=== PATIENT | male | born 1960 | race Caucasian/White ===

== ENCOUNTER 2016-04-03 15:24 | Emergency (ER) | payer OTHER, MEDICARE ==
[2016-04-03] MEDS ORDERED: ASPIRIN 81 MG TABLET, CHEWABLE PO ONE (15:46)
--- NOTE | 2016-04-03 15:47 | ER Document Report ---
ED Medical Screen (RME) - General Stated Complaint: CHEST PAIN Mode of Arrival: Ambulatory Information source: Patient Notes: Patient complains of chest pain off and on since yesterday. Patient denies any nausea or vomiting. Patient reports chronic shortness of breath but does not report any change in his typical dyspnea symptoms. hx: Chronic back pain I have greeted and performed a rapid initial assessment of this patient. A comprehensive ED assessment and evaluation of the patient, analysis of test results and completion of the medical decision making process will be conducted by additional ED providers. TRAVEL OUTSIDE OF THE [place] IN LAST 30 DAYS: No - Related Data Allergies/Adverse Reactions: cortisone [Cortisone] Allergy (Verified 04/03/16 15:44) Sulfa (Sulfonamide Antibiotics) Allergy (Verified 04/03/16 15:44) Past Medical History - Past Medical History Cardiac Medical History: Reports: Hx Coronary Artery Disease, Hx Heart Attack, Hx Hypercholesterolemia, Hx Hypertension Denies: Hx Congestive Heart Failure, Hx DVT, Hx Pulmonary Embolism Pulmonary Medical History: Reports: Hx Sleep Apnea Denies: Hx Asthma, Hx COPD Neurological Medical History: Denies: Hx Seizures Endocrine Medical History: Denies: Hx Diabetes Mellitus Type 1, Hx Diabetes Mellitus Type 2, Hx Hyperthyroidism, Hx Hypothyroidism GI Medical History: Reports: Hx Gastroesophageal Reflux Disease, Hx Colonoscopy. Denies: Hx Cirrhosis, Hx Hepatitis Musculoskeltal Medical History: Reports Hx Arthritis, Reports Hx Muscle Spasm Skin Medical History: Denies Hx Eczema, Denies Hx Psoriasis Psychiatric Medical History: Reports: Hx Depression Infectious Medical History: Denies: Hx Hepatitis Past Surgical History: Reports: Hx Orthopedic Surgery - l knee, neck - Immunizations Hx Diphtheria, Pertussis, Tetanus Vaccination: Yes Physical Exam - Vital signs Vitals: Temp Pulse Resp BP Pulse Ox 98.3 F 88 18 118/81 96 04/03/16 15:43 04/03/16 15:43 04/03/16 15:43 04/03/16 15:43 04/03/16 15:43 - Cardiovascular Rhythm: Regular Heart sounds: S1 appreciated, S2 appreciated Course - Vital Signs Vital signs: Temp Pulse Resp BP Pulse Ox 98.3 F 88 18 118/81 96 04/03/16 15:43 04/03/16 15:43 04/03/16 15:43 04/03/16 15:43 04/03/16 15:43
[2016-04-03 16:05] LABS: ABSOLUTE BASOPHILS # (AUTO) 0.1 10^3/uL (0.0-0.2); ABSOLUTE EOSINOPHILS # (AUTO) 0.1 10^3/uL (0.0-0.6); ABSOLUTE LYMPHOCYTES (AUTO) 2.5 10^3/uL (0.5-4.7); ABSOLUTE MONOCYTES (AUTO) 1.1 10^3/uL (0.1-1.4); HEMATOCRIT 43.8 % (37.9-51.0); HGB HCT DIFFERENCE 1.2; MEAN CORPUSCULAR HEMOGLOBIN 31.8 pg (27.0-33.4); MEAN CORPUSCULAR HGB CONC 34.1 g/dL (32.0-36.0); MEAN CORPUSCULAR VOLUME 93 fl (80-97); RED CELL DISTRIBUTION WIDTH 13.4 % (11.5-14.0); WHITE BLOOD COUNT 10.8 10^3/uL (4.0-10.5)
[2016-04-03 16:26] LABS: ALANINE AMINOTRANSFERASE 35 U/L (21-72); ALBUMIN 4.3 g/dL (3.5-5.0); ALKALINE PHOSPHATASE 83 U/L (38-126); ANION GAP 12 (5-19); ASPARTATE AMINO TRANSFERASE 26 U/L (17-59); BILIRUBIN,TOTAL 0.3 mg/dL (0.2-1.3); BLOOD UREA NITROGEN 15 mg/dL (7-20); CALCIUM 10.1 mg/dL (8.4-10.2); CARBON DIOXIDE 26 mmol/L (22-30); CHLORIDE 101 mmol/L (98-107); CREATINE KINASE 51 U/L (55-170); CREATININE RESULT 0.93 mg/dL (0.52-1.25); GLUCOSE 112 mg/dL (75-110); LIPASE 150.4 U/L (23-300); MAGNESIUM 1.9 mg/dL (1.6-2.3); POTASSIUM 4.2 mmol/L (3.6-5.0); SODIUM 138.5 mmol/L (137-145)
[2016-04-03 16:35] LABS: CREATINE KINASE MB 0.28 ng/mL (<4.55); TROPONIN I < 0.012 ng/mL
--- NOTE | 2016-04-03 17:37 | ER Document Report ---
ED General - General Chief Complaint: Chest Pain Stated Complaint: CHEST PAIN Mode of Arrival: Ambulatory Notes: The patient is a 55-year-old male, past medical history neuropathy, C-spine surgery a year ago, hypertension, presents with several days of left lateral chest wall cramping, 2 days of cramping on the right chest wall and tingling over his right shoulder. He has not had this before. He took his pain medication (he thinks it's Meloxicam) with some relief of his symptoms. He denies leg swelling, fevers, cough, neck pain or back pain, current chest pain, shortness of breath, nausea, vomiting, numbness or weakness. TRAVEL OUTSIDE OF THE [place] IN LAST 30 DAYS: No - Related Data Allergies/Adverse Reactions: cortisone [Cortisone] Allergy (Verified 04/03/16 15:44) Sulfa (Sulfonamide Antibiotics) Allergy (Verified 04/03/16 15:44) Past Medical History - General Information source: Patient - Social History Smoking Status: Current Every Day Smoker Chew tobacco use (# tins/day): No Frequency of alcohol use: Occasional Drug Abuse: None Family History: Reviewed & Not Pertinent Patient has suicidal ideation: No Patient has homicidal ideation: No - Past Medical History Cardiac Medical History: Reports: Hx Coronary Artery Disease, Hx Heart Attack, Hx Hypercholesterolemia, Hx Hypertension Denies: Hx Congestive Heart Failure, Hx DVT, Hx Pulmonary Embolism Pulmonary Medical History: Reports: Hx Sleep Apnea Denies: Hx Asthma, Hx COPD Neurological Medical History: Denies: Hx Seizures Endocrine Medical History: Denies: Hx Diabetes Mellitus Type 1, Hx Diabetes Mellitus Type 2, Hx Hyperthyroidism, Hx Hypothyroidism Renal/ Medical History: Denies: Hx Peritoneal Dialysis GI Medical History: Reports: Hx Gastroesophageal Reflux Disease, Hx Colonoscopy. Denies: Hx Cirrhosis, Hx Hepatitis Musculoskeltal Medical History: Reports Hx Arthritis, Reports Hx Muscle Spasm Skin Medical History: Denies Hx Eczema, Denies Hx Psoriasis Psychiatric Medical History: Reports: Hx Depression Infectious Medical History: Denies: Hx Hepatitis Past Surgical History: Reports: Hx Orthopedic Surgery - l knee, neck - Immunizations Hx Diphtheria, Pertussis, Tetanus Vaccination: Yes Review of Systems - Review of Systems Notes: REVIEW OF SYSTEMS: CONSTITUTIONAL: -fevers, -chills EENT: -eye pain, -difficulty swallowing, -nasal congestion CARDIOVASCULAR: +chest pain, -syncope. RESPIRATORY: -cough, -SOB GASTROINTESTINAL: -abdominal pain, -nausea, -vomiting, -diarrhea GENITOURINARY: -dysuria, -hematuria MUSCULOSKELETAL: -back pain, -neck pain SKIN: -rash or skin lesions. HEMATOLOGIC: -easy bruising or bleeding. LYMPHATIC: -swollen, enlarged glands. NEUROLOGICAL: -altered mental status or loss of consciousness, -headache, - neurologic symptoms PSYCHIATRIC: -anxiety, -depression. ALL OTHER SYSTEMS REVIEWED AND NEGATIVE. Physical Exam - Vital signs Vitals: Temp Pulse Resp BP Pulse Ox 98.3 F 88 18 118/81 96 04/03/16 15:43 04/03/16 15:43 04/03/16 15:43 04/03/16 15:43 04/03/16 15:43 - Notes Notes: PHYSICAL EXAMINATION: GENERAL: Well-appearing, well-nourished and in no acute distress. HEAD: Atraumatic, normocephalic. EYES: Pupils equal round and reactive to light, extraocular movements intact, sclera anicteric, conjunctiva are normal. ENT: nares patent, oropharynx clear without exudates. Moist mucous membranes. NECK: Normal range of motion, supple without lymphadenopathy LUNGS: Breath sounds clear to auscultation bilaterally and equal. No wheezes rales or rhonchi. HEART: Regular rate and rhythm without murmurs ABDOMEN: Soft, nontender, normoactive bowel sounds. No guarding, no rebound. No masses appreciated. EXTREMITIES: Normal range of motion, no pitting or edema. No cyanosis. NEUROLOGICAL: Cranial nerves grossly intact. Normal speech, normal gait. Normal sensory, motor, and reflex exams. PSYCH: Normal mood, normal affect. SKIN: Warm, Dry, normal turgor, no rashes or lesions noted. Course - Re-evaluation Re-evalutation: Patient with vague paresthesias and chest pain. EKG is unremarkable and 2 sets of troponins are negative. Other labs are also unremarkable. HEART score 1. Symptoms atypical for PE and aortic dissection at this time. Will have him follow-up with his primary care physician in one to 2 days for further evaluation and treatment of his symptoms. - Vital Signs Vital signs: Temp Pulse Resp BP Pulse Ox 98.3 F 88 18 118/81 96 04/03/16 15:43 04/03/16 15:43 04/03/16 15:43 04/03/16 15:43 04/03/16 15:43 - Laboratory Result Diagrams: 04/03/16 15:55 04/03/16 15:55 Laboratory results interpreted by me: 04/03/16 04/03/16 15:55 15:55 WBC 10.8 H Glucose 112 H Creatine Kinase 51 L - Diagnostic Test Radiology reviewed: Image reviewed, Reports reviewed - EKG Interpretation by Me EKG shows normal: Sinus rhythm, [place], Intervals, QRS Complexes, ST-T Waves Discharge - Discharge Clinical Impression: Chest pain Qualifiers: Chest pain type: unspecified Qualified Code(s): R07.9 - Chest pain, unspecified Condition: Stable Disposition: HOME, SELF-CARE Additional Instructions: You must call your primary care physician in 2 days to schedule a follow-up appointment to recheck your symptoms. Return to the ER if you have worsening symptoms or any other concerns. CHEST PAIN OF UNCLEAR CAUSE: The exact cause of your chest pain isn't clear. Fortunately, there is no evidence of a dangerous medical condition. Further testing may be required to find the source of the pain. Most often, we find that this pain is coming from the chest wall -- the muscles or rib joints in the chest. But chest pain can come from the lung and lung lining, the esophagus, the heart valves or heart lining, and even the stomach or gallbladder. Rest. Eat lightly until the pain is gone. We may prescribe medicine for pain and inflammation. You should call the physician immediately if the pain radiates to the shoulder, jaw or arms; if you start to run a fever or develop a cough; or if you develop shortness of breath, or other new or alarming symptoms. NORMAL EXAM AND WORKUP: At this time, your examination and workup show no significant abnormality. No significant abnormal physical findings were noted. All laboratory, EKG, and imaging (x-ray, CT scans, ultrasound) studies that were ordered show no significant abnormality. Although your examination and all studies that were ordered showed no significant abnormal finding, there are no examinations and no studies that are 100% accurate. There is always the possibility that some abnormality could exist and not be detected with physical examination or within the limits and capabilities of laboratory and other studies. You should return or follow up as you were instructed on your visit today for further evaluation if your symptoms do not resolve. CHEST WALL PAIN: Your chest pain may be coming from the chest wall. This is often caused by straining the muscles or joints in the chest during physical activity, direct trauma, coughing, or vigorous vomiting. Persons with arthritis are especially prone to this type of pain, due to inflammation of the cartilage joints near the breast bone. Occasionally, no cause can be found. Rest from strenuous physical activity. This kind of chest pain is usually made worse by movement of the chest. Depending on the symptoms, we may prescribe medicine for pain, muscle relaxation, and antiinflammatory effects. If the pain is new, and seems to be due to muscle strain, cold packs can help. Otherwise, apply gentle warmth to the painful area for 15 minutes every hour or two. You should call contact the doctor immediately if things change. Further evaluation is needed if you develop a fever or cough, if the nature of the pain changes, or if you become short of breath. ANGINA EPISODE: Your physician has diagnosed the pain you experienced as an episode of angina. Angina occurs when a portion of the heart muscle temporarily lacks oxygen. It does not cause any permanent heart damage, but serves as a warning. Hospitalization is not necessary now. Evaluation of your cardiac condition , and medical therapy for angina will be necessary. It's important you be sure to keep all appointments and take medication exactly as prescribed. Angina is usually treated with a type of "nitrate" medication. This is available as ointment, pills, or sublingual (under the tongue) tablets. Depending on your clinical situation, other medications may be added to help control angina. These may include beta blockers or calcium blockers. If episodes of angina are occurring with increased frequency, or if chest pain lasts longer than 15 minutes or does not respond to nitroglycerin, you must seek emergency medical care immediately. ACID REFLUX DISEASE (GERD): Gastro-Esophageal Reflux Disease (GERD) is caused by stomach acid refluxing back up into the esophagus. The valve at the end of the esophagus may be weak. This is common in persons with a hiatal hernia. GERD symptoms can include indigestion, chest pain, heartburn, or food "sticking." Certain foods, alcohol, and aspirin can make GERD worse. Treatment depends on the severity. Usually, antacids or acid-suppressing medicines are used. When the esophagus is acutely inflamed, the physician will often prescribe membrane-protective drugs such as Carafate. Some patients benefit from medication such as Reglan that tightens the valve at the top of the stomach. Avoid those foods that bring on your symptoms. For many people, these foods are coffee, chocolate, onions, garlic, and carbonated drinks. Don't use alcohol, aspirin, caffeine, or tobacco. Don't eat late at night -- within 4 hours of bedtime. Don't over-eat. If necessary, elevate the head of your bed about 4 inches so that stomach acid will not roll up into your esophagus. Call the doctor if you develop severe chest pain, inability to swallow fluids, fever, or worsening symptoms. ASPIRIN: Aspirin has been shown to have a beneficial effect on blood circulation by reducing the clotting effect of platelets in the blood. These beneficial effects can be achieved by taking just a single baby (81 mg) aspirin a day. It is recommended that any person over the age of forty take a single baby aspirin every day for heart and brain circulation, unless you are allergic to aspirin or have some significant bleeding disorder. It is strongly recommended that people who have proven cardiac or blood circulation disturbances should take a baby aspirin every day. NITRATES: Nitroglycerin and related longer-acting nitrate medications are used to prevent or treat attacks of angina. These medicines dilate blood vessels, decreasing the work of the heart, and improving its supply of oxygen. Many different forms are available, including sublingual tablets (used under the tongue), sprays, skin patches, and long-acting pills. If the particular form of medication you have been given is not working well for you, contact your doctor. Long-acting forms: Take exactly as prescribed. Sudden stopping of medication can provoke increased attacks. Sublingual tabs or spray: A headache will usually occur with use. Sit or lie while waiting for the pain to go away. If angina doesn't respond to three doses (five minutes apart), call for emergency assistance. ANTACID THERAPY: You have been instructed to start antacid therapy. Antacids directly neutralize stomach acid. This is useful for acid irritation of the esophagus, gastritis, and ulcers. You should take two tablespoons of antacid one hour after each meal and three hours after each meal. If you are not eating, take the antacid every two hours. If you are using a concentrate (such as Maalox TC), use only one tablespoon. Many antacids affect the bowels. The most common problem is diarrhea. In this case, a pure aluminum hydroxide antacid (such as AlternaGel) can be substituted for some or all doses. If the problem is constipation, add a teaspoon of Milk of Magnesia to each dose. Call the doctor if you experience continued diarrhea or constipation, or if you develop lightheadedness, bloody stool or vomitus, severe abdominal pain, or black stool. PRILOSEC (ACID PUMP INHIBITOR): Prilosec (omeprazole) is an acid-pump inhibitor. It blocks the secretion of hydrogen ions in the acid-producing cells of the stomach. Prilosec keeps your stomach from making acid. Take all medication as prescribed, even after the pain is gone. Regular antacids may be added as needed if you have symptoms while taking this medicine. There are usually no side effects from this medication. Contact your doctor if there is fever, rash, yellow skin color, increasing abdominal pain, weakness, or unusual bruising. Return at once if you develop lightheadedness, black or bloody stool, or bloody vomitus. ORAL NARCOTIC MEDICATION: You have been given a prescription for pain control. This medication is a narcotic. It's best taken with food, as nausea can result if taken on an empty stomach. Don't operate machinery or drive within six hours of taking this medication. Do not combine this medicine with alcohol, or with any medication which can cause sedation (such as cold tablets or sleeping pills) unless you get permission from the physician. Narcotics tend to cause constipation. If possible, drink plenty of fluids and eat a diet high in fiber and fruits. Please be aware that prescription narcotics also have the potential for abuse. People become addicted to these medications because of the general sense of wellbeing that they induce. This feeling along with a significant reduction in tension, anxiety, and aggression provides a stimulating seductive quality to these drugs. Once your pain is under control, we encourage you to discard your unused narcotics. FOLLOW-UP CARE: If you have been referred to a physician for follow-up care, call the physician s office for an appointment as you were instructed or within the next two days. If you experience worsening or a significant change in your symptoms, notify the physician immediately or return to the Emergency Department at any time for re-evaluation.
--- NOTE | 2016-04-03 18:09 | EKG REPORT ---
SEVERITY:- NORMAL ECG - SINUS RHYTHM : Confirmed by: Marisol Sanchez MD 03-Apr-2016 18:07:26
[2016-04-03 19:45] VITALS: BP 119/83
== END 2016-04-03 19:45 | disposition home or self-care (01) ==
LOC: ER 15:24
DX: R07.89 Other chest pain (principal); R20.2 Paresthesia of skin; I25.10 Atherosclerotic heart disease of native coronary artery without angina pectoris; I25.2 Old myocardial infarction; I10 Essential (primary) hypertension; E11.40 Type 2 diabetes mellitus with diabetic neuropathy, unspecified; F17.200 Nicotine dependence, unspecified, uncomplicated; Z88.8 Allergy status to other drugs, medicaments and biological substances; Z88.2 Allergy status to sulfonamides; Z98.890 Other specified postprocedural states
CPT/HCPCS: 36415; 71020; 80053; 82550; 82553; 83690; 83735; 84484; 85025; 93005; 93010; 99285

== ENCOUNTER 2016-07-06 18:35 | Emergency (ER) | payer OTHER, MEDICARE ==
[2016-07-06] MEDS ORDERED: LIDOCAINE 1% INJ-PF (10 MG/ML) 30 ML SDV INJ ONE (20:11)
--- NOTE | 2016-07-06 20:44 | ER Document Report ---
ED General - General Chief Complaint: Shoulder Pain Stated Complaint: RIGHT SIDE WEAKNESS/LEFT LEG NUMBNESS Time Seen by Provider: 07/06/16 19:46 Mode of Arrival: Ambulatory Information source: Patient Notes: 55-year-old male presents with complaints of neck pain pain down his right arm that worsens with movement as well as sensation that there is something in his throat, with also left leg intermittent numbness which has now resolved. With also complaint of right hip pain, as well as a an abscess to the right groin. Patient notes he was on antibiotics for the groin, that surgery for his throat. Patient admits to chronic back pain notes that the leg pain and numbness has improved over the past few days TRAVEL OUTSIDE OF THE [place] IN LAST 30 DAYS: No - HPI Onset: Other Onset/Duration: Intermittent Quality of pain: Achy Severity: Mild Pain Level: 1 Associated symptoms: Other Exacerbated by: Movement Relieved by: Denies Similar symptoms previously: Yes Recently seen / treated by doctor: Yes - Related Data Allergies/Adverse Reactions: cortisone [Cortisone] Allergy (Verified 04/03/16 15:44) Sulfa (Sulfonamide Antibiotics) Allergy (Verified 04/03/16 15:44) Past Medical History - Social History Smoking Status: Never Smoker Cigarette use (# per day): No Chew tobacco use (# tins/day): No Smoking Education Provided: No Family History: Reviewed & Not Pertinent - Past Medical History Cardiac Medical History: Reports: Hx Coronary Artery Disease, Hx Heart Attack, Hx Hypercholesterolemia, Hx Hypertension Denies: Hx Congestive Heart Failure, Hx DVT, Hx Pulmonary Embolism Pulmonary Medical History: Reports: Hx Sleep Apnea Denies: Hx Asthma, Hx COPD Neurological Medical History: Denies: Hx Seizures Endocrine Medical History: Denies: Hx Diabetes Mellitus Type 1, Hx Diabetes Mellitus Type 2, Hx Hyperthyroidism, Hx Hypothyroidism Renal/ Medical History: Denies: Hx Peritoneal Dialysis GI Medical History: Reports: Hx Gastroesophageal Reflux Disease, Hx Colonoscopy. Denies: Hx Cirrhosis, Hx Hepatitis Musculoskeltal Medical History: Reports Hx Arthritis, Reports Hx Muscle Spasm Skin Medical History: Denies Hx Eczema, Denies Hx Psoriasis Psychiatric Medical History: Reports: Hx Depression Infectious Medical History: Denies: Hx Hepatitis Past Surgical History: Reports: Hx Orthopedic Surgery - l knee, neck - Immunizations Hx Diphtheria, Pertussis, Tetanus Vaccination: Yes Review of Systems - Review of Systems Notes: PHYSICAL EXAMINATION: GENERAL: Well-appearing, well-nourished and in no acute distress. HEAD: Atraumatic, normocephalic. EYES: Pupils equal round and reactive to light, extraocular movements intact, sclera anicteric, conjunctiva are normal. ENT: Nares patent, oropharynx clear without exudates. Moist mucous membranes. NECK: Normal range of motion, supple without lymphadenopathy LUNGS: Breath sounds clear to auscultation bilaterally and equal. No wheezes rales or rhonchi. HEART: Regular rate and rhythm without murmurs ABDOMEN: Soft, nontender, nondistended abdomen. No guarding, no rebound. No masses appreciated. Musculoskeletal: Normal range of motion, no pitting or edema. No cyanosis. NEUROLOGICAL: Cranial nerves grossly intact. Normal speech, normal gait. Normal sensory, motor exams PSYCH: Normal mood, normal affect. SKIN: 1 x 1 cm minimally fluctuant abscess right groin Physical Exam - Vital signs Vitals: Temp Pulse Resp BP Pulse Ox 98 F 85 16 142/89 H 97 07/06/16 18:39 07/06/16 18:39 07/06/16 18:39 07/06/16 18:39 07/06/16 18:39 Course - Re-evaluation Re-evalutation: 07/06/16 20:44 Patient appears to have multiple complaints none of which at this time appear to be emergent. There is no cauda equina concerns given his symptoms are better than they were previously. His groin will be I&D CT is pending of the neck 07/06/16 22:24 Patient was anesthetized small amount of pus was drained, CT is consistent with some lucency however given lack of fever and patient overall looks well chronic osteomyelitis does not particularly fit with this presentation. Patient denies any fevers states he will follow up with [facility] Patient has been instructed he must do so or he must return immediately if there are any other concerns After performing a Medical Screening Examination, I estimate there is LOW risk for EXPANDING OR RUPTURED ABDOMINAL AORTIC ANEURYSM, CAUDA EQUINA SYNDROME, EPIDURAL MASS LESION, or HERNIATED DISK CAUSING SEVERE SPINAL STENOSIS, thus I consider the discharge disposition reasonable. I have reevaluated this patient multiple times and no significant life threatening changes are noted. The patient and I have discussed the diagnosis and risks, and we agree with discharging home and close follow-up. We also discussed returning to the Emergency Department immediately if new or worsening symptoms occur with the understanding that symptoms and presentations can change. We have discussed the symptoms which are most concerning (e.g., saddle anesthesia, urinary or bowel incontinence or retention, changing or worsening pain) that necessitate immediate return. - Vital Signs Vital signs: Temp Pulse Resp BP Pulse Ox 98 F 85 19 124/84 95 07/06/16 18:39 07/06/16 18:39 07/06/16 20:31 07/06/16 20:30 07/06/16 20:31 - Diagnostic Test Radiology reviewed: Image reviewed, Reports reviewed - Report given to patient Procedures - Incision and Drainage Right Groin Time completed: 22:23 Type: Simple Anesthetic type: 1% Lidocaine mL's of anesthetic: 5 Blade size: 11 I&D procedure: Shurclens applied, Sterile dressing applied Incision Method: Incision made by scalpel Amount/type of drainage: small amoiunt of blood Discharge - Discharge Clinical Impression: Groin abscess, Chronic cervical pain Condition: Stable Disposition: HOME, SELF-CARE Instructions: Abscess ([facility]), Post Incision and Drainage Additional Instructions: You must follow up with [facility] for your neck pain immediately or return if there are any fevers or any other concerns Prescriptions: Oxycodone HCl/Acetaminophen [Percocet 5-325 mg Tablet] 1 - 2 tab PO Q4H PRN #15 tablet PRN Reason:
--- NOTE | 2016-07-06 21:46 | RADIOLOGY REPORT (SQ) ---
EXAM DESCRIPTION: CT SOFT TISSUE NECK WITHOUT COMPLETED DATE/TIME: 07/06/2016 8:52 pm REASON FOR STUDY: bony growth? COMPARISON: 03/24/2015 TECHNIQUE: Noncontrast scanning from skull base through lung apices with review of bone, soft tissue and lung windows. Reconstructed coronal and sagittal MPR images reviewed. All images stored on PAC S. All CT scanners at this facility use dose modulation, iterative reconstruction, and/or weight based d osing when appropriate to reduce radiation dose to as low as reasonably achievable (ALARA). [facility]: Dose Right [facility]: CareDose [facility]: Dose Right [facility]: Teradose 4D [facility]: Chic by Choice RADIATION DOSE: 17.20 mGy. LIMITATIONS: None. FINDINGS: SKULL BASE: Intact. MAJOR SALIVARY GLANDS: No solid or cystic masses. No inflammatory changes. LYMPHADENOPATHY: No bulky adenopathy. MUCOSAL MASSES OR ASYMMETRY: No mucosal masses or asymmetry. LARYNX/CORDS: No abnormal findings. LUNG APICES: Similar nodularity. BONES: Anterior plate and screw fixation hardware from C4 -C7 appears intact Increased sclerosis of the C4 and C5 vertebral bodies. There has also been interval development of the 3.5 mm lucency in th e left aspect of the inferior C4 vertebral body. No acute fracture. THYROID: Normal size. No masses. PARANASAL SINUSES: Clear. OTHER: No other significant finding. IMPRESSION: Increased sclerosis of the C4 and C5 vertebral bodies. There has also been interval dev elopment of the 3.5 mm lucency in the left aspect of the inferior C4 vertebral body. These osseous f indings are suspicious for possible chronic osteomyelitis. No acute soft tissue findings. TECHNICAL DOCUMENTATION: JOB ID: [id number] Quality ID # [id number]: Final reports with documentation of one or more dose reduction techniques (e.g., Au tomated exposure control, adjustment of the mA and/or kV according to patient size, use of iterative reconstruction technique) 2010 [email or web address]- All Rights Reserved
[2016-07-06 23:17] VITALS: BP 131/79
== END 2016-07-06 23:17 | disposition home or self-care (01) ==
LOC: ER 18:35
PROC: 0H9HXZZ Drainage of Right Upper Leg Skin, External Approach (ICD-10-PCS; principal; 2016-07-06)
DX: L02.214 Cutaneous abscess of groin (principal); M54.2 Cervicalgia; M25.511 Pain in right shoulder; R53.1 Weakness; R22.0 Localized swelling, mass and lump, head
CPT/HCPCS: 70490; 99284

== ENCOUNTER 2016-08-06 14:14 | Emergency (ER) | payer OTHER, MEDICARE ==
[2016-08-06] MEDS ORDERED: KETOROLAC TROMETHAMINE INJ/PF 30 MG/1 ML SDV IM ONE (15:30)
[2016-08-06] MEDS ORDERED: TRAMADOL HCL 50 MG TABLET PO ONE (15:30)
[2016-08-06] MEDS ORDERED: LIDOCAINE 5% (700 MG) TRANSDERMAL ADH..PATCH TP ONE (15:36)
--- NOTE | 2016-08-06 15:37 | ER Document Report ---
HPI - HPI Pain Level: 5 Notes: Patient with past medical history of cervicalgia, cervical fusion, presents to the ED complaining of chronic neck pain with burning pain down his right greater than left upper extremities. Patient has been being seen by the [facility]. He has had previous procedures done with [facility]. Patient states that the pain worsens with extension of his neck or abduction of his right arm. Patient also states that the burning radiates from his neck down to his right hand. Patient has previously been on tramadol through the [facility] but they recently decided to stop that medication. Patient also takes gabapentin 600 mg 3 times daily. Patient is scheduled for an EMG on 12 August and an evaluation with a neurosurgeon/orthopedics on 18 August in [place]. Patient states that he has not acutely injured or re-exacerbated his symptoms and has been having these issues for the last couple of months. Patient states that he just did not know what else to do the disease and pain. Denies any fever, headaches, changes in vision/mentation/speech, URI, sore throat, dysphagia, dysphasia, chest pain, palpitations, syncope, cough, wheeze, shortness of breath, dyspnea, abdominal pain, nausea vomiting, diarrhea, constipation, dysuria, hematuria, urinary retention, loss of control of bowel/bladder, muscle weakness/paralysis, seizures, or rash. - ROS Notes: REVIEW OF SYSTEMS: CONSTITUTIONAL : Denies fever, chills, or sweats. Denies recent illness. EENT: Denies eye, ear, throat, or mouth pain or symptoms. Denies nasal or sinus congestion or discharge. Denies throat, tongue, or mouth swelling or difficulty swallowing. CARDIOVASCULAR: Denies chest pain. Denies palpitations or racing or irregular heart beat. Denies ankle edema. RESPIRATORY: Denies cough, cold, or chest congestion. Denies shortness of breath, difficulty breathing, or wheezing. GASTROINTESTINAL: Denies abdominal pain or distention. Denies nausea, vomiting , or diarrhea. Denies blood in vomitus, stools, or per rectum. Denies black, tarry stools. Denies constipation. GENITOURINARY: Denies difficulty urinating, painful urination, burning, frequency, blood in urine, or discharge. MUSCULOSKELETAL: see hpi SKIN: Denies rash, lesions or sores. NEUROLOGICAL: Denies confusion or altered mental status. Denies passing out or loss of consciousness. Denies dizziness or lightheadedness. see HPI. ALL OTHER SYSTEMS REVIEWED AND NEGATIVE. Dictation was performed using [employer] voice recognition software - CARDIOVASCULAR Cardiovascular: DENIES: Chest pain - REPRODUCTIVE Reproductive: DENIES: : - DERM Skin Color: Normal Past Medical History - Social History Smoking Status: Current Every Day Smoker Chew tobacco use (# tins/day): Yes - 1/2 ppd Frequency of alcohol use: None Drug Abuse: None Family History: Reviewed & Not Pertinent Patient has suicidal ideation: No Patient has homicidal ideation: No - Past Medical History Cardiac Medical History: Reports: Hx Coronary Artery Disease, Hx Heart Attack, Hx Hypercholesterolemia, Hx Hypertension Denies: Hx Congestive Heart Failure, Hx DVT, Hx Pulmonary Embolism Pulmonary Medical History: Reports: Hx Sleep Apnea Denies: Hx Asthma, Hx COPD Neurological Medical History: Denies: Hx Seizures Endocrine Medical History: Denies: Hx Diabetes Mellitus Type 1, Hx Diabetes Mellitus Type 2, Hx Hyperthyroidism, Hx Hypothyroidism Renal/ Medical History: Denies: Hx Peritoneal Dialysis GI Medical History: Reports: Hx Gastroesophageal Reflux Disease, Hx Colonoscopy. Denies: Hx Cirrhosis, Hx Hepatitis Musculoskeltal Medical History: Reports Hx Arthritis, Reports Hx Muscle Spasm Skin Medical History: Denies Hx Eczema, Denies Hx Psoriasis Psychiatric Medical History: Reports: Hx Depression Infectious Medical History: Denies: Hx Hepatitis Past Surgical History: Reports: Hx Orthopedic Surgery - l knee, neck - Immunizations Hx Diphtheria, Pertussis, Tetanus Vaccination: Yes Vertical Provider Document - CONSTITUTIONAL Notes: PHYSICAL EXAMINATION: GENERAL: Well-appearing, well-nourished and in no acute distress. HEAD: Atraumatic, normocephalic. No howell sign, non-tender. EYES: Pupils equal round and reactive to light, extraocular movements intact, sclera anicteric, conjunctiva are normal. ENT: EAC clear b/l. TM's intact b/l without erythema, fluid, or perforation. Nares patent and without discharge. oropharynx clear without exudates. No tonsilar hypertrophy or erythema. Moist mucous membranes. No sinus tenderness. NECK: LROM to extension and lateral flexion. No rigidity. + tenderness to palpation of the cervical paracervical soft tissues. + tenderness to the trap mm R>L. LUNGS: Breath sounds clear to auscultation bilaterally and equal. No wheezes rales or rhonchi. HEART: Regular rate and rhythm without murmurs, rubs, gallops. Musculoskeletal: FROM to passive/active to UE's b/l. Strength 5+/5. Tone intact b/l. Extremities: No cyanosis, clubbing, or edema b/l. Peripheral pulses 2+. Capillary refill less than 3 seconds. NEUROLOGICAL: Cranial nerves grossly intact. Normal speech, normal gait. motor exams (FLORES's, finger to nose, heel to willard) Rhomberg neg. Pronator drift neg. Dec to light touch to the rt hand vs left hand. Reflexes 1+ b/l UE's. PSYCH: Normal mood, normal affect. SKIN: Warm, Dry, normal turgor, no rashes or lesions noted. - INFECTION CONTROL TRAVEL OUTSIDE OF THE [place] IN LAST 30 DAYS: No - RESPIRATORY O2 Sat by Pulse Oximetry: 100 Course - Re-evaluation Re-evalutation: 08/06/16 15:[address] Hough: Pt is an afebrile, well-hydrated, 56yo male who presents with chronic cervicalgia. There is no acute focal neurological deficit on exam, today aside from mild difference in subjective light touch (Rt hand vs lt). It appears as though his symptoms are chronic and not acute in nature. Low suspicion for any severe stenosis, airway compromise, meningismus, systemic illness. Looking at previous CT which showed suspicion for chronic osteomyelitis, his current symptomatology does not correlate with a progressing/ongoing osteomyelitis at his current presentation. Pt is allergic to cortisone so no decadron could be given today. Toradol 15mg given IM along with Tramadol 50mg now and a lidoderm patch. Addressed with patient that we do not suspect any acute emergent condition at this time and he should get f/u with his PCM in the next 2-3 days. I believe that his PCM does have him on a good plan with an EMG and consult with neurosurgery over the next couple of weeks. Pt is more than welcome to return to the ED with any worsening/concerning symptoms as needed otherwise. Pt verbalized understanding and is in agreement. Conservative measures otherwise. - Vital Signs Vital signs: Temp Pulse Resp BP Pulse Ox 98.1 F 88 18 149/101 H 100 08/06/16 14:18 08/06/16 14:18 08/06/16 14:18 08/06/16 14:18 08/06/16 14:18 Discharge - Discharge Clinical Impression: Neck pain, Radiculitis Condition: Stable Disposition: HOME, SELF-CARE Additional Instructions: Maintain fluid intake Take meds as directed Rest, Ice, Compression, Elevation as needed Tylenol/ibuprofen as needed Light stretches daily Strength exercises as able Moist heat and massage may help F/u with your PCP in 2-3 days for a recheck Return to the ED with any worsening symptoms and/or development of fever, headache, chest pain, palpitations, syncope, shortness of breath, trouble breathing, abdominal pain, n/v/d, blood in stool/urine, urinary retention, muscle weakness/paralysis, loss of control of bowel/bladder, or other worsening symptoms that are concerning to you. Forms: Elevated Blood Pressure
[2016-08-06 16:24] VITALS: BP 132/88
== END 2016-08-06 16:00 | disposition home or self-care (01) ==
LOC: ER 14:14
DX: G89.29 Other chronic pain (principal); M54.2 Cervicalgia; M54.10 Radiculopathy, site unspecified; Z98.1 Arthrodesis status; F17.210 Nicotine dependence, cigarettes, uncomplicated; I25.10 Atherosclerotic heart disease of native coronary artery without angina pectoris; I25.2 Old myocardial infarction; I10 Essential (primary) hypertension; Z88.8 Allergy status to other drugs, medicaments and biological substances; Z79.899 Other long term (current) drug therapy
CPT/HCPCS: 99283; 96372; J1885

== ENCOUNTER 2016-10-29 21:18 | Emergency (ER) | payer OTHER, MEDICARE ==
[2016-10-29] MEDS ORDERED: ASPIRIN 81 MG TABLET, CHEWABLE PO ONE (21:24)
--- NOTE | 2016-10-29 22:07 | RADIOLOGY REPORT (SQ) ---
EXAM DESCRIPTION: CHEST SINGLE VIEW COMPLETED DATE/TIME: 10/29/2016 9:57 pm REASON FOR STUDY: cp COMPARISON: 04/03/2016 EXAM PARAMETERS: NUMBER OF VIEWS: One view. TECHNIQUE: Single frontal radiographic view of the chest acquired. RADIATION DOSE: NA LIMITATIONS: None. FINDINGS: LUNGS AND PLEURA: No opacities, masses or pneumothorax. No pleural effusion. MEDIASTINUM AND HILAR STRUCTURES: No masses. Contour normal. HEART AND VASCULAR STRUCTURES: Heart normal in size. Normal vasculature. BONES: No acute findings. HARDWARE: None in the chest. OTHER: No other significant finding. IMPRESSION: NO ACUTE RADIOGRAPHIC FINDING IN THE CHEST. TECHNICAL DOCUMENTATION: JOB ID: [id number]
--- NOTE | 2016-10-29 22:26 | ER Document Report ---
ED General - General Chief Complaint: Chest Pain Stated Complaint: CHEST PAIN Time Seen by Provider: 10/29/16 22:23 TRAVEL OUTSIDE OF THE [place] IN LAST 30 DAYS: No - Related Data Allergies/Adverse Reactions: cortisone [Cortisone] Allergy (Verified 10/29/16 21:24) Sulfa (Sulfonamide Antibiotics) Allergy (Verified 10/29/16 21:24) Past Medical History - Social History Family History: Reviewed & Not Pertinent Patient has suicidal ideation: No Patient has homicidal ideation: No - Past Medical History Cardiac Medical History: Reports: Hx Coronary Artery Disease, Hx Heart Attack, Hx Hypercholesterolemia, Hx Hypertension Denies: Hx Congestive Heart Failure, Hx DVT, Hx Pulmonary Embolism Pulmonary Medical History: Reports: Hx Sleep Apnea Denies: Hx Asthma, Hx COPD Neurological Medical History: Denies: Hx Seizures Endocrine Medical History: Denies: Hx Diabetes Mellitus Type 1, Hx Diabetes Mellitus Type 2, Hx Hyperthyroidism, Hx Hypothyroidism Renal/ Medical History: Denies: Hx Peritoneal Dialysis GI Medical History: Reports: Hx Gastroesophageal Reflux Disease, Hx Colonoscopy. Denies: Hx Cirrhosis, Hx Hepatitis Musculoskeltal Medical History: Reports Hx Arthritis, Reports Hx Muscle Spasm Skin Medical History: Denies Hx Eczema, Denies Hx Psoriasis Psychiatric Medical History: Reports: Hx Depression Infectious Medical History: Denies: Hx Hepatitis Past Surgical History: Reports: Hx Orthopedic Surgery - l knee, neck - Immunizations Hx Diphtheria, Pertussis, Tetanus Vaccination: Yes Physical Exam - Vital signs Vitals: Temp Pulse Resp BP Pulse Ox 98.9 F 99 18 155/95 H 94 10/29/16 21:25 10/29/16 21:25 10/29/16 21:25 10/29/16 21:25 10/29/16 21:25 Course - Vital Signs Vital signs: Temp Pulse Resp BP Pulse Ox 98.9 F 99 18 155/95 H 94 10/29/16 21:25 10/29/16 21:25 10/29/16 21:25 10/29/16 21:25 10/29/16 21:25 - Laboratory Result Diagrams: 10/29/16 22:05 10/29/16 22:05 - EKG Interpretation by Me Additional EKG results interpreted by me: 10/29/16 22:25 EKG is reviewed and interpreted by me. EKG shows normal sinus rhythm with rate of [address] segment elevation or depression. No ischemic T-wave inversions. [place] level, QRS duration, QTc intervals are within normal range. No old EKG available for comparison.
[2016-10-29 22:30] LABS: ABSOLUTE EOSINOPHILS # (AUTO) 0.2 10^3/uL (0.0-0.6); ABSOLUTE LYMPHOCYTES (AUTO) 2.6 10^3/uL (0.5-4.7); ABSOLUTE MONOCYTES (AUTO) 1.2 10^3/uL (0.1-1.4); BASOPHILS % (AUTO) 0.4 % (0-2); EOSINOPHILS % (AUTO) 2.4 % (0-6); HEMATOCRIT 46.8 % (37.9-51.0); HEMOGLOBIN 16.3 g/dL (13.5-17.0); HGB HCT DIFFERENCE 2.1; LYMPHOCYTES % (AUTO) 25.4 % (13-45); MEAN CORPUSCULAR HEMOGLOBIN 31.8 pg (27.0-33.4); MEAN CORPUSCULAR HGB CONC 34.8 g/dL (32.0-36.0); MEAN CORPUSCULAR VOLUME 91 fl (80-97); MONOCYTES % (AUTO) 12.3 % (3-13); RED BLOOD COUNT 5.13 10^6/uL (4.35-5.55); RED CELL DISTRIBUTION WIDTH 14.3 % (11.5-14.0); SEGMENTED NEUTROPHILS % (AUTO) 59.5 % (42-78); WHITE BLOOD COUNT 10.2 10^3/uL (4.0-10.5)
--- NOTE | 2016-10-29 22:37 | ER Document Report ---
ED General - General Chief Complaint: Chest Pain Stated Complaint: CHEST PAIN Time Seen by Provider: 10/29/16 22:23 Notes: Patient is 56-year-old male who presents with complaints and heart palpitations. He also has pain in his right shoulder. Patient said he had the surgery March 2015 of his neck were that they "take out a small bone in his neck". He has since had some gradually worsening pain that shoots down the rest of his neck and into his right shoulder. He says he has had worsening of this pain last week. He had an MRI several days ago. He is awaiting the results of the MRI. He says tonight the pain became even worse and then he started having palpitations in his heart. He says is hard to describe what he is feeling in his heart. He does not have any actual pain in his chest or near his heart. He said the only pain is into the right shoulder. He again says his pain is the same pain is been having for a while it is just much more intense. No weakness or numbness into the hand. No other complaints at this time. He denies any history of coronary disease. He is a smoker. He does not have diabetes. TRAVEL OUTSIDE OF THE [place] IN LAST 30 DAYS: No - Related Data Allergies/Adverse Reactions: cortisone [Cortisone] Allergy (Verified 10/29/16 21:24) Sulfa (Sulfonamide Antibiotics) Allergy (Verified 10/29/16 21:24) Past Medical History - Social History Smoking Status: Current Every Day Smoker Frequency of alcohol use: None Drug Abuse: None Family History: Reviewed & Not Pertinent Patient has suicidal ideation: No Patient has homicidal ideation: No - Past Medical History Cardiac Medical History: Reports: Hx Coronary Artery Disease, Hx Heart Attack, Hx Hypercholesterolemia, Hx Hypertension Denies: Hx Congestive Heart Failure, Hx DVT, Hx Pulmonary Embolism Pulmonary Medical History: Reports: Hx Sleep Apnea Denies: Hx Asthma, Hx COPD Neurological Medical History: Denies: Hx Seizures Endocrine Medical History: Denies: Hx Diabetes Mellitus Type 1, Hx Diabetes Mellitus Type 2, Hx Hyperthyroidism, Hx Hypothyroidism Renal/ Medical History: Denies: Hx Peritoneal Dialysis GI Medical History: Reports: Hx Gastroesophageal Reflux Disease, Hx Colonoscopy. Denies: Hx Cirrhosis, Hx Hepatitis Musculoskeltal Medical History: Reports Hx Arthritis, Reports Hx Muscle Spasm Skin Medical History: Denies Hx Eczema, Denies Hx Psoriasis Psychiatric Medical History: Reports: Hx Depression Infectious Medical History: Denies: Hx Hepatitis Past Surgical History: Reports: Hx Orthopedic Surgery - l knee, neck - Immunizations Hx Diphtheria, Pertussis, Tetanus Vaccination: Yes Review of Systems - Review of Systems Notes: My Normal Review Basic REVIEW OF SYSTEMS: CONSTITUTIONAL : Denies fever, chills, or sweats. Denies recent illness. EENT: Denies eye, ear, throat, or mouth pain or symptoms. Denies nasal or sinus congestion. CARDIOVASCULAR: Denies chest pain. Has palpitations. RESPIRATORY: Denies cough, cold, or chest congestion. Denies shortness of breath, difficulty breathing, or wheezing. GASTROINTESTINAL: Denies abdominal pain. Denies nausea, vomiting, or diarrhea. GENITOURINARY: Denies difficulty urinating, painful urination, burning, frequency, or blood in urine. MUSCULOSKELETAL: Denies neck or back pain or joint pain or swelling. SKIN: Denies rash or skin lesions. NEUROLOGICAL: Denies altered mental status or loss of consciousness. Denies headache. Denies weakness or paralysis or loss of use of either side. Denies problems with gait or speech. Denies sensory or motor loss. ALL OTHER SYSTEMS REVIEWED AND NEGATIVE. Physical Exam - Vital signs Vitals: Temp Pulse Resp BP Pulse Ox 98.9 F 99 18 155/95 H 94 10/29/16 21:25 10/29/16 21:25 10/29/16 21:25 10/29/16 21:25 10/29/16 21:25 - Notes Notes: General Appearance: Well nourished, alert, cooperative, no acute distress, no obvious discomfort. Vitals: reviewed, See vital signs table. Head: no swelling or tenderness to the head Eyes: PERRL, EOMI, Conjuctiva clear Mouth: No decreasd moisture Lungs: No wheezing, No rales, No rhonci, No accessory muscle use, good air exchange bilaterally. Heart: Normal rate, rhythm is regular but he occasionally has a quick beat and a pause. Sounds consistent with PACs., No murmur, no rub Abdomen: Normal BS, soft, No rigidity, No abdominal tenderness, No guarding, no rebound, no abdominal masses, no organomegaly Extremities: strength 5/5 in all extremities, good pulses in all extremities, patient has severe pain whenever I go to move his right shoulder or if he goes to sit up. His strength in the hand. Good distal sensation. Skin: warm, dry, appropriate color, no rash Neuro: speech clear, oriented x 3, normal affect, responds appropriately to questions. Course - Re-evaluation Re-evalutation: 10/30/16 00:57 After Toradol patient's pain is much improved. He he looks and feels improved. 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 I will refer him to cardiology for further workup. His heart score is 2. I do not feel that he needs admission. He has no chest pain. All the pain he has is actually in his right shoulder and radiates from his neck from his previous neck surgery and his pain is been ongoing for many months. At this time we will discharge him home. I encouraged follow-up cardiology in regards to his PVCs. I encouraged him return to ER if he starts having anterior chest pain, difficulty breathing, or feels that he is worsening in any way. I encouraged him to follow-up with his doctor at the CT for the results of his MRI. Patient agrees with plan and will be discharged home. Dictation of this chart was performed using voice recognition software; therefore, there may be some unintended grammatical errors. - Vital Signs Vital signs: Temp Pulse Resp BP Pulse Ox 98.9 F 84 16 131/94 H 94 10/29/16 21:25 10/30/16 02:05 10/30/16 01:01 10/30/16 02:05 10/30/16 01:01 - Laboratory Result Diagrams: 10/29/16 22:05 10/29/16 22:05 Laboratory results interpreted by me: 10/29/16 22:05 RDW 14.3 H Discharge - Discharge Clinical Impression: PVC (premature ventricular contraction) Shoulder pain, right Qualifiers: Chronicity: chronic Qualified Code(s): M25.511 - Pain in right shoulder Condition: Good Disposition: HOME, SELF-CARE Additional Instructions: Please follow up with Dr. Michelle, clock repair technician, for further workup of your PVCs. Please return to the ER immediately if you have chest pain, difficulty breathing , or feel that your palpitations are worsening. Please follow up with your Dr. From the CT for the results of your MRI. Prescriptions: Ketorolac Tromethamine [Toradol 10 mg Tablet] 10 mg PO Q8HP PRN #15 tablet PRN Reason: Gabapentin 300 mg PO TID #30 capsule Forms: Return to Work Referrals: CHANI KATZ MD [Primary Care Provider] - Follow up as needed USHA MICHELLE MD [ACTIVE STAFF] - Follow up in 3-5 days
[2016-10-29 22:44] LABS: ALANINE AMINOTRANSFERASE 42 U/L (21-72); ALBUMIN 4.4 g/dL (3.5-5.0); ALKALINE PHOSPHATASE 84 U/L (38-126); ANION GAP 12 (5-19); ASPARTATE AMINO TRANSFERASE 30 U/L (17-59); BILIRUBIN,DIRECT 0.4 mg/dL (0.0-0.4); BILIRUBIN,TOTAL 0.5 mg/dL (0.2-1.3); BLOOD UREA NITROGEN 16 mg/dL (7-20); CALCIUM 9.8 mg/dL (8.4-10.2); CARBON DIOXIDE 26 mmol/L (22-30); CHLORIDE 102 mmol/L (98-107); CREATINE KINASE 76 U/L (55-170); GLUCOSE 107 mg/dL (75-110); POTASSIUM 4.2 mmol/L (3.6-5.0); SODIUM 140.2 mmol/L (137-145); TOTAL PROTEIN 7.4 g/dL (6.3-8.2)
[2016-10-29 22:56] LABS: CREATINE KINASE MB 0.56 ng/mL (<4.55)
[2016-10-29 22:58] LABS: TROPONIN I < 0.012 ng/mL
[2016-10-30] MEDS ORDERED: KETOROLAC TROMETHAMINE INJ/PF 30 MG/1 ML SDV IV ONE (00:09)
[2016-10-30 02:05] VITALS: BP 131/94
--- NOTE | 2016-10-30 07:24 | EKG REPORT ---
SEVERITY:- NORMAL ECG - SINUS RHYTHM : Confirmed by: Kirk Moreno MD 30-Oct-2016 07:23:46
== END 2016-10-30 02:05 | disposition home or self-care (01) ==
LOC: ER 21:18
DX: I49.3 Ventricular premature depolarization (principal); M25.511 Pain in right shoulder; G89.29 Other chronic pain; F17.200 Nicotine dependence, unspecified, uncomplicated; Z88.8 Allergy status to other drugs, medicaments and biological substances; Z88.2 Allergy status to sulfonamides; Z98.890 Other specified postprocedural states; I10 Essential (primary) hypertension
CPT/HCPCS: 93005; 99285; 96374; 36415; 82553; 82550; 83735; 85025; 80053; 84484; 71010; 93010; J1885

== ENCOUNTER 2017-02-18 03:10 | Emergency (ER) | payer OTHER, MEDICARE ==
[2017-02-18] MEDS ORDERED: LIDOCAINE 5% (700 MG) TRANSDERMAL ADH..PATCH TP ONE (06:40)
[2017-02-18] MEDS ORDERED: PREDNISONE 20 MG TABLET PO ONE (06:40)
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
--- NOTE | 2017-02-18 08:12 | EKG REPORT ---
SEVERITY:- ABNORMAL ECG - SINUS RHYTHM VENTRICULAR PREMATURE COMPLEX PROBABLE LEFT ATRIAL ABNORMALITY INCOMPLETE RIGHT BUNDLE BRANCH BLOCK : Confirmed by: Kirk Moreno MD 18-Feb-2017 08:11:55
--- NOTE | 2017-02-18 08:27 | RADIOLOGY REPORT (SQ) ---
EXAM DESCRIPTION: FOOT LEFT COMPLETE COMPLETED DATE/TIME: 02/18/2017 7:06 am REASON FOR STUDY: left foot pain COMPARISON: None. NUMBER OF VIEWS: Three views. TECHNIQUE: AP, lateral and oblique radiographic images acquired of the left foot. LIMITATIONS: None. FINDINGS: MINERALIZATION: Normal. BONES: No acute fracture or dislocation. No worrisome bone lesions. JOINTS: No effusions. SOFT TISSUES: No soft tissue swelling. No foreign body. OTHER: No other significant finding. IMPRESSION: NEGATIVE STUDY OF THE LEFT FOOT. NO RADIOGRAPHIC EVIDENCE OF ACUTE INJURY. TECHNICAL DOCUMENTATION: JOB ID: [id number] [employer]- All Rights Reserved
--- NOTE | 2017-02-18 08:29 | RADIOLOGY REPORT (SQ) ---
EXAM DESCRIPTION: SHOULDER RIGHT 2 OR MORE VIEWS COMPLETED DATE/TIME: 02/18/2017 7:06 am REASON FOR STUDY: right ankle pain COMPARISON: None. NUMBER OF VIEWS: Three views. TECHNIQUE: Internal rotation, external rotation, and Y view images acquired of the right shoulder. LIMITATIONS: None. FINDINGS: MINERALIZATION: Normal. BONES: No acute fracture or dislocation. No worrisome bone lesions. JOINTS: No glenohumeral dislocation. Acromioclavicular joint space narrowing and bony spurring. VISUALIZED LUNGS AND RIBS: No pneumothorax. No rib fracture. SOFT TISSUES: No radiopaque foreign body. OTHER: Lower cervical fusion hardware IMPRESSION: No acute changes TECHNICAL DOCUMENTATION: JOB ID: [id number] [email or web address]- All Rights Reserved
[2017-02-18 09:19] VITALS: BP 143/97
== END 2017-02-18 09:23 | disposition home or self-care (01) ==
LOC: ER 03:10
DX: M25.511 Pain in right shoulder (principal); M79.672 Pain in left foot; I25.10 Atherosclerotic heart disease of native coronary artery without angina pectoris; E78.00 Pure hypercholesterolemia, unspecified; I10 Essential (primary) hypertension; I25.2 Old myocardial infarction; Z88.2 Allergy status to sulfonamides
CPT/HCPCS: 93005; 99284; 73630; 73030; 93010; J7512

== ENCOUNTER 2017-11-22 15:19 | Emergency (ER) | payer OTHER, MEDICARE ==
[2017-11-22] MEDS ORDERED: ASPIRIN 81 MG TABLET, CHEWABLE PO ONE (16:05)
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
[2017-11-22 16:17] LABS: ABSOLUTE BASOPHILS # (AUTO) 0.1 10^3/uL (0.0-0.2); ABSOLUTE EOSINOPHILS # (AUTO) 0.2 10^3/uL (0.0-0.6); ABSOLUTE LYMPHOCYTES (AUTO) 2.7 10^3/uL (0.5-4.7); ABSOLUTE MONOCYTES (AUTO) 1.1 10^3/uL (0.1-1.4); ABSOLUTE NEUT (AUTO) 7.2 10^3/uL (1.7-8.2); BASOPHILS % (AUTO) 0.7 % (0-2); HEMATOCRIT 46.5 % (37.9-51.0); MEAN CORPUSCULAR HGB CONC 34.4 g/dL (32.0-36.0); MEAN CORPUSCULAR VOLUME 93 fl (80-97); PLATELET COUNT 246 10^3/uL (150-450); RED BLOOD COUNT 5.01 10^6/uL (4.35-5.55); RED CELL DISTRIBUTION WIDTH 13.6 % (11.5-14.0); SEGMENTED NEUTROPHILS % (AUTO) 63.3 % (42-78); TOTAL CELLS COUNTED % (AUTO) 100 %; WHITE BLOOD COUNT 11.4 10^3/uL (4.0-10.5)
[2017-11-22 16:37] LABS: ALANINE AMINOTRANSFERASE 40 U/L (21-72); ALBUMIN 4.3 g/dL (3.5-5.0); ALKALINE PHOSPHATASE 76 U/L (38-126); ANION GAP 12 (5-19); ASPARTATE AMINO TRANSFERASE 26 U/L (17-59); BILIRUBIN,DIRECT 0.3 mg/dL (0.0-0.4); BILIRUBIN,TOTAL 0.5 mg/dL (0.2-1.3); BLOOD UREA NITROGEN 13 mg/dL (7-20); CALCIUM 9.7 mg/dL (8.4-10.2); CARBON DIOXIDE 26 mmol/L (22-30); CHLORIDE 100 mmol/L (98-107); CREATINE KINASE 42 U/L (55-170); GLUCOSE 133 mg/dL (75-110); POTASSIUM 4.4 mmol/L (3.6-5.0); SODIUM 138.2 mmol/L (137-145); TOTAL PROTEIN 7.4 g/dL (6.3-8.2)
--- NOTE | 2017-11-22 16:42 | RADIOLOGY REPORT (SQ) ---
EXAM DESCRIPTION: CHEST SINGLE VIEW COMPLETED DATE/TIME: 11/22/2017 4:32 pm REASON FOR STUDY: chest pain COMPARISON: 10/29/2016 EXAM PARAMETERS: NUMBER OF VIEWS: One view. TECHNIQUE: Single frontal radiographic view of the chest acquired. RADIATION DOSE: NA LIMITATIONS: None. FINDINGS: LUNGS AND PLEURA: No opacities, masses or pneumothorax. No pleural effusion. MEDIASTINUM AND HILAR STRUCTURES: No masses. Contour normal. HEART AND VASCULAR STRUCTURES: Heart normal in size. Normal vasculature. BONES: No acute findings. HARDWARE: None in the chest. OTHER: Hardware anterior fusion visualized lower cervical spine. IMPRESSION: 1. No significant interval changes since the prior examination dated 10/29/2016. No acu te findings. TECHNICAL DOCUMENTATION: JOB ID: [id number] [employer]- All Rights Reserved Reading location - IP/workstation name: [email or web address]
[2017-11-22 16:49] LABS: CREATINE KINASE MB 0.33 ng/mL (<4.55)
[2017-11-22 16:51] LABS: TROPONIN I < 0.012 ng/mL
--- NOTE | 2017-11-22 17:43 | EKG REPORT ---
SEVERITY:- OTHERWISE NORMAL ECG - SINUS RHYTHM VENTRICULAR PREMATURE COMPLEX BORDERLINE RIGHT AXIS DEVIATION : Confirmed by: Kirk Moreno MD 22-Nov-2017 17:42:26
[2017-11-22] MEDS ORDERED: DEXAMETHASONE SOD PHOS INJ 10 MG/1 ML VIAL IV ONE (18:36)
[2017-11-22] MEDS ORDERED: KETOROLAC TROMETHAMINE INJ/PF 30 MG/1 ML SDV IV ONE (18:36)
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
[2017-11-22 22:40] VITALS: BP 130/97
== END 2017-11-22 22:50 | disposition home or self-care (01) ==
LOC: ER 15:19
DX: R00.2 Palpitations (principal); I49.3 Ventricular premature depolarization; G89.29 Other chronic pain; M25.511 Pain in right shoulder; I10 Essential (primary) hypertension; F17.200 Nicotine dependence, unspecified, uncomplicated; R06.02 Shortness of breath; I25.10 Atherosclerotic heart disease of native coronary artery without angina pectoris; I25.2 Old myocardial infarction
CPT/HCPCS: 93005; 99285; 96374; 96375; 36415; 82553; 82550; 85025; 80053; 84484; 71045; 93010; J1885; J1100

== ENCOUNTER 2018-02-18 14:11 | Emergency (ER) | payer OTHER, MEDICARE ==
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
[2018-02-18 17:44] LABS: ABSOLUTE MONOCYTES (AUTO) 0.2 10^3/uL (0.1-1.4); ABSOLUTE NEUT (AUTO) 11.5 10^3/uL (1.7-8.2); BASOPHILS % (AUTO) 0.3 % (0-2); EOSINOPHILS % (AUTO) 0.3 % (0-6); HEMATOCRIT 46.4 % (37.9-51.0); HEMOGLOBIN 15.6 g/dL (13.5-17.0); MEAN CORPUSCULAR HEMOGLOBIN 30.7 pg (27.0-33.4); MEAN CORPUSCULAR HGB CONC 33.6 g/dL (32.0-36.0); MEAN CORPUSCULAR VOLUME 91 fl (80-97); MONOCYTES % (AUTO) 1.6 % (3-13); PLATELET COUNT 257 10^3/uL (150-450); RED BLOOD COUNT 5.08 10^6/uL (4.35-5.55); RED CELL DISTRIBUTION WIDTH 14.7 % (11.5-14.0); SEGMENTED NEUTROPHILS % (AUTO) 89.8 % (42-78); TOTAL CELLS COUNTED % (AUTO) 100 %; WHITE BLOOD COUNT 12.8 10^3/uL (4.0-10.5)
[2018-02-18 17:57] LABS: ANION GAP 11 (5-19); BLOOD UREA NITROGEN 14 mg/dL (7-20); CALCIUM 10.1 mg/dL (8.4-10.2); CARBON DIOXIDE 27 mmol/L (22-30); CHLORIDE 100 mmol/L (98-107); GLUCOSE 147 mg/dL (75-110); POTASSIUM 4.5 mmol/L (3.6-5.0); SODIUM 137.5 mmol/L (137-145)
[2018-02-18] MEDS ORDERED: LIDOCAINE 2% VISCOUS SOLN 20 ML UDCUP PO ONE (18:29)
[2018-02-18] MEDS ORDERED: METOCLOPRAMIDE HCL ORAL SOLN 10 MG/10 ML UDCUP PO ONE (18:29)
[2018-02-18] MEDS ORDERED: MAG HYDROX/AL HYDROX/SIMETH SUSP 30 ML UDCUP PO ONE (18:29)
--- NOTE | 2018-02-18 19:51 | RADIOLOGY REPORT (SQ) ---
EXAM DESCRIPTION: CT SOFT TISSUE NECK WITH COMPLETED DATE/TIME: 02/18/2018 7:31 pm REASON FOR STUDY: sore throat, abscess COMPARISON: 07/06/2016 TECHNIQUE: Post IV contrasted scanning from skull base through lung apices with review of bone, soft tissue and lung windows. Reconstructed coronal and sagittal MPR images reviewed. All images stored on PACS. All CT scanners at this facility use dose modulation, iterative reconstruction, and/or weight based d osing when appropriate to reduce radiation dose to as low as reasonably achievable (ALARA). [facility]: Dose Right [facility]: CareDose [facility]: Dose Right [facility]: Teradose 4D [facility]: SUPENTA CONTRAST TYPE AND DOSE: contrast/concentration: Isovue 350.00 mg/ml; Total Contrast Delivered: 75.0 ml; Total Saline Delivered: 40.8 ml RENAL FUNCTION: BUN 14 creatinine 0.72 RADIATION DOSE: CT Rad equipment meets quality standard of care and radiation dose reduction techniq ues were employed. CTDIvol: 17.3 mGy. DLP: 638 mGy-cm. . LIMITATIONS: None. FINDINGS: SKULL BASE: Intact. MAJOR SALIVARY GLANDS: There are some soft tissue nodular densities in the left parotid gland likely lymph nodes. LYMPHADENOPATHY: There appear to be some nodes in the left parotid gland. These are present on the p rior study. No other adenopathy is suggested. MUCOSAL MASSES OR ASYMMETRY: There is slight asymmetry in the left side of the pharynx. No abscess i s appreciated. LARYNX/CORDS: No abnormal findings. VASCULAR STRUCTURES: The major vessels are patent. LUNG APICES: Clear. BONES: Prior ACDF from C4 to C7. THYROID: Normal size. No masses. PARANASAL SINUSES: Clear. OTHER: No other significant finding. IMPRESSION: There is mild asymmetric soft tissue swelling in the left side of the pharynx. There is no evidence of peritonsillar abscess. TECHNICAL DOCUMENTATION: JOB ID: [id number] Quality ID # [id number]: Final reports with documentation of one or more dose reduction techniques (e.g., Au tomated exposure control, adjustment of the mA and/or kV according to patient size, use of iterative reconstruction technique) 2010 [employer]- All Rights Reserved Reading location - IP/workstation name: [email or web address]
--- NOTE | 2018-02-18 20:09 | ER Document Report ---
ED General - General Chief Complaint: Sore Throat Stated Complaint: SORE THROAT, SWELLING Time Seen by Provider: 02/18/18 15:42 Mode of Arrival: Ambulatory Information source: Patient, [facility] Records Notes: Patient is a 57-year-old male that presents to the emergency department for chief complaint of sore throat. Patient had recent rotator cuff surgery on his right shoulder. He has had increased pain and swelling in his throat. The left is greater than the right. He was referred [place] the [place] today for evaluation of possible peritonsillar abscess. Patient has taken meloxicam and Percocet today and denies needing any other medication for pain. He did receive 125 mg of Solu-Medrol prior to coming to the ED from the [place] which she reports has not changed his symptoms. Patient denies any fever, chills, inability to swallow though he reports painful swallowing. Patient admits to pain with turning of his neck but then also reports a fusion due to chronic neck pain. TRAVEL OUTSIDE OF THE [place] IN LAST 30 DAYS: No - HPI Onset: Last week Onset/Duration: Gradual, Persistent Quality of pain: Achy Severity: Mild Associated symptoms: Sore throat, Other - Painful swallowing. denies: Chest pain, Hoarseness, Shortness of breath Exacerbated by: Food Relieved by: Denies Similar symptoms previously: No Recently seen / treated by doctor: No - Related Data Allergies/Adverse Reactions: Sulfa (Sulfonamide Antibiotics) Allergy (Verified 10/29/16 21:24) Past Medical History - General Information source: Patient, [facility] Records - Social History Smoking Status: Current Every Day Smoker Cigarette use (# per day): Yes - 10 Chew tobacco use (# tins/day): No Smoking Education Provided: Yes - Smoking cessation counseling was provided for 4 minutes at the bedside Drug Abuse: None Lives with: Family Family History: Reviewed & Not Pertinent Patient has suicidal ideation: No Patient has homicidal ideation: No - Past Medical History Cardiac Medical History: Reports: Hx Coronary Artery Disease, Hx Heart Attack, Hx Hypercholesterolemia, Hx Hypertension Denies: Hx Congestive Heart Failure, Hx DVT, Hx Pulmonary Embolism Pulmonary Medical History: Reports: Hx Sleep Apnea Denies: Hx Asthma, Hx COPD Neurological Medical History: Denies: Hx Seizures Endocrine Medical History: Reports: Hx Diabetes Mellitus Type 2 - "borderline". Denies: Hx Diabetes Mellitus Type 1, Hx Hyperthyroidism, Hx Hypothyroidism Renal/ Medical History: Denies: Hx Peritoneal Dialysis GI Medical History: Reports: Hx Gastroesophageal Reflux Disease, Hx Colonoscopy. Denies: Hx Cirrhosis, Hx Hepatitis Musculoskeletal Medical History: Reports Hx Arthritis, Reports Hx Muscle Spasm Skin Medical History: Denies Hx Eczema, Denies Hx Psoriasis Psychiatric Medical History: Reports: Hx Depression Infectious Medical History: Denies: Hx Hepatitis Past Surgical History: Reports: Hx Orthopedic Surgery - Left total knee replacement. C3-C4 and C4- C5 ACF. - Immunizations Hx Diphtheria, Pertussis, Tetanus Vaccination: Yes Review of Systems - Review of Systems Notes: REVIEW OF SYSTEMS: CONSTITUTIONAL : Denies fever, chills, or sweats. Denies recent illness. Denies weight loss, recent hospitalizations. EENT: Denies visual changes, eye pain. Denies oral lesions, difficulty swallowing. CARDIOVASCULAR: Denies chest pain. Denies palpitations. Denies lower extremity edema. RESPIRATORY: Denies cough. Denies shortness of breath, wheezing. GASTROINTESTINAL: Denies abdominal pain or distention. Denies nausea, vomiting, or diarrhea. Denies blood in vomitus, stools, or per rectum. Denies black, tarry stools. Denies constipation. GENITOURINARY: Denies difficulty urinating, painful urination, frequency, blood in urine, testicular pain or penile discharge. MUSCULOSKELETAL: Denies back or neck pain or stiffness. Denies joint pain or swelling. SKIN: Denies rash, lesions or sores. HEMATOLOGIC : Denies easy bruising or bleeding. LYMPHATIC: Denies swollen glands. NEUROLOGICAL: Denies confusion or altered mental status. Denies loss of consciousness. Denies dizziness or lightheadedness. Denies headache. Denies weakness or paralysis. Denies problems difficulty with ambulation, slurred speech. Denies sensory loss, numbness, or tingling. Denies seizures. PSYCHIATRIC: Denies anxiety or stress. Denies depression, suicidal ideation, or Physical Exam - Vital signs Vitals: Temp Pulse Resp BP Pulse Ox 98.2 F 76 16 151/89 H 96 02/18/18 14:17 02/18/18 14:17 02/18/18 14:17 02/18/18 14:17 02/18/18 14:17 - Notes Notes: PHYSICAL EXAMINATION: GENERAL: Well-appearing, well-nourished and in no acute distress. HEAD: Atraumatic, normocephalic. EYES: Pupils equal round and reactive to light, extraocular movements intact, sclera anicteric, conjunctiva are normal. ENT: Nares patent, oropharynx clear without exudates. Moist mucous membranes. Airway patent. No stridor.. NECK: Normal range of motion, supple without lymphadenopathy. Horizontal loreto gical scar anterior cervical spine clean dry and intact. No meningismus, no nuchal rigidity. LUNGS: Breath sounds clear to auscultation bilaterally and equal. No wheezes rales or rhonchi. No respiratory distress, accessory muscle use HEART: Regular rate and rhythm without murmurs ABDOMEN: Soft, nontender, nondistended abdomen. No guarding, no rebound. No masses appreciated. Musculoskeletal: Normal range of motion, no pitting or edema. No cyanosis. NEUROLOGICAL: Cranial nerves grossly intact. Normal speech, normal gait. Normal sensory, motor exams PSYCH: Normal mood, normal affect. SKIN: Warm, Dry, normal turgor, no rashes or lesions noted. Course - Re-evaluation Re-evalutation: 02/19/18 02:[address] 02/18/18 15:42 IMPRESSION: There is mild asymmetric soft tissue swelling in the left side of the pharynx. There is no evidence of peritonsillar abscess. Laboratory 02/18/18 02/18/18 17:31 17:31 WBC 12.8 H RBC 5.08 Hgb 15.6 Hct 46.4 MCV 91 MCH 30.7 MCHC 33.6 RDW 14.7 H Plt Count 257 Seg Neutrophils % 89.8 H Lymphocytes % 8.0 L Monocytes % 1.6 L Eosinophils % 0.3 Basophils % 0.3 Absolute Neutrophils 11.5 H Absolute Lymphocytes 1.0 Absolute Monocytes 0.2 Absolute Eosinophils 0.0 Absolute Basophils 0.0 Sodium 137.5 Potassium 4.5 Chloride 100 Carbon Dioxide 27 Anion Gap 11 BUN 14 Creatinine 0.72 Est GFR ( Amer) > 60 Est GFR (Non-Af Amer) > 60 Glucose 147 H Calcium 10.1 Temp Pulse Resp BP Pulse Ox 98.1 F 70 16 149/82 H 97 02/18/18 20:42 02/18/18 20:42 02/18/18 20:42 02/18/18 20:42 02/18/18 20:42 56-year-old male who underwent recent intubation first shoulder surgery presents with complaint of sore throat, painful swallowing. Vital signs reviewed and within normal limits upon arrival. Patient does not appear toxic or dehydrated. He is in no acute distress. Patient has no evidence of peritonsillar abscess, retropharyngeal abscess. Exam was without stridor, tachypnea, dyspnea. CT of the neck was obtained and showed no evidence of abscess, phlegmon. It did show some soft tissue swelling. Patient is tolerating oral fluids. States he already received a steroid shot prior to coming to the emergency department. He did get a GI cocktail which does report helped improve his sensation of something caught in his throat. I did advise the patient to return with any concerns especially difficulty swallowing, fever. At this time there is no abscess but I did advise him that it could form. Patient was discharged home in stable condition with recommendations to follow-up with his primary care physician. Dictation on this chart was performed using voice recognition software and may result in unintended grammatical, spelling, syntax or errors. - Vital Signs Vital signs: Temp Pulse Resp BP Pulse Ox 98.1 F 70 16 149/82 H 97 02/18/18 20:42 02/18/18 20:42 02/18/18 20:42 02/18/18 20:42 02/18/18 20:42 - Laboratory Result Diagrams: 02/18/18 17:31 02/18/18 17:31 Laboratory results interpreted by me: 02/18/18 02/18/18 17:31 17:31 WBC 12.8 H RDW 14.7 H Seg Neutrophils % 89.8 H Lymphocytes % 8.0 L Monocytes % 1.6 L Absolute Neutrophils 11.5 H Glucose 147 H - Diagnostic Test Radiology reviewed: Image reviewed, Reports reviewed Discharge - Discharge Clinical Impression: Pharyngitis Qualifiers: Pharyngitis/tonsillitis etiology: unspecified etiology Qualified Code(s): J02.9 - Acute pharyngitis, unspecified HTN (hypertension) Qualifiers: Hypertension type: unspecified Qualified Code(s): I10 - Essential (primary) hypertension Hyperglycemia due to type 2 diabetes mellitus Qualifiers: Diabetes mellitus rn long term care insulin use: without mcc use Qualified Code(s): E11.65 - Type 2 diabetes mellitus with hyperglycemia Condition: Good Disposition: HOME, SELF-CARE Instructions: Sore Throat ([facility]) Additional Instructions: Follow up with your [id number] hours for further care or return to the ED IMMEDIATELY if symptoms worsen or you have any concerns. If you cannot afford to follow up with your primary care physician a list of low cost clinics have been provided at the end of your discharge papers as well. Most prescribed medications have multiple side effects. The safest thing to do is when filling your prescription speak to your pharmacist regarding possible interactions with your normal home medications and over the counter medications such as Ibuprofen, Tylenol, Benadryl. If you experience any symptoms that cause you discomfort or concern you should discontinue the medication immediately and return to the emergency room or call your primary care physician. Forms: Elevated Blood Pressure, Smoking Cessation Education Referrals: [facility] [Primary Care Provider] - Follow up in 3-5 days
[2018-02-18 20:43] VITALS: BP 149/82
== END 2018-02-18 20:43 | disposition home or self-care (01) ==
LOC: ER 14:11
DX: J02.9 Acute pharyngitis, unspecified (principal); F17.210 Nicotine dependence, cigarettes, uncomplicated; E11.65 Type 2 diabetes mellitus with hyperglycemia; I25.10 Atherosclerotic heart disease of native coronary artery without angina pectoris; I25.2 Old myocardial infarction; E78.00 Pure hypercholesterolemia, unspecified; I10 Essential (primary) hypertension; K21.9 Gastro-esophageal reflux disease without esophagitis; Z96.652 Presence of left artificial knee joint
CPT/HCPCS: 99406; 99284; 36415; 85025; 80048; 70491; J3490

== ENCOUNTER 2018-03-28 14:12 | Emergency (ER) | payer OTHER, MEDICARE ==
[2018-03-28] MEDS ORDERED: CEFAZOLIN 2 GM/D5W RTU 2 GM/50 ML RTUPB IV ONE (17:01)
[2018-03-28] MEDS ORDERED: ONDANSETRON HCL INJ/PF 4 MG/2 ML SDV IV ONE (17:01)
[2018-03-28] MEDS ORDERED: HYDROMORPHONE HCL INJ/PF 2 MG/ML AMPULE IV ONE (17:01)
--- NOTE | 2018-03-28 17:03 | ER Document Report ---
ED Medical Screen (RME) - General Chief Complaint: Post Surgical Pain Stated Complaint: RIGHT SHOULDER PAIN, REDNESS Time Seen by Provider: 03/28/18 16:49 Primary Care Provider: [facility] [Primary Care Provider] - Follow up as needed Notes: Patient is a 57-year-old male that presents to the emergency department for chief complaint of right shoulder swelling and pain. Patient had right rotator cuff surgery on 14 February, recently he was in physical therapy noticed swelling and redness along 1 of the incisional scars. It is seemingly getting worse, and he has become concerned about this as a possible infection so he decided come to the emergency department. His surgery was performed in [place] on the [facility] base with Dr. Bah. ROS: Other than noted above, the 12 point review of systems was reviewed with the patient and were negative, all pertinent findings are included in the HPI. PHYSICAL EXAMINATION: Vital signs reviewed. GENERAL: Well-appearing, well-nourished and in no acute distress. HEAD: Atraumatic, normocephalic. EYES: Pupils equal round extraocular movements intact, conjunctiva are normal. ENT: Nares patent NECK: Normal range of motion CV: Heart regular rate and rhythm LUNGS: No respiratory distress Musculoskeletal: Right shoulder, is an area of erythema and induration and swelling of the most proximal incisional scar from his arthroscopic surgery, there is tenderness to palpation and warmth to palpation. NEUROLOGICAL: Normal speech PSYCH: Normal mood, normal affect. MDM: Patient seen and examined for rapid initial assessment. Vital signs reviewed. A comprehensive ED assessment and evaluation of the patient, analysis of test results and completion of the medical decision making process will be conducted by additional ED providers. *Note is created using voice recognition software and may contain spelling, syntax or grammatical errors. TRAVEL OUTSIDE OF THE [place] IN LAST 30 DAYS: No - Related Data Allergies/Adverse Reactions: Sulfa (Sulfonamide Antibiotics) Allergy (Verified 03/28/18 14:20) Past Medical History - Social History Frequency of alcohol use: None Drug Abuse: None - Past Medical History Cardiac Medical History: Reports: Hx Coronary Artery Disease, Hx Heart Attack, Hx Hypercholesterolemia, Hx Hypertension Denies: Hx Congestive Heart Failure, Hx DVT, Hx Pulmonary Embolism Pulmonary Medical History: Reports: Hx Sleep Apnea Denies: Hx Asthma, Hx COPD Neurological Medical History: Denies: Hx Seizures Endocrine Medical History: Reports: Hx Diabetes Mellitus Type 2 - "borderline". Denies: Hx Diabetes Mellitus Type 1, Hx Hyperthyroidism, Hx Hypothyroidism Renal/ Medical History: Denies: Hx Peritoneal Dialysis GI Medical History: Reports: Hx Gastroesophageal Reflux Disease, Hx Colonoscopy. Denies: Hx Cirrhosis, Hx Hepatitis Musculoskeltal Medical History: Reports Hx Arthritis, Reports Hx Muscle Spasm Skin Medical History: Denies Hx Eczema, Denies Hx Psoriasis Psychiatric Medical History: Reports: Hx Depression Infectious Medical History: Denies: Hx Hepatitis Past Surgical History: Reports: Hx Orthopedic Surgery - Left total knee replacement. C3-C4 and C4- C5 ACF. - Immunizations Hx Diphtheria, Pertussis, Tetanus Vaccination: Yes Physical Exam - Vital signs Vitals: Temp Pulse Resp BP Pulse Ox 98.5 F 78 16 129/89 H 95 03/28/18 14:54 03/28/18 14:54 03/28/18 14:54 03/28/18 14:54 03/28/18 14:54 Course - Vital Signs Vital signs: Temp Pulse Resp BP Pulse Ox 98.5 F 78 16 129/89 H 95 03/28/18 14:54 03/28/18 14:54 03/28/18 14:54 03/28/18 14:54 03/28/18 14:54 Doctor's Discharge - Discharge Referrals: [facility] [Primary Care [facility]] - Follow up as needed
--- NOTE | 2018-03-28 17:47 | RADIOLOGY REPORT (SQ) ---
EXAM DESCRIPTION: SHOULDER RIGHT 2 OR MORE VIEWS COMPLETED DATE/TIME: 03/28/2018 5:34 pm REASON FOR STUDY: recent surgery, erythema, swelling of shoulder COMPARISON: 02/18/2017 NUMBER OF VIEWS: Three views. TECHNIQUE: Internal rotation, external rotation, and Y view images acquired of the right shoulder. LIMITATIONS: None. FINDINGS: MINERALIZATION: Normal. BONES: Interval widening of the AC joint. No obvious erosions. JOINTS: No dislocation. VISUALIZED LUNGS AND RIBS: Calcification along the insertion of the rotator cuff. SOFT TISSUES: No radiopaque foreign body. OTHER: No other significant finding. IMPRESSION: No evidence for osteomyelitis on plain radiographs. There is widening of the AC joint without definitive erosions. Could be related to fluid. Calcific tendinitis. TECHNICAL DOCUMENTATION: JOB ID: [id number] [employer]- All Rights Reserved Reading location - IP/workstation name: [email or web address]
[2018-03-28 18:29] LABS: ABSOLUTE EOSINOPHILS # (AUTO) 0.2 10^3/uL (0.0-0.6); ABSOLUTE LYMPHOCYTES (AUTO) 2.5 10^3/uL (0.5-4.7); ABSOLUTE MONOCYTES (AUTO) 0.9 10^3/uL (0.1-1.4); ABSOLUTE NEUT (AUTO) 5.5 10^3/uL (1.7-8.2); BASOPHILS % (AUTO) 0.4 % (0-2); EOSINOPHILS % (AUTO) 1.8 % (0-6); HEMATOCRIT 46.4 % (37.9-51.0); HEMOGLOBIN 15.9 g/dL (13.5-17.0); LYMPHOCYTES % (AUTO) 27.1 % (13-45); MEAN CORPUSCULAR HEMOGLOBIN 31.4 pg (27.0-33.4); MEAN CORPUSCULAR HGB CONC 34.3 g/dL (32.0-36.0); MEAN CORPUSCULAR VOLUME 92 fl (80-97); MONOCYTES % (AUTO) 10.2 % (3-13); PLATELET COUNT 245 10^3/uL (150-450); RED BLOOD COUNT 5.07 10^6/uL (4.35-5.55); RED CELL DISTRIBUTION WIDTH 13.7 % (11.5-14.0); SEGMENTED NEUTROPHILS % (AUTO) 60.5 % (42-78); TOTAL CELLS COUNTED % (AUTO) 100 %; WHITE BLOOD COUNT 9.2 10^3/uL (4.0-10.5)
[2018-03-28 18:52] LABS: ALANINE AMINOTRANSFERASE 33 U/L (21-72); ALBUMIN 4.6 g/dL (3.5-5.0); ALKALINE PHOSPHATASE 77 U/L (38-126); ANION GAP 12 (5-19); ASPARTATE AMINO TRANSFERASE 25 U/L (17-59); BILIRUBIN,DIRECT 0.3 mg/dL (0.0-0.4); BILIRUBIN,TOTAL 0.5 mg/dL (0.2-1.3); BLOOD UREA NITROGEN 15 mg/dL (7-20); C-REACTIVE PROTEIN 18.4 mg/L (<10.0); CALCIUM 9.9 mg/dL (8.4-10.2); CARBON DIOXIDE 27 mmol/L (22-30); CHLORIDE 100 mmol/L (98-107); GLUCOSE 85 mg/dL (75-110); POTASSIUM 4.5 mmol/L (3.6-5.0); SODIUM 138.7 mmol/L (137-145); TOTAL PROTEIN 7.4 g/dL (6.3-8.2)
[2018-03-28 19:22] LABS: ERYTHROCYTE SEDIMENTATION RATE 24 mm/hr (0-20)
--- NOTE | 2018-03-28 22:31 | ER Document Report ---
ED General - General Chief Complaint: Post Surgical Pain Stated Complaint: RIGHT SHOULDER PAIN, REDNESS Time Seen by Provider: 03/28/18 16:49 Primary Care Provider: [facility] [[facility]] - Follow up as needed Notes: RME Provider note: Patient is a 57-year-old male that presents to the emergency department for chief complaint of right shoulder swelling and pain. Patient had right rotator cuff surgery on 14 February, recently he was in physical therapy noticed swelling and redness along 1 of the incisional scars. It is seemingly getting worse, and he has become concerned about this as a possible infection so he decided come to the emergency department. His surgery was performed in [place] on the [facility] base with Dr. Bah. MY HPI: Patient states he noticed the erythema on Wednesday. States it has been getting worse and his pain has increased which is why he presents to the emergency room. Patient states he ran out of his pain medication. Patient states he has not followed up with his orthopedic Dr. Bah since surgery. Patient states he has been going to PT though. Past medical history: Hypertension, hyperlipidemia Medications: Amlodipine, pravastatin Allergies: Sulfa TRAVEL OUTSIDE OF THE [place] IN LAST 30 DAYS: No - Related Data Allergies/Adverse Reactions: Sulfa (Sulfonamide Antibiotics) Allergy (Verified 03/28/18 14:20) Past Medical History - General Information source: Patient - Social History Smoking Status: Current Every Day Smoker Frequency of alcohol use: None Drug Abuse: None Family History: Reviewed & Not Pertinent Patient has suicidal ideation: No Patient has homicidal ideation: No - Past Medical History Cardiac Medical History: Reports: Hx Coronary Artery Disease, Hx Heart Attack, Hx Hypercholesterolemia, Hx Hypertension Denies: Hx Congestive Heart Failure, Hx DVT, Hx Pulmonary Embolism Pulmonary Medical History: Reports: Hx Sleep Apnea Denies: Hx Asthma, Hx COPD Neurological Medical History: Denies: Hx Seizures Endocrine Medical History: Reports: Hx Diabetes Mellitus Type 2 - "borderline". Denies: Hx Diabetes Mellitus Type 1, Hx Hyperthyroidism, Hx Hypothyroidism Renal/ Medical History: Denies: Hx Peritoneal Dialysis GI Medical History: Reports: Hx Gastroesophageal Reflux Disease, Hx Colonoscopy. Denies: Hx Cirrhosis, Hx Hepatitis Musculoskeletal Medical History: Reports Hx Arthritis, Reports Hx Muscle Spasm Skin Medical History: Denies Hx Eczema, Denies Hx Psoriasis Psychiatric Medical History: Reports: Hx Depression Infectious Medical History: Denies: Hx Hepatitis Past Surgical History: Reports: Hx Orthopedic Surgery - Left total knee replac ement. C3-C4 and C4- C5 ACF. - Immunizations Hx Diphtheria, Pertussis, Tetanus Vaccination: Yes Review of Systems - Review of Systems Constitutional: No symptoms reported. denies: Fever EENT: No symptoms reported Cardiovascular: No symptoms reported Respiratory: No symptoms reported Gastrointestinal: No symptoms reported Genitourinary: No symptoms reported Male Genitourinary: No symptoms reported Musculoskeletal: See HPI Skin: See HPI Hematologic/Lymphatic: No symptoms reported Neurological/Psychological: No symptoms reported Physical Exam - Vital signs Vitals: Temp Pulse Resp BP Pulse Ox 98.5 F 78 16 129/89 H 95 03/28/18 14:54 03/28/18 14:54 03/28/18 14:54 03/28/18 14:54 03/28/18 14:54 - Notes Notes: GENERAL: Alert, interacts well. No acute distress. HEAD: Normocephalic, atraumatic. EYES: Pupils equal, round, and reactive to light. Extraocular movements intact. ENT: Oral mucosa moist, tongue midline. NECK: Full range of motion. Supple. Trachea midline. LUNGS: Clear to auscultation bilaterally, no wheezes, rales, or rhonchi. No respiratory distress. HEART: Regular rate and rhythm. No murmur ABDOMEN: Soft, non-tender. Non-distended. Bowel sounds present in all 4 quadrants. EXTREMITIES: Moves all 4 extremities spontaneously. normal radial and dorsalis pedis pulses bilaterally. No cyanosis. Patient has a vertical scar noted over the right shoulder measuring approximately 5 cm. Well-healed. There does appear to be some erythema and minor swelling around the scar. No fluctuance or induration noted. Otherwise patient's right shoulder is non-erythematous, non- warm to touch. BACK: no cervical, thoracic, lumbar midline tenderness. No saddle anesthesia, normal distal neurovascular exam. NEUROLOGICAL: Alert and oriented x3. Normal speech. cranial nerves II through XII grossly intact PSYCH: Normal affect, normal mood. SKIN: Warm, dry, normal turgor. Course - Re-evaluation Re-evalutation: 03/28/18 22:27 Patient's labs show no signs of leukocytosis, no signs of anemia, no signs of electrolyte abnormalities. His ESR is 24 with a CRP of 18.4. His x-ray shows no signs of osteomyelitis. [facility] provider did give the patient 1 dose of ceftezole and IV. Discussed this case with orthopedic doctor Bronwyn Ponce who works at [employer], same group that Dr. Noah Bah works out. She states the patient is fine for discharge, close follow-up with Dr. Bah. Discussed covering him with oral antibiotics for a superficial cellulitis. Discussed case with patient who voices understanding that he needs to follow-up with Dr. Bah within the next 24-48 hours. Close return precautions discussed. - Vital Signs Vital signs: Temp Pulse Resp BP Pulse Ox 97.6 F 76 16 124/94 H 96 03/28/18 20:23 03/28/18 20:23 03/28/18 20:23 03/28/18 20:23 03/28/18 20:23 - Laboratory Result Diagrams: 03/28/18 17:55 03/28/18 17:55 Laboratory results interpreted by me: 03/28/18 03/28/18 17:55 17:55 ESR 24 H C-Reactive Protein 18.4 H Discharge - Discharge Clinical Impression: Cellulitis Qualifiers: Site of cellulitis: extremity Site of cellulitis of extremity: upper extremity Laterality: right Qualified Code(s): L03.113 - Cellulitis of right upper limb Condition: Stable Disposition: HOME, SELF-CARE Instructions: Cellulitis ([facility]) Additional Instructions: As we discussed you have been seen and treated in the emergency department for complications of her right shoulder surgery. I have spoken with an orthopedic doctor that works with the doctor that performed her surgery. She is recomm ending that you follow-up in their office in the next 24-48 hours. She is also recommending that I start her on oral antibiotics. Please take them as prescribed. Please immediately return to the emergency room should he have any other concerning symptoms to include increase in redness, pain, swelling to her right shoulder or generalized fever. Prescriptions: Cephalexin Monohydrate [Keflex 500 mg Capsule] 500 mg PO BID 7 Days #14 capsule Referrals: [facility] [[facility]] - Follow up as needed
[2018-03-28 22:50] VITALS: BP 122/74
== END 2018-03-28 22:50 | disposition home or self-care (01) ==
LOC: ER 14:12
DX: L03.113 Cellulitis of right upper limb (principal); M25.511 Pain in right shoulder; Z98.890 Other specified postprocedural states; F17.200 Nicotine dependence, unspecified, uncomplicated; I25.10 Atherosclerotic heart disease of native coronary artery without angina pectoris; I10 Essential (primary) hypertension; E78.5 Hyperlipidemia, unspecified; Z79.899 Other long term (current) drug therapy; Z88.2 Allergy status to sulfonamides
CPT/HCPCS: 99283; 96375; 96365; 36415; 87040; 85025; 85652; 86140; 80053; 73030; J1170; J2405; J0690

== ENCOUNTER 2018-07-09 12:37 | Observation (INO) | payer MEDICARE, OTHER ==
[2018-07-09] MEDS ORDERED: ASPIRIN 81 MG TABLET, CHEWABLE PO ONE (13:00)
--- NOTE | 2018-07-09 13:01 | ER Document Report ---
ED Medical Screen (RME) - General Chief Complaint: Chest Pain Stated Complaint: CHEST PAIN Time Seen by Provider: 07/09/18 13:00 Primary Care Provider: KALIN,SAMIR [Primary Care Provider] - Follow up as needed Mode of Arrival: Ambulatory Information source: Patient Notes: Patient presents complaining of chest discomfort for the past week and a half is been off and on. Patient does complain of palpitations shortness of breath and upper dental pain. Patient states he did have some swelling to his extremities although that has resolved today. Patient denies any cough nausea or vomiting. I have greeted and performed a rapid initial assessment of this patient. A comprehensive ED assessment and evaluation of the patient, analysis of test results and completion of the medical decision making process will be conducted by additional ED providers. TRAVEL OUTSIDE OF THE [place] IN LAST 30 DAYS: No - Related Data Allergies/Adverse Reactions: Sulfa (Sulfonamide Antibiotics) Allergy (Verified 03/28/18 14:20) Past Medical History - Past Medical History Cardiac Medical History: Reports: Hx Coronary Artery Disease, Hx Heart Attack, Hx Hypercholesterolemia, Hx Hypertension Denies: Hx Congestive Heart Failure, Hx DVT, Hx Pulmonary Embolism Pulmonary Medical History: Reports: Hx Sleep Apnea Denies: Hx Asthma, Hx COPD Neurological Medical History: Denies: Hx Seizures Endocrine Medical History: Reports: Hx Diabetes Mellitus Type 2 - "borderline". Denies: Hx Diabetes Mellitus Type 1, Hx Hyperthyroidism, Hx Hypothyroidism Renal/ Medical History: Denies: Hx Peritoneal Dialysis GI Medical History: Reports: Hx Gastroesophageal Reflux Disease, Hx Colonoscopy. Denies: Hx Cirrhosis, Hx Hepatitis Musculoskeltal Medical History: Reports Hx Arthritis, Reports Hx Muscle Spasm Skin Medical History: Denies Hx Eczema, Denies Hx Psoriasis Psychiatric Medical History: Reports: Hx Depression Infectious Medical History: Denies: Hx Hepatitis Past Surgical History: Reports: Hx Orthopedic Surgery - Left total knee replacement. C3-C4 and C4- C5 ACF. - Immunizations Hx Diphtheria, Pertussis, Tetanus Vaccination: Yes Physical Exam - Vital signs Vitals: Temp Pulse Resp BP Pulse Ox 98.2 F 74 16 116/82 94 07/09/18 12:55 07/09/18 12:55 07/09/18 12:55 07/09/18 12:55 07/09/18 12:55 - Cardiovascular Rhythm: Regular Heart sounds: S1 appreciated, S2 appreciated Course - Vital Signs Vital signs: Temp Pulse Resp BP Pulse Ox 98.2 F 74 16 116/82 94 07/09/18 12:55 07/09/18 12:55 07/09/18 12:55 07/09/18 12:55 07/09/18 12:55 Doctor's Discharge - Discharge Referrals: [facility] [[facility] - Follow up as needed
--- NOTE | 2018-07-09 13:38 | RADIOLOGY REPORT (SQ) ---
EXAM DESCRIPTION: CHEST 2 VIEWS COMPLETED DATE/TIME: 07/09/2018 1:29 pm REASON FOR STUDY: cp COMPARISON: 11/22/2017 and earlier EXAM PARAMETERS: NUMBER OF VIEWS: two views TECHNIQUE: Digital Frontal and Lateral radiographic views of the chest acquired. RADIATION DOSE: NA LIMITATIONS: none FINDINGS: LUNGS AND PLEURA: No opacities, masses or pneumothorax. No pleural effusion. MEDIASTINUM AND HILAR STRUCTURES: No masses or contour abnormalities. HEART AND VASCULAR STRUCTURES: Heart normal size. Central pulmonary vasculature is unchanged compare d to prior. BONES: No acute findings. HARDWARE: None in the chest. Incompletely visualized ACDF of the lower cervical spine. OTHER: No other significant finding. IMPRESSION: NO ACUTE RADIOGRAPHIC FINDING IN THE CHEST. TECHNICAL DOCUMENTATION: JOB ID: [id number] [employer]- All Rights Reserved Reading location - IP/workstation name: [email or web address]
[2018-07-09 14:39] LABS: ABSOLUTE BASOPHILS # (AUTO) 0.1 10^3/uL (0.0-0.2); ABSOLUTE EOSINOPHILS # (AUTO) 0.3 10^3/uL (0.0-0.6); ABSOLUTE LYMPHOCYTES (AUTO) 2.3 10^3/uL (0.5-4.7); ABSOLUTE MONOCYTES (AUTO) 0.8 10^3/uL (0.1-1.4); ABSOLUTE NEUT (AUTO) 5.7 10^3/uL (1.7-8.2); BASOPHILS % (AUTO) 0.6 % (0-2); EOSINOPHILS % (AUTO) 2.9 % (0-6); HEMOGLOBIN 15.8 g/dL (13.5-17.0); LYMPHOCYTES % (AUTO) 24.8 % (13-45); MEAN CORPUSCULAR HEMOGLOBIN 29.6 pg (27.0-33.4); MEAN CORPUSCULAR HGB CONC 33.7 g/dL (32.0-36.0); MEAN CORPUSCULAR VOLUME 88 fl (80-97); MONOCYTES % (AUTO) 8.8 % (3-13); PLATELET COUNT 234 10^3/uL (150-450); RED BLOOD COUNT 5.36 10^6/uL (4.35-5.55); RED CELL DISTRIBUTION WIDTH 14.2 % (11.5-14.0); SEGMENTED NEUTROPHILS % (AUTO) 62.9 % (42-78); TOTAL CELLS COUNTED % (AUTO) 100 %; WHITE BLOOD COUNT 9.1 10^3/uL (4.0-10.5)
[2018-07-09 14:58] LABS: ALANINE AMINOTRANSFERASE 31 U/L (21-72); ALBUMIN 4.4 g/dL (3.5-5.0); ALKALINE PHOSPHATASE 80 U/L (38-126); ANION GAP 11 (5-19); ASPARTATE AMINO TRANSFERASE 22 U/L (17-59); BILIRUBIN,DIRECT 0.4 mg/dL (0.0-0.4); BILIRUBIN,TOTAL 0.6 mg/dL (0.2-1.3); BLOOD UREA NITROGEN 13 mg/dL (7-20); CARBON DIOXIDE 27 mmol/L (22-30); CHLORIDE 101 mmol/L (98-107); CREATINE KINASE 77 U/L (55-170); GLUCOSE 100 mg/dL (75-110); LIPASE 68.8 U/L (23-300); POTASSIUM 4.5 mmol/L (3.6-5.0); SODIUM 138.9 mmol/L (137-145); TOTAL PROTEIN 7.3 g/dL (6.3-8.2)
[2018-07-09 15:10] LABS: NT PRO BNP 34 pg/mL (5-900)
[2018-07-09 15:12] LABS: TROPONIN I < 0.012 ng/mL
--- NOTE | 2018-07-09 16:11 | ER Document Report ---
ED Cardiac - General Chief Complaint: Chest Pain Stated Complaint: CHEST PAIN Time Seen by Provider: 07/09/18 13:00 Mode of Arrival: Ambulatory TRAVEL OUTSIDE OF THE [place] IN LAST 30 DAYS: No - HPI Notes: Patient is a 57-year-old male with a history of hypertension, high cholesterol, type 2 diabetes who presents to the emergency department with a chief complaint of intermittent chest pain that began 1.5 weeks ago. Patient states that he woke up in the middle the night complaining of a chest discomfort and states "it felt like my heart was going to rip out of my chest." Patient does report shortness of breath that is worse with ambulation and when bending over. Patient also complaint of intermittent palpitations and intermittent bilateral leg swelling. Patient notes that the swelling to his lower extremities is more present when he sits for long periods of time. States he did take 4 baby aspirin today. Patient states he has a history of an [place] 10 years ago in which she states having a cardiac cath and was told he had a 30% blockage. - Related Data Allergies/Adverse Reactions: Sulfa (Sulfonamide Antibiotics) Allergy (Verified 03/28/18 14:20) Past Medical History - General Information source: Patient - Social History Smoking Status: Current Every Day Smoker Cigarette use (# per day): Yes - 1 ppd Frequency of alcohol use: Occasional Drug Abuse: None Lives with: Alone Family History: Reviewed & Not Pertinent Patient has suicidal ideation: No Patient has homicidal ideation: No - Past Medical History Cardiac Medical History: Reports: Hx Coronary Artery Disease, Hx Heart Attack, Hx Hypercholesterolemia, Hx Hypertension Denies: Hx Congestive Heart Failure, Hx DVT, Hx Pulmonary Embolism Pulmonary Medical History: Reports: Hx Sleep Apnea Denies: Hx Asthma, Hx COPD EENT Medical History: Reports: None Neurological Medical History: Reports: None. Denies: Hx Seizures Endocrine Medical History: Reports: Hx Diabetes Mellitus Type 2 - "borderline". Denies: Hx Diabetes Mellitus Type 1, Hx Hyperthyroidism, Hx Hypothyroidism Renal/ Medical History: Reports: None. Denies: Hx Peritoneal Dialysis Malignancy Medical History: Reports None GI Medical History: Reports: Hx Gastroesophageal Reflux Disease, Hx Colonoscopy. Denies: Hx Cirrhosis, Hx Hepatitis Musculoskeletal Medical History: Reports Hx Arthritis, Reports Hx Muscle Spasm Skin Medical History: Reports None, Denies Hx Eczema, Denies Hx Psoriasis Psychiatric Medical History: Reports: Hx Depression Traumatic Medical History: Reports: None Infectious Medical History: Reports: None. Denies: Hx Hepatitis Past Surgical History: Reports: Hx Orthopedic Surgery - Left total knee replacement. C3-C4 and C4- C5 ACF. - Immunizations Hx Diphtheria, Pertussis, Tetanus Vaccination: Yes Review of Systems - Review of Systems Constitutional: No symptoms reported EENT: No symptoms reported Cardiovascular: See HPI Respiratory: See HPI Gastrointestinal: No symptoms reported Genitourinary: No symptoms reported Male Genitourinary: No symptoms reported Musculoskeletal: See HPI Skin: No symptoms reported Hematologic/Lymphatic: No symptoms reported Neurological/Psychological: No symptoms reported Physical Exam - Vital signs Vitals: Temp Pulse Resp BP Pulse Ox 98.2 F 74 16 116/82 94 07/09/18 12:55 07/09/18 12:55 07/09/18 12:55 07/09/18 12:55 07/09/18 12:55 Interpretation: Normal - Notes Notes: GENERAL: Well-appearing, well-nourished and in no acute distress. HEAD: Atraumatic, normocephalic. EYES: Pupils equal round and reactive to light, extraocular movements intact, sclera anicteric, conjunctiva are normal. ENT: Moist mucous membranes. NECK: Normal range of motion, supple without lymphadenopathy or JVD. LUNGS: Breath sounds clear to auscultation bilaterally and equal. No wheezes rales or rhonchi. HEART: Regular rate and rhythm without murmurs, rubs or gallops. No reproducible chest pain. ABDOMEN: Obese, round, Soft, nontender, normoactive bowel sounds. No guarding, no rebound. Reducible umbilical hernia and + diastasis recti. BACK: No cervical, thoracic, lumbar midline tenderness. No saddle anesthesia, normal distal neurovascular exam. GENITOURINARY: Deferred. EXTREMITIES: Normal range of motion, trace pitting edema +1 to bilateral lower extremities. No clubbing or cyanosis. NEUROLOGICAL: Cranial nerves II through XII grossly intact. Normal speech, normal gait. PSYCH: Normal mood, normal affect. SKIN: Warm, Dry, normal turgor, no rashes or lesions noted. Course - Re-evaluation Re-evalutation: 07/09/18 16:11 Initial evaluation of the patient reveals a pleasant male sitting upright on stretcher in no acute distress. Patient is currently denying chest pain. Patient states he did take 4 baby aspirin today. Patient's initial lab work was unremarkable including a negative troponin. Patient will have occasional PVC on monitor. Patient states that he has been told he has these in the past. From two previous visits it was noted that patient had PVC's that improved with right shoulder pain control. Patient reports that since then he has had right rotator cuff surgery and denies shoulder pain at this time. Patient heart score 4. 07/09/18 16:[address] North who will be down to speak with the patient. 16:34 Dr. North at bedside with patient. - Vital Signs Vital signs: Temp Pulse Resp BP Pulse Ox 97.4 F 72 17 116/83 94 07/09/18 18:33 07/09/18 18:53 07/09/18 18:01 07/09/18 18:01 07/09/18 18:01 - Laboratory Result Diagrams: 07/09/18 14:25 07/09/18 14:25 Laboratory results interpreted by me: 07/09/18 14:25 RDW 14.2 H - Diagnostic Test Radiology reviewed: Image reviewed, Reports reviewed - EKG Interpretation by Me Additional EKG results interpreted by me: 07/09/18 Patient's EKG shows a sinus rhythm with a rate of 78. Patient's WI interval is 180, QT 368, QTc is 420. EKG does show a PVC. There is no ST segment changes in consecutive leads or T wave inversions. Is no change from previous EKG. Discharge - Discharge Clinical Impression: Palpitations, PVCs (premature ventricular contractions) Chest pain Qualifiers: Chest pain type: precordial pain Qualified Code(s): R07.2 - Precordial pain Condition: Stable Disposition: ADMITTED OBSERVATION Admitting Provider: Mary Anne (Hospitalist) Unit Admitted: Telemetry
[2018-07-09] MEDS ORDERED: MAG HYDROX/AL HYDROX/SIMETH SUSP 30 ML UDCUP PO PRN (17:16)
[2018-07-09] MEDS ORDERED: PROMETHAZINE HCL 25 MG TABLET PO PRN (17:16)
[2018-07-09] MEDS ORDERED: MAGNESIUM HYDROXIDE SUSP 30 ML UDCUP PO PRN (17:16)
[2018-07-09] MEDS ORDERED: TEMAZEPAM 7.5 MG CAPSULE PO PRN (17:16)
[2018-07-09] MEDS ORDERED: ACETAMINOPHEN 325 MG TABLET PO PRN (17:16)
[2018-07-09] MEDS: METOPROLOL TARTRATE 25 MG TABLET PO SCH (18:05)
[2018-07-09] MEDS: DOCUSATE SODIUM 100 MG CAPSULE PO SCH (18:05)
--- NOTE | 2018-07-09 18:59 | PDOC H&P ---
History of Present Illness Admission Date/PCP: 07/09/18 17:10 [facility] Patient complains of: Chest pain History of Present Illness: HALEY ALCALA is a 57 year old male with a history of myocardial infarction (likely N STEMI) about 10 years ago. At that time he had a cardiac catheterization which showed insignificant stenosis (30%) and he is not sure which vessels. He states that approximately 1-1/2 weeks ago he had severe stabbing pain in the left chest. It radiated to the shoulder. He was short of breath and experience palpitations. He states that he has been getting more short of breath with less exercise. He reports diaphoresis. He states that he does get sweaty and not just with the chest pain. He has had neck surgery and right shoulder surgery and so he has chronic neck and shoulder pain. He did not experience any nausea or vomiting. He does not have any sublingual nitroglycerin anymore and he did not take aspirin with any of these events. They all resolve spontaneously. His first troponin was negative and he has no elevated white blood cell count. He is afebrile. He has multiple other complaints. See review of systems for details. With his history and description of the symptoms he was referred to the hospital service for chest pain admission to rule out acute cardiac syndrome. Past Medical History Cardiac Medical History: Reports: Coronary Artery Disease, Myocardial Infarc tion, Hyperlipidema, Hypertension Denies: Congestive Heart Failure, DVT, Pulmonary Embolism Pulmonary Medical History: Reports: Sleep Apnea Denies: Asthma, Chronic Obstructive Pulmonary Disease (COPD) EENT Medical History: Reports: Eyes - Blurry vision. Requires glasses. He states that it is getting worse. Neurological Medical History: Reports: Other - Reports [id number] as well as numbness in both feet Denies: Seizures Endocrine Medical History: Reports: Diabetes Mellitus Type 2 - "borderline" Denies: Diabetes Mellitus Type 1, Hyperthyroidism, Hypothyroidism Renal/ Medical History: Reports: None Malignancy Medical History: Reports: None GI Medical History: Reports: Gastroesophageal Reflux Disease Denies: Cirrhosis, Hepatitis Musculoskeltal Medical History: Reports: Arthritis, Other - Cervical fusion Skin Medical History: Reports: None Denies: Eczema, Psoriasis Psychiatric Medical History: Reports: Depression, Tobacco Dependency Traumatic Medical History: Reports: None Infectious Medical History: Reports: None Past Surgical History Past Surgical History: Reports: Cardiac Catheterization, Knee Replacement, Orthopedic Surgery - Left total knee replacement. C3-C4 and C4- C5 ACF., Bicep tendon rupture Social History Lives with: Alone - He is without children Smoking Status: Current Every Day Smoker Cigarettes Packs Per Day: 1 Frequency of Alcohol Use: Occasional Hx Recreational Drug Use: No Drugs: None Hx Prescription Drug Abuse: No - Advance Directive Resuscitation Status: Full Code Surrogate healthcare decision maker:: He is and has no children. I informed him of the medical decision making document that is in the admission packet. He will review and we will discuss again tomorrow. Family History Family History: COPD, Malignancy Parental Family History Reviewed: Yes Children Family History Reviewed: NA Sibling(s) Family History Reviewed.: Yes Medication/Allergy Home Medications: Aspirin [Aspirin 81 mg Chewable Tablet] 81 mg PO DAILY 03/24/15 Enalapril Maleate [Vasotec 10 mg Tablet] 20 mg PO QHS 03/24/15 Pravastatin Sodium [Pravachol] 80 mg PO QHS 03/24/15 Bupropion HCl [Bupropion HCl Sr] 150 mg PO Q12 07/09/18 Metoprolol Tartrate [Lopressor 25 mg Tablet] 0 mg PO .DAILY OR 12.5MG BID 07/09/18 Allergies/Adverse Reactions: Sulfa (Sulfonamide Antibiotics) Allergy (Verified 03/28/18 14:20) Review of Systems Constitutional: PRESENT: as per HPI, fatigue, night sweats. ABSENT: fever(s), headache(s) Eyes: PRESENT: visual disturbances - Worsening blurry vision Ears: ABSENT: hearing changes Nose, Mouth, and Throat: PRESENT: mouth pain - Discomfort upper teeth Cardiovascular: PRESENT: dyspnea on exertion, edema - Bilateral lower extremities worse at the end of the day, palpitations Respiratory: PRESENT: dyspnea. ABSENT: cough, hemoptysis, sputum Gastrointestinal: PRESENT: heartburn. ABSENT: abdominal pain, constipation, diarrhea, melena, nausea, vomiting Genitourinary: ABSENT: dysuria, hematuria Musculoskeletal: PRESENT: back pain - Cervical spine pain, other - Right knee pain Integumentary: ABSENT: diaphoresis, rash, wounds Neurological: PRESENT: memory loss - Difficulty with concentration and attention span., numbness - Both feet. ABSENT: abnormal gait, abnormal speech, confusion, syncope, tremor(s) Psychiatric: PRESENT: anxiety, depression. ABSENT: hallucinations Endocrine: ABSENT: cold intolerance, heat intolerance, polydipsia, polyphagia Hematologic/Lymphatic: ABSENT: easy bruising, lymphadenopathy Physical Exam Vital Signs: Temp Pulse Resp BP Pulse Ox 98.2 F 74 20 138/72 H 96 07/09/18 12:55 07/09/18 12:55 07/09/18 17:01 07/09/18 17:01 07/09/18 17:01 Intake & Output 07/08/18 07/09/18 07/10/18 06:59 06:59 06:59 Weight 102.6 kg General appearance: PRESENT: no acute distress, cooperative, obese, well- developed Head exam: PRESENT: atraumatic, normocephalic Eye exam: PRESENT: conjunctiva pink, EOMI, PERRLA. ABSENT: scleral icterus Ear exam: PRESENT: normal external ear exam Mouth exam: PRESENT: dry mucosa, tongue midline Respiratory exam: PRESENT: symmetrical, unlabored. ABSENT: accessory muscle use, rales, rhonchi, tachypnea, wheezes Cardiovascular exam: PRESENT: RRR, +S1, +S2, other - Distant heart sounds GI/Abdominal exam: PRESENT: normal bowel sounds, soft, other - Protuberant abdomen. ABSENT: distended, tenderness Rectal exam: PRESENT: deferred Gentrourinary exam: ABSENT: indwelling catheter Extremities exam: PRESENT: pedal edema - Trace pitting edema to the distal leg., other - Several scars on right knee from total knee arthroplasty Musculoskeletal exam: PRESENT: ambulatory, normal inspection Neurological exam: PRESENT: alert, awake, oriented to person, oriented to place, oriented to time, oriented to situation. ABSENT: motor sensory deficit Psychiatric exam: PRESENT: anxious - Appears slightly anxious, appropriate affect, normal mood. ABSENT: agitated Focused psych exam: ABSENT: delusional, restlessness Results Laboratory Results: 07/09/18 14:25 07/09/18 14:25 07/09/18 07/09/18 07/09/18 14:25 14:25 14:25 WBC 9.1 RBC 5.36 Hgb 15.8 Hct 47.0 MCV 88 MCH 29.6 MCHC 33.7 RDW 14.2 H Plt Count 234 Seg Neutrophils % 62.9 Lymphocytes % 24.8 Monocytes % 8.8 Eosinophils % 2.9 Basophils % 0.6 Absolute Neutrophils 5.7 Absolute Lymphocytes 2.3 Absolute Monocytes 0.8 Absolute Eosinophils 0.3 Absolute Basophils 0.1 Sodium 138.9 Potassium 4.5 Chloride 101 Carbon Dioxide 27 Anion Gap 11 BUN 13 Creatinine 0.76 Est GFR ( Amer) > 60 Est GFR (Non-Af Amer) > 60 Glucose 100 Calcium 10.0 Magnesium 1.9 Total Bilirubin 0.6 AST 22 ALT 31 Alkaline Phosphatase 80 Total Protein 7.3 Albumin 4.4 Lipase 68.8 TSH 0.96 07/09/18 07/09/18 14:25 14:25 Creatine Kinase 77 CK-MB (CK-2) 0.30 Troponin I < 0.012 NT-Pro-B Natriuret Pep 34 Impressions: Chest X-Ray 07/09/18 13:00 IMPRESSION: NO ACUTE RADIOGRAPHIC FINDING IN THE CHEST. Assessment and Plan - Diagnosis (1) Chest pain Qualifiers: Chest pain type: precordial pain Qualified Code(s): R07.2 - Precordial pain Is this a current diagnosis for this admission?: Yes Plan: 07/09/2018-the patient has 1-1/2 weeks of intermittent chest pain as described above. He reports associated palpitations, diaphoresis and shortness of breath. There is no nausea or vomiting. At times due to multiple complaints it was difficult to follow the symptom pattern. He does have hypertension and hyperlipidemia. He does have a history of myocardial infarction per the patient. He also carries a diagnosis of diabetes mellitus type 2 but is not on any medication and in fact carries glucose tablets with him which makes no sense. Regardless, he will be admitted for serial troponins. His first troponin was less than 0.012. I explained that if his tests were negative he would be discharged tomorrow. He will need to follow-up with cardiology at the [facility]. He has multiple other complaints and I suggested that he will need follow- up at the [facility] for those as well. (2) Coronary artery disease due to calcified coronary lesion Is this a current diagnosis for this admission?: Yes Plan: 07/09/2018-the patient has history of coronary artery disease. He reports having had a catheterization approximately 10 years ago and had a "heart attack ". This is most likely a non-ST elevation myocardial infarction. He reports that catheterization revealed 30% blockage but is not sure in which artery. We will check a lipid panel and continue him on his metoprolol, enalapril, atorvastatin (substituted for pravastatin) and aspirin (3) HTN (hypertension) Qualifiers: Hypertension type: essential hypertension Qualified Code(s): I10 - Essential (primary) hypertension Is this a current diagnosis for this admission?: Yes Plan: 07/09/2018-blood pressure is actually appear to be well controlled. Continue the enalapril and metoprolol as noted above. (4) Hyperlipidemia Qualifiers: Hyperlipidemia type: unspecified Qualified Code(s): E78.5 - Hyperlipidemia, unspecified Is this a current diagnosis for this admission?: Yes Plan: 07/09/2018-check lipid profile. Continue statin therapy. (5) Palpitations Is this a current diagnosis for this admission?: Yes Plan: 07/09/2018-currently no palpitations were auscultated. Will review telemetry monitoring through the night. No significant abnormality in electrolytes. There is a possibility that he has associated anxiety as well as depression and this could be causing palpitations. (6) Depression Qualifiers: Depression Type: unspecified Qualified Code(s): F32.9 - Major depressive disorder, single episode, unspecified Is this a current diagnosis for this admission?: Yes Plan: 07/09/2018-he does carry a diagnosis of depression. He is on extended release Wellbutrin. We will use immediate release more frequently during his hospitalization. If his cardiac work-up is negative then consideration might be given to anxiety contributing to his symptoms. (7) Diabetes mellitus type 2 in obese Is this a current diagnosis for this admission?: Yes Plan: 07/09/2018-the patient reports history of diabetes but yet is not on any medications despite his obesity and heart disease. He also reports carrying glucose tablets in his pocket. He is most unlikely to experience hypoglycemia with untreated diabetes. I will order hemoglobin A1c. He may very well not have diabetes at all. (8) Tobacco dependence due to cigarettes Is this a current diagnosis for this admission?: Yes Plan: 07/09/2018-this is not the first time he has been told, but I did encourage smoking cessation. This is especially critical with his underlying heart disease as well as multiple risk factors. If he has evidence of nicotine withdrawal we can offer a nicotine patch. His expected length of stay however is only one night. - Time Time Spent with patient: 35 or more minutes Smoking Cessation Education: 3 to 10 minutes Medications reviewed and adjusted accordingly: Yes Anticipated discharge: Home Within: within 48 hours
--- NOTE | 2018-07-09 19:02 | ADVANCED CARE ---
- Diagnosis (1) Chest pain Diagnosis Current: Yes (2) Coronary artery disease due to calcified coronary lesion Diagnosis Current: Yes (3) HTN (hypertension) Diagnosis Current: Yes (4) Hyperlipidemia Diagnosis Current: Yes (5) Palpitations Diagnosis Current: Yes (6) Depression Diagnosis Current: Yes (8) Tobacco dependence due to cigarettes Diagnosis Current: Yes Attendance: Myself and the patient Resuscitation Status: Full Code Discussion: The patient is and clearly indicated that he would not want his ex- making any decisions. He has no children. I explained that there is a generic healthcare proxy form in his admission packet. I asked him to review it tonight. I explained that he can designated decision maker (likely a sibling) as well as being more specific regarding resuscitation. I described examples such as limiting the time on a ventilator, avoiding tracheostomy and PEG tube placement and desires not wanting to live in a halfway as an example. He appreciated the discussion. He will review the document. We may be able to establish a baseline healthcare proxy for the patient prior to discharge. Care Planning Goals: To complete a healthcare proxy form to designated decision maker and outline any wishes and restrictions that the patient may have Document(s) Completed: Document discussed but not completed this evening. Time Spent: 20 minutes
[2018-07-09] MEDS: BUPROPION HCL 100 MG TABLET PO SCH (19:52)
[2018-07-09] MEDS ORDERED: ATORVASTATIN CALCIUM 20 MG TABLET PO SCH (22:00)
[2018-07-09] MEDS ORDERED: ENALAPRIL MALEATE 10 MG TABLET PO SCH (22:00)
--- NOTE | 2018-07-09 23:48 | EKG REPORT ---
SEVERITY:- OTHERWISE NORMAL ECG - SINUS RHYTHM VENTRICULAR PREMATURE COMPLEX BORDERLINE RIGHT AXIS DEVIATION : Confirmed by: Marisol Sanchez MD 09-Jul-2018 23:47:32
[2018-07-10] MEDS ORDERED: PANTOPRAZOLE SODIUM 40 MG TABLET.DR PO SCH (06:00)
[2018-07-10 09:13] LABS: TRIGLYCERIDES 200 mg/dL (<150)
[2018-07-10 09:20] LABS: ALANINE AMINOTRANSFERASE 28 U/L (21-72); ALBUMIN 3.9 g/dL (3.5-5.0); ALKALINE PHOSPHATASE 74 U/L (38-126); ANION GAP 7 (5-19); ASPARTATE AMINO TRANSFERASE 19 U/L (17-59); BILIRUBIN,DIRECT 0.3 mg/dL (0.0-0.4); BILIRUBIN,TOTAL 0.5 mg/dL (0.2-1.3); BLOOD UREA NITROGEN 13 mg/dL (7-20); CALCIUM 9.6 mg/dL (8.4-10.2); CARBON DIOXIDE 26 mmol/L (22-30); CHLORIDE 103 mmol/L (98-107); GLUCOSE 116 mg/dL (75-110); POTASSIUM 4.6 mmol/L (3.6-5.0); SODIUM 135.7 mmol/L (137-145); TOTAL PROTEIN 6.8 g/dL (6.3-8.2)
[2018-07-10 09:23] LABS: ABSOLUTE EOSINOPHILS # (AUTO) 0.3 10^3/uL (0.0-0.6); ABSOLUTE LYMPHOCYTES (AUTO) 2.1 10^3/uL (0.5-4.7); ABSOLUTE MONOCYTES (AUTO) 0.8 10^3/uL (0.1-1.4); ABSOLUTE NEUT (AUTO) 4.3 10^3/uL (1.7-8.2); BASOPHILS % (AUTO) 0.4 % (0-2); EOSINOPHILS % (AUTO) 4.3 % (0-6); HEMATOCRIT 44.4 % (37.9-51.0); HEMOGLOBIN 15.1 g/dL (13.5-17.0); LYMPHOCYTES % (AUTO) 27.5 % (13-45); MEAN CORPUSCULAR VOLUME 88 fl (80-97); MONOCYTES % (AUTO) 10.4 % (3-13); PLATELET COUNT 228 10^3/uL (150-450); RED BLOOD COUNT 5.02 10^6/uL (4.35-5.55); RED CELL DISTRIBUTION WIDTH 14.4 % (11.5-14.0); SEGMENTED NEUTROPHILS % (AUTO) 57.4 % (42-78); TOTAL CELLS COUNTED % (AUTO) 100 %; WHITE BLOOD COUNT 7.5 10^3/uL (4.0-10.5)
[2018-07-10 09:24] LABS: DIRECT LDL 92 mg/dL (<100)
[2018-07-10] MEDS: DOCUSATE SODIUM 100 MG CAPSULE PO SCH (09:58)
[2018-07-10] MEDS: METOPROLOL TARTRATE 25 MG TABLET PO SCH (09:58)
[2018-07-10] MEDS: BUPROPION HCL 100 MG TABLET PO SCH (09:58)
[2018-07-10] MEDS ORDERED: ENOXAPARIN SODIUM INJ 40 MG/0.4 ML DISP.SYRIN SUBCUT SCH (10:00)
[2018-07-10] MEDS ORDERED: ASPIRIN 81 MG TABLET, CHEWABLE PO SCH (10:00)
[2018-07-10 10:01] VITALS: BP 112/70
--- NOTE | 2018-07-10 11:22 | PDOC DISCHARGE SUMMARY ---
General - Admit/Disc Date/PCP Admission Date/Primary Care Provider: 07/09/18 17:10 [facility] Discharge Date: 07/10/18 - Discharge Diagnosis (1) Chest pain Is this a current diagnosis for this admission?: Yes Summary: The patient had multiple troponin studies at less than 0.012. He does have a history of coronary disease but I explained to him that his symptoms over the last 10 to 12 days are not cardiac in origin. It is likely depression and anxiety although gastroesophageal reflux disease cannot be ruled out. (2) Coronary artery disease due to calcified coronary lesion Is this a current diagnosis for this admission?: Yes Summary: He has a history of coronary artery disease. This current episode is not cardiogenic. I still encouraged him to follow-up with his frame repairer after discharge since it is been at least 5 years since his last stress test or intervention. His lipid profile does reveal a LDL level just below 100 but with a history of coronary disease it should be closer to 70. His triglycerides are still too high at 200. His total cholesterol is just under 150 however again due to his history it should be closer to 100 and his HDL would benefit from being higher. He is already on the maximum dose of pravastatin. He should likely switch to atorvastatin Vasu statin at higher doses with appropriate follow-up. I will defer to his frame repairer and/or primary care physician for this matter. (3) HTN (hypertension) Is this a current diagnosis for this admission?: Yes Summary: He is blood pressure in fact was a little on the low side this morning. His pulse was well controlled. It is certainly possible that he has been out of some of his medications. I did give him a new prescription for metoprolol tar trate 12.5 mg twice daily and explained that there is a long-acting form that he can take once a day. His enalapril dose may also need to be decreased slightly. (4) Hyperlipidemia Is this a current diagnosis for this admission?: Yes Summary: Continue pravastatin 80 mg daily but he might benefit from changing to atorvastatin or rosuvastatin as discussed above. (5) Palpitations Is this a current diagnosis for this admission?: Yes Summary: His EKG did exhibit occasional PVCs. This could be his palpitations. His electrolytes are normal. This can be further addressed at cardiology follow-up. (6) Depression Is this a current diagnosis for this admission?: Yes Summary: He does seem anxious this morning. He is on Wellbutrin. Reviewed the high likelihood that these episodes could be related to depression and/or anxiety. I did ask if he felt overwhelmed including right shoulder and arm pain, right knee pain, neck and back pain and appears anxious in general. I told him to continue his antidepressant at its current dose but he would benefit from reassessment and possible change in medication. In addition, depression would be consistent with his complaints of poor concentration and attention span. (7) Diabetes mellitus type 2 in obese Is this a current diagnosis for this admission?: Yes Summary: He has hemoglobin A1c in fact is slightly elevated at 7.1. He would benefit from further evaluation. At this level it is likely that he might control it with diet or low-dose metformin. I do not feel it is appropriate to start him on medication on the day of discharge but will encourage him to follow-up with primary care. (8) Tobacco dependence due to cigarettes Is this a current diagnosis for this admission?: Yes Summary: Again encouragement to achieve tobacco cessation as it will improve his long- term health prospects. - Additional Information Resuscitation Status: Full Code Prescriptions: Metoprolol Tartrate [Lopressor 25 mg Tablet] 12.5 mg PO BID 30 Days #30 tablet Home Medications: Aspirin [Aspirin 81 mg Chewable Tablet] 81 mg PO DAILY 03/24/15 Enalapril Maleate [Vasotec 10 mg Tablet] 20 mg PO QHS 03/24/15 Pravastatin Sodium [Pravachol] 80 mg PO QHS 03/24/15 Bupropion HCl [Bupropion HCl Sr] 150 mg PO Q12 07/09/18 Metoprolol Tartrate [Lopressor 25 mg Tablet] 12.5 mg PO BID 30 Days #30 tablet 07/10/18 Metoprolol Tartrate [Lopressor 25 mg Tablet] 25 mg PO BID #0 07/10/18 History of Present Illness Patient complains of: Chest pain History of Present Illness: HALEY ALCALA is a 57 year old male with a history of myocardial infarction (likely N STEMI) about 10 years ago. At that time he had a cardiac catheterization which showed insignificant stenosis (30%) and he is not sure which vessels. He states that approximately 1-1/2 weeks ago he had severe stabbing pain in the left chest. It radiated to the shoulder. He was short of breath and experience palpitations. He states that he has been getting more short of breath with less exercise. He reports diaphoresis. He states that he does get sweaty and not just with the chest pain. He has had neck surgery and right shoulder surgery and so he has chronic neck and shoulder pain. He did not experience any nausea or vomiting. He does not have any sublingual nitroglycerin anymore and he did not take aspirin with any of these events. They all resolve spontaneously. His first troponin was negative and he has no elevated white blood cell count. He is afebrile. He has multiple other complaints. See review of systems for details. With his history and description of the symptoms he was referred to the hospital service for chest pain admission to rule out acute cardiac syndrome. Hospital Course Hospital Course: The patient had an uneventful hospital course. He is chest pain-free this morning. He has had multiple serial troponin studies that are negative. His EKG was unremarkable for acute change. He will discharge home today and arrange outpatient follow-up at the ID. Physical Exam Vital Signs: Temp Pulse Resp BP Pulse Ox 97.7 F 71 19 96/61 L 93 07/10/18 03:04 07/10/18 07:00 07/09/18 19:28 07/10/18 03:04 07/10/18 03:04 Intake & Output 07/09/18 07/10/18 07/11/18 06:59 06:59 06:59 Weight 101.9 kg General appearance: PRESENT: no acute distress, cooperative, well-developed Head exam: PRESENT: atraumatic, normocephalic Eye exam: PRESENT: conjunctiva pink. ABSENT: scleral icterus Ear exam: PRESENT: normal external ear exam Respiratory exam: PRESENT: clear to auscultation [place], symmetrical, unlabored. ABSENT: accessory muscle use, rales, rhonchi, tachypnea, wheezes Cardiovascular exam: PRESENT: RRR, +S1, +S2 GI/Abdominal exam: PRESENT: normal bowel sounds, soft, other - Protuberant abdomen. ABSENT: distended, tenderness Rectal exam: PRESENT: deferred Gentrourinary exam: ABSENT: indwelling catheter Extremities exam: ABSENT: joint swelling, pedal edema Neurological exam: PRESENT: alert, awake, oriented to person, oriented to place, oriented to time, oriented to situation, CN II-XII grossly intact Psychiatric exam: PRESENT: anxious - Appears anxious, flat affect. ABSENT: agitated Focused psych exam: ABSENT: delusional, restlessness Skin exam: PRESENT: dry, warm. ABSENT: rash Results Laboratory Results: 07/09/18 14:25 07/09/18 14:25 07/09/18 07/09/18 07/09/18 14:25 14:25 14:25 WBC 9.1 RBC 5.36 Hgb 15.8 Hct 47.0 MCV 88 MCH 29.6 MCHC 33.7 RDW 14.2 H Plt Count 234 Seg Neutrophils % 62.9 Lymphocytes % 24.8 Monocytes % 8.8 Eosinophils % 2.9 Basophils % 0.6 Absolute Neutrophils 5.7 Absolute Lymphocytes 2.3 Absolute Monocytes 0.8 Absolute Eosinophils 0.3 Absolute Basophils 0.1 Sodium 138.9 Potassium 4.5 Chloride 101 Carbon Dioxide 27 Anion Gap 11 BUN 13 Creatinine 0.76 Est GFR ( Amer) > 60 Est GFR (Non-Af Amer) > 60 Glucose 100 Calcium 10.0 Magnesium 1.9 Total Bilirubin 0.6 AST 22 ALT 31 Alkaline Phosphatase 80 Total Protein 7.3 Albumin 4.4 Lipase 68.8 TSH 0.96 07/09/18 07/09/18 07/09/18 14:25 14:25 20:30 Creatine Kinase 77 CK-MB (CK-2) 0.30 Troponin I < 0.012 < 0.012 NT-Pro-B Natriuret Pep 34 07/10/18 02:32 Creatine Kinase CK-MB (CK-2) Troponin I < 0.012 NT-Pro-B Natriuret Pep Impressions: Chest X-Ray 07/09/18 13:00 IMPRESSION: NO ACUTE RADIOGRAPHIC FINDING IN THE CHEST. Qualifiers - * PATIENT BEING DISCHARGED WITH ANY OF THE FOLLOWING DIAGNOSIS: No Acute Heart Failure Is this a Heart Failure Patient?: No Plan Discharge Plan: Discharge to home. Follow-up at the [facility] clinic. Suggest primary care as well as cardiology. Time Spent: Greater than 30 Minutes
== END 2018-07-10 10:45 | disposition home or self-care (01) ==
LOC: ER 12:37 → EH 17:10 → 5 18:52
PROVIDERS: ADMIT Hospitalist; ATTEND Hospitalist
PROC: HZ31ZZZ Individual Counseling for Substance Abuse Treatment, Behavioral (ICD-10-PCS; principal; 2018-07-09)
DX: R07.9 Chest pain, unspecified (principal); I25.10 Atherosclerotic heart disease of native coronary artery without angina pectoris; I10 Essential (primary) hypertension; E78.5 Hyperlipidemia, unspecified; R00.2 Palpitations; F32.9 Major depressive disorder, single episode, unspecified; E11.9 Type 2 diabetes mellitus without complications; E66.9 Obesity, unspecified; F17.210 Nicotine dependence, cigarettes, uncomplicated; I25.2 Old myocardial infarction; R06.02 Shortness of breath; G89.29 Other chronic pain; M54.2 Cervicalgia; M25.511 Pain in right shoulder; R12 Heartburn; K13.79 Other lesions of oral mucosa; R20.0 Anesthesia of skin; R60.0 Localized edema; Z98.1 Arthrodesis status; M25.561 Pain in right knee; R41.3 Other amnesia; K42.9 Umbilical hernia without obstruction or gangrene; I49.3 Ventricular premature depolarization; Z79.899 Other long term (current) drug therapy; Z79.82 Long term (current) use of aspirin; Z98.890 Other specified postprocedural states; Z82.5 Family history of asthma and other chronic lower respiratory diseases; Z96.652 Presence of left artificial knee joint
CPT/HCPCS: 99406; 93005; 99284; 36415 ×2; 82553; 82962; 82550; 83690; 83735 ×2; 84443; 85025 ×2; 80053 ×2; 84484 ×2; 83036; 80061; 83880; 71046; 93010; G0378 ×3; J3490 ×3

== ENCOUNTER 2018-08-09 15:36 | Emergency (ER) | payer OTHER ==
[2018-08-09] MEDS ORDERED: MORPHINE SULFATE 10 MG/ML INJ IM ONE (17:57)
[2018-08-09] MEDS ORDERED: ASPIRIN 81 MG TABLET, CHEWABLE PO ONE (17:59)
--- NOTE | 2018-08-09 18:04 | ER Document Report ---
ED Medical Screen (RME) - General Chief Complaint: Shoulder Injury Stated Complaint: LEFT SHOULDER PAIN Time Seen by Provider: 08/09/18 16:58 Primary Care Provider: SAMIR GAGNON [Primary Care Provider] - Follow up as needed Notes: Patient is a 58-year-old male who presents the emergency department with left shoulder pain. He states his symptoms started yesterday. He states he was not doing anything in particular, which made him concerned and he came to the emergency department. Denies any numbness or tingling, but he feels the pain shooting down his left upper arm. He states that he tried using a heating pad, but he had little relief. He also has a past history of neck surgery and right shoulder surgery. He has not had a stress test that he knows of. Patient has a history of an MN over 10 years ago, diabetes, and hypertension. He has not had a heart cath since his MN. Plan is for a full cardiac work-up. Exam: S1-S2, tenderness to left shoulder. I have greeted and performed a rapid initial assessment of this patient. A comprehensive ED assessment and evaluation of the patient, analysis of test results and completion of medical decision making process will be conducted by an additional ED providers. TRAVEL OUTSIDE OF THE [place] IN LAST 30 DAYS: No - Related Data Allergies/Adverse Reactions: Sulfa (Sulfonamide Antibiotics) Allergy (Verified 03/28/18 14:20) Past Medical History - Past Medical History Cardiac Medical History: Reports: Hx Coronary Artery Disease, Hx Heart Attack, Hx Hypercholesterolemia, Hx Hypertension Denies: Hx Congestive Heart Failure, Hx DVT, Hx Pulmonary Embolism Pulmonary Medical History: Reports: Hx Sleep Apnea Denies: Hx Asthma, Hx COPD Neurological Medical History: Denies: Hx Seizures Endocrine Medical History: Reports: Hx Diabetes Mellitus Type 2 - "borderline". Denies: Hx Diabetes Mellitus Type 1, Hx Hyperthyroidism, Hx Hypothyroidism Renal/ Medical History: Denies: Hx Peritoneal Dialysis GI Medical History: Reports: Hx Gastroesophageal Reflux Disease, Hx Colonoscopy. Denies: Hx Cirrhosis, Hx Hepatitis Musculoskeltal Medical History: Reports Hx Arthritis, Reports Hx Muscle Spasm Skin Medical History: Denies Hx Eczema, Denies Hx Psoriasis Psychiatric Medical History: Reports: Hx Depression Infectious Medical History: Denies: Hx Hepatitis Past Surgical History: Reports: Hx Cardiac Catheterization, Hx Orthopedic Surgery - Left total knee replacement. C3-C4 and C4- C5 ACF. - Immunizations Hx Diphtheria, Pertussis, Tetanus Vaccination: Yes Physical Exam - Vital signs Vitals: Temp Pulse Resp BP Pulse Ox 98.8 F 86 18 153/88 H 96 08/09/18 15:54 08/09/18 15:54 08/09/18 15:54 08/09/18 15:54 08/09/18 15:54 Course - Vital Signs Vital signs: Temp Pulse Resp BP Pulse Ox 98.8 F 86 18 153/88 H 96 08/09/18 15:54 08/09/18 15:54 08/09/18 15:54 08/09/18 15:54 08/09/18 15:54 Doctor's Discharge - Discharge Referrals: [facility] [Primary [facility]] - Follow up as needed
--- NOTE | 2018-08-09 18:29 | RADIOLOGY REPORT (SQ) ---
EXAM DESCRIPTION: CHEST SINGLE VIEW COMPLETED DATE/TIME: 08/09/2018 6:20 pm REASON FOR STUDY: Left shoulder pain COMPARISON: 07/09/2018 EXAM PARAMETERS: NUMBER OF VIEWS: One view. TECHNIQUE: Single frontal radiographic view of the chest acquired. RADIATION DOSE: NA LIMITATIONS: None. FINDINGS: LUNGS AND PLEURA: No opacities, masses or pneumothorax. No pleural effusion. MEDIASTINUM AND HILAR STRUCTURES: No masses. Contour normal. HEART AND VASCULAR STRUCTURES: Heart normal in size. Normal vasculature. BONES: No acute findings. HARDWARE: None in the chest. OTHER: No other significant finding. IMPRESSION: NO ACUTE RADIOGRAPHIC FINDING IN THE CHEST. TECHNICAL DOCUMENTATION: JOB ID: [id number] [employer]- All Rights Reserved Reading location - IP/workstation name: [email or web address]
[2018-08-09 19:27] LABS: ABSOLUTE EOSINOPHILS # (AUTO) 0.3 10^3/uL (0.0-0.6); ABSOLUTE LYMPHOCYTES (AUTO) 2.4 10^3/uL (0.5-4.7); ABSOLUTE MONOCYTES (AUTO) 1.4 10^3/uL (0.1-1.4); ABSOLUTE NEUT (AUTO) 8.1 10^3/uL (1.7-8.2); BASOPHILS % (AUTO) 0.4 % (0-2); EOSINOPHILS % (AUTO) 2.5 % (0-6); HEMATOCRIT 46.5 % (37.9-51.0); HEMOGLOBIN 15.7 g/dL (13.5-17.0); LYMPHOCYTES % (AUTO) 19.7 % (13-45); MEAN CORPUSCULAR HEMOGLOBIN 29.8 pg (27.0-33.4); MEAN CORPUSCULAR HGB CONC 33.8 g/dL (32.0-36.0); MEAN CORPUSCULAR VOLUME 88 fl (80-97); MONOCYTES % (AUTO) 11.1 % (3-13); PLATELET COUNT 251 10^3/uL (150-450); RED BLOOD COUNT 5.28 10^6/uL (4.35-5.55); RED CELL DISTRIBUTION WIDTH 14.4 % (11.5-14.0); SEGMENTED NEUTROPHILS % (AUTO) 66.3 % (42-78); TOTAL CELLS COUNTED % (AUTO) 100 %; WHITE BLOOD COUNT 12.2 10^3/uL (4.0-10.5)
[2018-08-09 19:46] LABS: ALANINE AMINOTRANSFERASE 27 U/L (21-72); ALBUMIN 4.6 g/dL (3.5-5.0); ALKALINE PHOSPHATASE 83 U/L (38-126); ANION GAP 10 (5-19); ASPARTATE AMINO TRANSFERASE 20 U/L (17-59); BILIRUBIN,DIRECT 0.3 mg/dL (0.0-0.4); BILIRUBIN,TOTAL 0.7 mg/dL (0.2-1.3); BLOOD UREA NITROGEN 11 mg/dL (7-20); CALCIUM 9.9 mg/dL (8.4-10.2); CARBON DIOXIDE 26 mmol/L (22-30); CHLORIDE 102 mmol/L (98-107); CREATINE KINASE 61 U/L (55-170); GLUCOSE 105 mg/dL (75-110); POTASSIUM 4.6 mmol/L (3.6-5.0); SODIUM 138.4 mmol/L (137-145); TOTAL PROTEIN 7.7 g/dL (6.3-8.2)
[2018-08-09 19:56] LABS: CREATINE KINASE MB 0.26 ng/mL (<4.55)
[2018-08-09 20:00] LABS: TROPONIN I < 0.012 ng/mL
[2018-08-09] MEDS ORDERED: OXYCODONE-ACETAMINOPHEN 5-325 MG TABLET PO ONE (21:21)
[2018-08-09] MEDS ORDERED: KETOROLAC TROMETHAMINE INJ/PF 30 MG/1 ML SDV IV ONE (21:21)
--- NOTE | 2018-08-09 21:27 | ER Document Report ---
ED Extremity Problem, Upper - General Chief Complaint: Shoulder Injury Stated Complaint: LEFT SHOULDER PAIN Time Seen by Provider: 08/09/18 16:58 Primary Care Provider: BLAKE SANDOVAL MD [ACTIVE STAFF] - Follow up as needed [facility] [Primary [facility]] - Follow up as needed JOYCE DANIELS DO [ACTIVE STAFF] - Follow up as needed Notes: Patient is a 58-year-old male with a history of hypertension, type 2 diabetes, hyperlipidemia, coronary artery disease who presents to the emergency department with left shoulder pain. Patient states that on Wednesday he was sitting around the house when he developed an ache in his left shoulder. Patient states that gradually over the past 2 days the left shoulder pain has gotten worse. Patient states there was no injury or fall. Patient states the pain is significantly worse with movement and at times he will have a tingling down his left arm. Denies local history to the left shoulder. Patient reports limited range of motion due to significant pain. Patient states he does not take any pain medication for the discomfort. Patient denies chest pain. Patient denies shortness of breath. TRAVEL OUTSIDE OF THE [place] IN LAST 30 DAYS: No - Related Data Allergies/Adverse Reactions: Sulfa (Sulfonamide Antibiotics) Allergy (Verified 03/28/18 14:20) Past Medical History - General Information source: Patient - Social History Smoking Status: Current Every Day Smoker Cigarette use (# per day): Yes - 1ppd Chew tobacco use (# tins/day): No Frequency of alcohol use: Occasional Drug Abuse: None Lives with: Family Family History: Reviewed & Not Pertinent Patient has suicidal ideation: No Patient has homicidal ideation: No - Past Medical History Cardiac Medical History: Reports: Hx Coronary Artery Disease, Hx Heart Attack, Hx Hypercholesterolemia, Hx Hypertension Denies: Hx Congestive Heart Failure, Hx DVT, Hx Pulmonary Embolism Pulmonary Medical History: Reports: Hx Sleep Apnea Denies: Hx Asthma, Hx COPD EENT Medical History: Reports: None Neurological Medical History: Reports: None. Denies: Hx Seizures Endocrine Medical History: Reports: Hx Diabetes Mellitus Type 2 - "borderline". Denies: Hx Diabetes Mellitus Type 1, Hx Hyperthyroidism, Hx Hypothyroidism Renal/ Medical History: Reports: None. Denies: Hx Peritoneal Dialysis Malignancy Medical History: Reports None GI Medical History: Reports: Hx Gastroesophageal Reflux Disease, Hx Colonoscopy. Denies: Hx Cirrhosis, Hx Hepatitis Musculoskeletal Medical History: Reports Hx Arthritis, Reports Hx Muscle Spasm Skin Medical History: Reports None, Denies Hx Eczema, Denies Hx Psoriasis Psychiatric Medical History: Reports: Hx Depression Traumatic Medical History: Reports: None Infectious Medical History: Reports: None. Denies: Hx Hepatitis Past Surgical History: Reports: Hx Cardiac Catheterization, Hx Orthopedic Surgery - Left total knee replacement. C3-C4 and C4- C5 ACF. - Immunizations Hx Diphtheria, Pertussis, Tetanus Vaccination: Yes Review of Systems - Review of Systems Constitutional: No symptoms reported EENT: No symptoms reported Cardiovascular: No symptoms reported Respiratory: No symptoms reported Gastrointestinal: No symptoms reported Genitourinary: No symptoms reported Male Genitourinary: No symptoms reported Musculoskeletal: See HPI Skin: No symptoms reported Hematologic/Lymphatic: No symptoms reported Neurological/Psychological: No symptoms reported Physical Exam - Vital signs Vitals: Temp Pulse Resp BP Pulse Ox 98.8 F 86 18 153/88 H 96 08/09/18 15:54 08/09/18 15:54 08/09/18 15:54 08/09/18 15:54 08/09/18 15:54 Interpretation: Hypertensive - Notes Notes: GENERAL: Well-appearing, well-nourished and in no acute distress. HEAD: Atraumatic, normocephalic. EYES: Pupils equal round and reactive to light, extraocular movements intact, sclera anicteric, conjunctiva are normal. ENT: Nares patent, oropharynx clear without exudates. Moist mucous membranes. NECK: Normal range of motion, supple without lymphadenopathy or JVD. LUNGS: Breath sounds clear to auscultation bilaterally and equal. No wheezes rales or rhonchi. HEART: Regular rate and rhythm without murmurs, rubs or gallops. ABDOMEN: Soft, round, nontender, normoactive bowel sounds. No guarding, no rebound. No masses appreciated. BACK: No cervical, thoracic, lumbar midline tenderness. No saddle anesthesia, normal distal neurovascular exam. GENITOURINARY: Deferred. EXTREMITIES: Limited AROM to left shoulder, patient unable to raise left arm above the height of the shoulder due to pain. Patient to able to perform abduction and adduction, patient has difficulty externally rotating the shoulder, patient is able to internally rotate. Positive can test. NEUROLOGICAL: Cranial nerves II through XII grossly intact. Normal speech, normal gait. PSYCH: Normal mood, normal affect. SKIN: Warm, Dry, normal turgor, no rashes or lesions noted. Course - Re-evaluation Re-evalutation: 08/09/18 21:25 Patient sitting upright on stretcher. Patient has limited range of motion to the shoulder as it causes significant pain. She states that the morphine did not help with his discomfort. Patient continues to deny injury or fall to left shoulder. He did have a cardiac work-up from triage. I will obtain a left shoulder x-ray as this is the main complaint. Patient does not have any chest pain or shortness of breath. Troponin was negative. Chest x-ray was un remarkable. 08/10/18 00:07 Patient second troponin was negative. Upon reevaluation patient is resting comfortably on stretcher and sleeping. Patient states that after receiving Percocet and Toradol his left shoulder pain has improved. I did discuss results of the left shoulder x-ray which negative for any acute bony abnormality or dislocation. I did explain to the patient that we will place him into a sling for comfort and that he needs to follow-up with orthopedics as he may need additional imaging if he continues to have pain. We will give patient a prescription for Toradol. I informed the patient that Toradol can upset the stomach and to take with food. Educated patient do not mix the Toradol with NSAIDs such as ibuprofen. Patient continues to deny chest pain or shortness of breath. - Vital Signs Vital signs: Temp Pulse Resp BP Pulse Ox 97.8 F 86 12 110/80 94 08/10/18 00:02 08/09/18 15:54 08/10/18 00:02 08/10/18 00:02 08/10/18 00:02 - Laboratory Result Diagrams: 08/09/18 19:05 08/09/18 19:05 Laboratory results interpreted by me: 08/09/18 19:05 WBC 12.2 H RDW 14.4 H 08/09/18 21:27 Patient has a slight elevated white count 12.2. - Diagnostic Test Radiology reviewed: Reports reviewed Radiology results interpreted by me: 08/09/18 21:28 Patient's EKG shows a sinus rhythm with a heart rate of 76. MN interval is 180, QT is 380 and QTc is 428. Patient has a normal axis deviation. There are no ST segment changes noted in consecutive leads. Discharge - Discharge Clinical Impression: Left shoulder pain Qualifiers: Chronicity: acute Qualified Code(s): M25.512 - Pain in left shoulder Condition: Stable Disposition: HOME, SELF-CARE Additional Instructions: Today you were seen in the emergency department for left shoulder pain. We did obtain a left shoulder x-ray which was negative for any acute dislocation, fracture or any other bony abnormality. It is unsure what is causing your pain as you may have obtained an injury that you are unaware of. We have placed you in a sling which she will wear for comfort. Please take the Toradol as needed for pain which is an anti-inflammatory. Toradol is an NSAID and is very similar to ibuprofen, Aleve, Motrin. Do not take Toradol with other NSAIDs as this can upset the stomach and cause gastric bleeding. Please take Toradol with food. I have referred you to some orthopedics in the area to follow-up with as you may need additional imaging to include an MRI if you continue to have pain. Please return to the emergency department for any worsening signs or symptoms to include numbness or tingling to the left arm, inability to move the left arm, severe pain that is not controlled with the medication. Shoulder Injury You have injured your shoulder. This usually results from stretching or tearing of the tendons during trauma. Time and protection are required in order to heal properly. Many injuries are quite disabling, and should be taken seriously. Initial treatment includes cold packs and a sling to rest the shoulder. The physician has assessed the seriousness of your injury, and has outlined a treatment plan. Understand that this treatment may change, depending on how you progress. If a re-examination was recommended, it is important that you follow up as instructed. Some shoulder injuries (such as partial tear of the rotator cuff) are only suspected after you've failed to improve. Call us if there's severe pain, numbness, or loss of function. Sling as Treatment A sling has been applied to protect the injury. This is adequate immobilization for this type of injury -- no cast or brace is required. Keep the sling on at all times until instructed to remove it by the doctor. Even though no cast or splint is needed, you must use the sling. If you use the arm too soon, it may not heal properly! If necessary, the sling can be adjusted for comfort. Return if you are encountering problems with the sling. Sling as Treatment A sling has been applied to protect the injury. This is adequate immobilization for this type of injury -- no cast or brace is required. Keep the sling on at all times until instructed to remove it by the doctor. Even though no cast or splint is needed, you must use the sling. If you use the arm too soon, it may not heal properly! If necessary, the sling can be adjusted for comfort. Return if you are encountering problems with the sling. Prescriptions: Ketorolac Tromethamine [Toradol 10 mg Tablet] 10 mg PO Q8HP PRN #12 tablet PRN Reason: Referrals: [facility] [Primary [facility]] - Follow up as needed BLAKE SANDOVAL MD [ACTIVE STAFF] - Follow up as needed JOYCE DANIELS DO [ACTIVE STAFF] - Follow up as needed
--- NOTE | 2018-08-09 21:57 | RADIOLOGY REPORT (SQ) ---
EXAM DESCRIPTION: XR SHOULDER 2 OR MORE VIEWS COMPLETED DATE/TME: 08/09/2018 21:18 CLINICAL HISTORY: 58 years, Male, Left shoulder pain COMPARISON: None available FINDINGS: 2 views of the left shoulder. No acute fracture or dislocation. Normal osseous mineralization. No acute abnormalities of visualized left ribs. Postoperative change of the cervical spine. IMPRESSION: 1. No acute fracture or dislocation. copyright 2010 [employer]- All Rights Reserved
[2018-08-10] MEDS ORDERED: HYDROCODONE/ACETAMINOPHEN 5-325 MG (6 TAB/ER DISP) PO PRN (00:14)
--- NOTE | 2018-08-10 00:18 | EKG REPORT ---
SEVERITY:- ABNORMAL ECG - SINUS RHYTHM PROBABLE LEFT ATRIAL ABNORMALITY INCOMPLETE RIGHT BUNDLE BRANCH BLOCK : Confirmed by: Lauro Whiteside 10-Aug-2018 00:17:57
[2018-08-10 00:25] VITALS: BP 110/80
== END 2018-08-10 00:37 | disposition home or self-care (01) ==
LOC: ER 15:36
DX: M25.512 Pain in left shoulder (principal); R20.2 Paresthesia of skin; D72.829 Elevated white blood cell count, unspecified; I10 Essential (primary) hypertension; I25.10 Atherosclerotic heart disease of native coronary artery without angina pectoris; F17.210 Nicotine dependence, cigarettes, uncomplicated; Z88.2 Allergy status to sulfonamides
CPT/HCPCS: 93005; 99283; 96374; 96375; 36415; 82553; 82550; 85025; 80053; 84484; 71045; 73030; 93010; J1885; J2270

== ENCOUNTER 2018-08-20 22:27 | Emergency (ER) | payer OTHER ==
[2018-08-21] MEDS ORDERED: HYDROCODONE/ACETAMINOPHEN 5-325 MG (6 TAB/ER DISP) PO PRN (01:34)
[2018-08-21] MEDS ORDERED: KETOROLAC TROMETHAMINE 60 MG/2 ML SDV IM ONE (01:34)
--- NOTE | 2018-08-21 01:40 | ER Document Report ---
ED Extremity Problem, Upper - General Chief Complaint: Shoulder Pain Stated Complaint: LEFT ARM PAIN Time Seen by Provider: 08/21/18 01:22 Primary Care Provider: [facility] ([facility]) [Provider Group] - 08/22/18 [facility] - 08/22/18 Mode of Arrival: Ambulatory Information source: Patient Notes: 58-year-old male presented to ED for complaint of pain to his left shoulder radiating to the back. He was seen here on 08/09/2018 for the same pain. X-rays were negative at that time. He has also been to see his [facility] since then. He states his shoulder was getting better and then yesterday he started getting much worse so he has not been using it and it was very stiff and he is having trouble moving the arm. He states he came back to the emergency room because the pain is worse. He spoke with the [facility] and they told him it would be October before he can get seen by orthopedics. TRAVEL OUTSIDE OF THE [place] IN LAST 30 DAYS: No - HPI Patient complains to provider of: Pain, Left, Shoulder Onset: Other - August 07 Recent injury: No Where: Home Quality of pain: Sharp, Throbbing Severity of pain: Worse Pain Level: 5 Associated symptoms: Other Exacerbated by: Movement Relieved by: Nothing Similar symptoms previously: Yes Recently seen / treated by doctor: Yes - Related Data Allergies/Adverse Reactions: Sulfa (Sulfonamide Antibiotics) Allergy (Verified 03/28/18 14:20) Past Medical History - General Information source: Patient - Social History Smoking Status: Current Every Day Smoker Cigarette use (# per day): Yes - Pack per day on Chew tobacco use (# tins/day): No Smoking Education Provided: Yes - 4 minutes Frequency of alcohol use: Occasional Drug Abuse: None Lives with: Alone Family History: Reviewed & Not Pertinent Patient has suicidal ideation: No Patient has homicidal ideation: No - Past Medical History Cardiac Medical History: Reports: Hx Coronary Artery Disease, Hx Heart Attack, Hx Hypercholesterolemia, Hx Hypertension Pulmonary Medical History: Reports: Hx Sleep Apnea EENT Medical History: Reports: None Neurological Medical History: Reports: None Endocrine Medical History: Reports: Hx Diabetes Mellitus Type 2 - "borderline" Renal/ Medical History: Reports: None Malignancy Medical History: Reports None GI Medical History: Reports: Hx Gastroesophageal Reflux Disease, Hx Colonoscopy Musculoskeletal Medical History: Reports Hx Arthritis, Reports Hx Muscle Spasm Skin Medical History: Reports None Psychiatric Medical History: Reports: Hx Depression Traumatic Medical History: Reports: None Infectious Medical History: Reports: None Past Surgical History: Reports: Hx Cardiac Catheterization, Hx Orthopedic Surgery - Left total knee replacement. C3-C4 and C4- C5 ACF. - Immunizations Hx Diphtheria, Pertussis, Tetanus Vaccination: Yes Review of Systems - Review of Systems Constitutional: No symptoms reported EENT: No symptoms reported Cardiovascular: No symptoms reported Respiratory: No symptoms reported Gastrointestinal: No symptoms reported Genitourinary: No symptoms reported Male Genitourinary: No symptoms reported Musculoskeletal: Joint pain, Muscle pain, Muscle stiffness, Neck pain - Muscle Skin: No symptoms reported Hematologic/Lymphatic: No symptoms reported Neurological/Psychological: No symptoms reported -: Yes All other systems reviewed and negative Physical Exam - Vital signs Vitals: Temp Pulse Resp BP Pulse Ox 98.2 F 83 16 148/87 H 96 08/20/18 23:33 08/20/18 23:33 08/20/18 23:33 08/20/18 23:33 08/20/18 23:33 Interpretation: Normal - General General appearance: Appears well, Alert - HEENT Head: Normocephalic, Atraumatic Eyes: Normal Pupils: PERRL - Respiratory Respiratory status: No respiratory distress Chest status: Nontender Breath sounds: Normal Chest palpation: Normal - Cardiovascular Rhythm: Regular Heart sounds: Normal auscultation Murmur: No - Abdominal Inspection: Normal Distension: No distension Bowel sounds: Normal Tenderness: Nontender Organomegaly: No organomegaly - Back Back: Normal, Tender - Extremities General upper extremity: Normal color, Normal temperature General lower extremity: Normal inspection, Nontender, Normal color, Normal ROM, Normal temperature, Normal weight bearing. No: Lavinia's sign Shoulder: Tender, Limited ROM - Due to pain - Neurological Neuro grossly intact: Yes Cognition: Normal Orientation: AAOx4 Chapman Coma Scale Eye Opening: Spontaneous Santiago Coma Scale Verbal: Oriented Chapman Coma Scale Motor: Obeys Commands Santiago Coma Scale Total: 15 Speech: Normal Motor strength normal: LUE, RUE, LLE, RLE Sensory: Normal - Psychological Associated symptoms: Normal affect, Normal mood - Skin Skin Temperature: Warm Skin Moisture: Dry Skin Color: Normal Course - Re-evaluation Re-evalutation: 07/14/19 02:29 Patient denies any new injuries to the shoulder. He states he stopped using his shoulder as much because it was hurting and now is more stiff and more painful. I have instructed patient on the need to use his pain medicine and then do the range of motion as discussed. I explained to patient that he needs to follow-up with his [facility] doctor and orthopedics it is very important that he follows up with orthopedics. Patient was treated with a Toradol injection for anti-inflammatory and just sent home with a dispense pack of hydrocodone. I explained to him that we cannot treat this pain with narcotic prescriptions as these need to be received from his primary care doctor not the emergency room. He did get sent home with 6 hydrocodone's. Patient states he has muscle relaxers at home as well as all of his other normal medications. Patient was discharged home after he verbalized understanding and agreement with treatment plan. - Vital Signs Vital signs: Temp Pulse Resp BP Pulse Ox 98.2 F 86 16 147/85 H 98 08/20/18 23:33 08/21/18 01:50 08/21/18 01:50 08/21/18 01:50 08/21/18 01:50 Discharge - Discharge Clinical Impression: Shoulder pain Qualifiers: Chronicity: acute Laterality: left Qualified Code(s): M25.512 - Pain in left shoulder Condition: Stable Disposition: HOME, SELF-CARE Additional Instructions: You were seen today for pain in your left shoulder. You state is the same pain that she had on your last visit but it is much worse. He states that this started to get better but it now is much worse that it was. Exercise Program for the Shoulder Since the shoulder moves in so many directions, the joint attachment is weak. Muscles provide most of the stability to the shoulder. You must exercise your shoulder to prevent painful instability or stiffening. PASSIVE - These may be begun within a few days of the injury. While standing, lean forward, allowing the arm to hang down towards the floor. Move the arm in small circles while slowly twisting your chest towards and away from the hanging arm. Do this for one minute. ACTIVE - These may be performed when the doctor gives permission. Begin with the arms at the sides. Raise the arms forward (shoulder's width apart) until they reach shoulder level. Then slowly swing both arms back until they are aiming straight out away from each other. Then bring them forward again, and finally, lower them to your sides. Repeat 20 to 30 times. As you improve, put weights in your hands for the exercise. Start with one pound, and work up to 10 pounds. Never use more than is comfortable. Athletes may work up to 30 pounds. Ice Packs Apply ice packs frequently against the painful area. Many different schedules are recommended, such as "20 minutes on, 20 minutes off" or "one hour ice, two hours rest." If you need to work, you may need to go longer between ice treatments. You should plan to have the area ice packed AT LEAST one fourth of the time. The ice should be applied over the wrap, tape, or splint, or over a layer of cloth -- not directly against the skin. Some ice bags have a built-in cloth and can be put directly on the skin. Oral Narcotic Medication You have been given a prescription for pain control. This medication is a narcotic. It's best taken with food, as nausea can result if taken on an empty stomach. Don't operate machinery or drive within six hours of taking this medication. Do not combine this medicine with alcohol, or with any medication which can cause sedation (such as cold tablets or sleeping pills) unless you get permission from the physician. Narcotics tend to cause constipation. If possible, drink plenty of fluids and eat a diet high in fiber and fruits. Toradol Injection You have been given an injection of ketorolac tromethamine (Toradol). This is an excellent, safe drug for pain control. It also has potent antiinflammatory action. You should have significant pain relief within about one hour. Toradol is not addicting and is non-sedating. It does not interfere with driving or work. Call or return if you develop itching, hives, shortness of breath, or rash. FOLLOW-UP CARE: If you have been referred to a physician for follow-up care, call the physicians office for an appointment as you were instructed or within the next two days. If you experience worsening or a significant change in your symptoms, notify the physician immediately or return to the Emergency Department at any time for re-evaluation. Forms: Elevated Blood Pressure, Smoking Cessation Education Referrals: [facility] ([facility] [Provider Group] - 08/22/18 [facility] - 08/22/18
[2018-08-21 01:50] VITALS: BP 147/85
--- NOTE | 2018-08-21 19:06 | EKG REPORT ---
SEVERITY:- NORMAL ECG - SINUS RHYTHM : Confirmed by: Marisol Sanchez MD 21-Aug-2018 19:05:54
== END 2018-08-21 01:59 | disposition home or self-care (01) ==
LOC: ER 22:27
DX: M25.512 Pain in left shoulder (principal); F17.210 Nicotine dependence, cigarettes, uncomplicated; I25.10 Atherosclerotic heart disease of native coronary artery without angina pectoris; E78.00 Pure hypercholesterolemia, unspecified; I10 Essential (primary) hypertension; R73.03 Prediabetes; I25.2 Old myocardial infarction; Z96.652 Presence of left artificial knee joint
CPT/HCPCS: 93005; 99406; 99283; 96372; 93010; J1885

== ENCOUNTER 2019-02-05 12:04 | Emergency (ER) | payer OTHER, MEDICARE ==
--- NOTE | 2019-02-05 12:24 | ER Document Report ---
ED Medical Screen (RME) - General Chief Complaint: Neck Problem Stated Complaint: LEFT ARM AND NECK PAIN Time Seen by Provider: 02/05/19 12:18 Primary Care Provider: KALIN,SAMIR [Primary Care Provider] - Follow up as needed TRAVEL OUTSIDE OF THE [place] IN LAST 30 DAYS: No - HPI Notes: 02/05/19 12:23 Patient is a 58-year-old male with a history of coronary artery disease, Hypertension, borderline type 2 diabetes, previous catheterization, chronic left shoulder pain who presents complaining of dyspnea on exertion, left upper chest pain that radiates up into the left side of the neck that began yesterday. Patient states that sometimes the pain will move from his shoulder to his neck, but he has his normal shoulder pain and states that this is something different. He does have some nasal congestion and discharge. Patient states that he did have some sweats last night. I have treated and performed a rapid initial assessment of this patient. A comprehensive ED assessment and evaluation of the patient, analysis of test results and completion of medical decision making process will be conducted by additional ED providers. PHYSICAL EXAMINATION: GENERAL: Well-appearing, well-nourished and in no acute distress. A&Ox4. Answers questions appropriately. Heart: RRR Lungs: Grossly CTAB neck: non-tender to palp left side. - Related Data Allergies/Adverse Reactions: Sulfa (Sulfonamide Antibiotics) Allergy (Verified 02/05/19 12:19) Past Medical History - Past Medical History Cardiac Medical History: Reports: Hx Coronary Artery Disease, Hx Heart Attack, Hx Hypercholesterolemia, Hx Hypertension Denies: Hx Congestive Heart Failure, Hx DVT, Hx Pulmonary Embolism Pulmonary Medical History: Reports: Hx Sleep Apnea Denies: Hx Asthma, Hx COPD Neurological Medical History: Denies: Hx Seizures Endocrine Medical History: Reports: Hx Diabetes Mellitus Type 2 - "borderline". Denies: Hx Diabetes Mellitus Type 1, Hx Hyperthyroidism, Hx Hypothyroidism Renal/ Medical History: Denies: Hx Peritoneal Dialysis GI Medical History: Reports: Hx Gastroesophageal Reflux Disease, Hx Colonoscopy. Denies: Hx Cirrhosis, Hx Hepatitis Musculoskeltal Medical History: Reports Hx Arthritis, Reports Hx Muscle Spasm Skin Medical History: Denies Hx Eczema, Denies Hx Psoriasis Psychiatric Medical History: Reports: Hx Depression Infectious Medical History: Denies: Hx Hepatitis Past Surgical History: Reports: Hx Cardiac Catheterization, Hx Orthopedic Surgery - Left total knee replacement. C3-C4 and C4- C5 ACF. - Immunizations Hx Diphtheria, Pertussis, Tetanus Vaccination: Yes Doctor's Discharge - Discharge Referrals: [facility] - Follow up as needed
[2019-02-05] MEDS ORDERED: ASPIRIN 81 MG TABLET, CHEWABLE PO ONE (12:25)
--- NOTE | 2019-02-05 13:19 | RADIOLOGY REPORT (SQ) ---
EXAM DESCRIPTION: CHEST 2 VIEWS COMPLETED DATE/TIME: 02/05/2019 1:03 pm REASON FOR STUDY: CP COMPARISON: 08/09/2018 TECHNIQUE: Frontal and lateral radiographic views of the chest acquired. NUMBER OF VIEWS: Two view. LIMITATIONS: None. FINDINGS: LUNGS AND PLEURA: No opacities, masses or pneumothorax. No pleural effusion. MEDIASTINUM AND HILAR STRUCTURES: No masses or contour abnormalities. HEART AND VASCULAR STRUCTURES: Heart normal size. No evidence for failure. BONES: No acute findings. HARDWARE: None in the chest. OTHER: No other significant finding. IMPRESSION: NO SIGNIFICANT RADIOGRAPHIC FINDING IN THE CHEST. TECHNICAL DOCUMENTATION: JOB ID: [id number] [employer]- All Rights Reserved Reading location - IP/workstation name: [email or web address]
[2019-02-05 13:28] LABS: ABSOLUTE BASOPHILS # (AUTO) 0.1 10^3/uL (0.0-0.2); ABSOLUTE EOSINOPHILS # (AUTO) 0.3 10^3/uL (0.0-0.6); ABSOLUTE LYMPHOCYTES (AUTO) 2.7 10^3/uL (0.5-4.7); ABSOLUTE NEUT (AUTO) 4.7 10^3/uL (1.7-8.2); BASOPHILS % (AUTO) 0.9 % (0-2); EOSINOPHILS % (AUTO) 2.9 % (0-6); HEMATOCRIT 44.6 % (37.9-51.0); HEMOGLOBIN 15.3 g/dL (13.5-17.0); LYMPHOCYTES % (AUTO) 31.2 % (13-45); MEAN CORPUSCULAR HEMOGLOBIN 30.8 pg (27.0-33.4); MEAN CORPUSCULAR HGB CONC 34.2 g/dL (32.0-36.0); MEAN CORPUSCULAR VOLUME 90 fl (80-97); MONOCYTES % (AUTO) 10.9 % (3-13); PLATELET COUNT 236 10^3/uL (150-450); RED BLOOD COUNT 4.95 10^6/uL (4.35-5.55); RED CELL DISTRIBUTION WIDTH 14.2 % (11.5-14.0); SEGMENTED NEUTROPHILS % (AUTO) 54.1 % (42-78); TOTAL CELLS COUNTED % (AUTO) 100 %; WHITE BLOOD COUNT 8.7 10^3/uL (4.0-10.5)
[2019-02-05 13:36] LABS: ALBUMIN 4.3 g/dL (3.5-5.0); ALKALINE PHOSPHATASE 76 U/L (38-126); ANION GAP 12 (5-19); ASPARTATE AMINO TRANSFERASE 21 U/L (17-59); BILIRUBIN,DIRECT 0.3 mg/dL (0.0-0.4); BILIRUBIN,TOTAL 0.4 mg/dL (0.2-1.3); BLOOD UREA NITROGEN 15 mg/dL (7-20); CALCIUM 10.1 mg/dL (8.4-10.2); CARBON DIOXIDE 24 mmol/L (22-30); CHLORIDE 102 mmol/L (98-107); GLUCOSE 184 mg/dL (75-110); POTASSIUM 4.3 mmol/L (3.6-5.0); TOTAL PROTEIN 7.4 g/dL (6.3-8.2)
[2019-02-05 13:53] LABS: NT PRO BNP 84 pg/mL (<125)
[2019-02-05 13:54] LABS: TROPONIN I < 0.012 ng/mL
[2019-02-05] MEDS ORDERED: MORPHINE SULFATE 10 MG/ML INJ IV ONE (14:17)
--- NOTE | 2019-02-05 16:17 | ER Document Report ---
ED General - General Chief Complaint: Shortness Of Breath Stated Complaint: LEFT ARM AND NECK PAIN Time Seen by Provider: 02/05/19 12:18 Primary Care Provider: KALIN,SAMIR [Primary Care Provider] - Follow up as needed TRAVEL OUTSIDE OF THE [place] IN LAST 30 DAYS: No - HPI Notes: Patient is a 58-year-old male who presents to the emergency department for evaluation of pain in the left shoulder and into the neck. Initially he said chest, but he points to where the trapezius and the base of the neck meet. He states that occasionally radiates up into the left side of his neck. He describes it as a throbbing pain. He states nothing seems to make it worse to his knowledge, he states he feels better when he is laying down. He states that this pain started last night, no known injury. Is been constant in nature since then. He states that he is also had some shortness of breath with exertion, believes that these symptoms coincide. He denies any nausea, diaphoresis, near syncope. He is been taking his medications as prescribed. - Related Data Allergies/Adverse Reactions: Sulfa (Sulfonamide Antibiotics) Allergy (Verified 02/05/19 12:19) Home Medications: List reviewed, please see chart Past Medical History - General Information source: Patient - Social History Smoking Status: Never Smoker Chew tobacco use (# tins/day): No Frequency of alcohol use: None Drug Abuse: None Family History: Reviewed & Not Pertinent Patient has suicidal ideation: No Patient has homicidal ideation: No - Past Medical History Cardiac Medical History: Reports: Hx Coronary Artery Disease, Hx Heart Attack, Hx Hypercholesterolemia, Hx Hypertension Denies: Hx Congestive Heart Failure, Hx DVT, Hx Pulmonary Embolism Pulmonary Medical History: Reports: Hx Sleep Apnea Denies: Hx Asthma, Hx COPD Neurological Medical History: Denies: Hx Seizures Endocrine Medical History: Reports: Hx Diabetes Mellitus Type 2 - "borderline". Denies: Hx Diabetes Mellitus Type 1, Hx Hyperthyroidism, Hx Hypothyroidism Renal/ Medical History: Denies: Hx Peritoneal Dialysis GI Medical History: Reports: Hx Gastroesophageal Reflux Disease, Hx Colonoscopy. Denies: Hx Cirrhosis, Hx Hepatitis Musculoskeletal Medical History: Reports Hx Arthritis, Reports Hx Muscle Spasm Skin Medical History: Denies Hx Eczema, Denies Hx Psoriasis Psychiatric Medical History: Reports: Hx Depression Infectious Medical History: Denies: Hx Hepatitis Past Surgical History: Reports: Hx Cardiac Catheterization, Hx Orthopedic Surgery - Left total knee replacement. C3-C4 and C4- C5 ACF. - Immunizations Hx Diphtheria, Pertussis, Tetanus Vaccination: Yes Review of Systems - Review of Systems Constitutional: No symptoms reported EENT: No symptoms reported Cardiovascular: See HPI Respiratory: No symptoms reported Gastrointestinal: No symptoms reported Genitourinary: No symptoms reported Musculoskeletal: See HPI Skin: No symptoms reported Neurological/Psychological: No symptoms reported Physical Exam - Vital signs Vitals: Temp Pulse Resp BP Pulse Ox 97.6 F 71 16 150/96 H 96 02/05/19 12:15 02/05/19 12:15 02/05/19 12:15 02/05/19 12:15 02/05/19 12:15 - Notes Notes: Vital signs reviewed, please refer to chart. Head is normocephalic, atraumatic. Pupils equal round, reactive to light. Oral mucosa is moist, uvula is midline. Examination of the neck yields no obvious deformity. He has some tenderness to palpation and ropiness of the anterior neck muscles and the trapezius, which does reproduce some of his pain. It tracks into the supraclavicular fossa, but I do not appreciate any significant adenopathy or asymmetry there. Heart is regular rate and rhythm. Lungs are clear to auscultation bilaterally. Abdomen is soft, nontender, normoactive bowel sounds throughout. Extremities without cyanosis, clubbing. Posterior calves are nontender. Peripheral pulses are equal. Skin is warm and dry. Patient is awake, alert, neurological exam is nonfocal. Course - Re-evaluation Re-evalutation: 02/05/19 16:15 Patient presents to the emergency department for evaluation. EKG, laboratory investigations, imaging is ordered through triage. Patient was given morphine here for his pain. Laboratory investigations revealed negative troponin x1, repeat is pending. Patient feels somewhat improved. This pain is not typical for cardiac pain. Given the duration of time he has had it I am not concerned about something more significant. He is to follow-up closely with primary care and cardiology, return to the ED with worsening or new concerning symptoms of any sort. 02/05/19 16:27 Cardiac enzymes negative x2. We will send him home. - Vital Signs Vital signs: Temp Pulse Resp BP Pulse Ox 97.6 F 71 17 101/73 97 02/05/19 12:15 02/05/19 12:15 02/05/19 16:01 02/05/19 16:00 02/05/19 16:01 - Laboratory Result Diagrams: 02/05/19 12:52 02/05/19 12:33 Laboratory results interpreted by me: 02/05/19 02/05/19 12:33 12:52 RDW 14.2 H Glucose 184 H - Diagnostic Test Radiology reviewed: Image reviewed, Reports reviewed Radiology results interpreted by me: 02/05/19 16:16 Chest X-Ray 02/05/19 12:25 IMPRESSION: NO SIGNIFICANT RADIOGRAPHIC FINDING IN THE CHEST. - EKG Interpretation by Me Additional EKG results interpreted by me: 02/05/19 16:16 Sinus mechanism with a rate of 63 bpm. Normal axis. IVCD. Nonspecific ST changes, but no acute changes concerning for ischemia or infarction. Discharge - Discharge Clinical Impression: Neck pain, Muscle pain, cervical Condition: Stable Disposition: HOME, SELF-CARE Instructions: Muscle Relaxers ([facility]) Additional Instructions: She is felt reactive to take muscle relaxer as directed until symptoms of improved. Follow-up with primary care this week. Return to the ED with worseni ng or new concerning symptoms of any sort. [facility]errals: [facility] [[facility]] - Follow up as needed
[2019-02-05 17:19] VITALS: BP 125/80
--- NOTE | 2019-02-05 19:36 | EKG REPORT ---
SEVERITY:- ABNORMAL ECG - SINUS RHYTHM NONSPECIFIC INTRAVENTRICULAR CONDUCTION DELAY : Confirmed by: Marisol Sanchez MD 05-Feb-2019 19:34:57
== END 2019-02-05 17:20 | disposition home or self-care (01) ==
LOC: ER 12:04
DX: M54.2 Cervicalgia (principal); R06.02 Shortness of breath; M79.602 Pain in left arm; I25.10 Atherosclerotic heart disease of native coronary artery without angina pectoris; E78.00 Pure hypercholesterolemia, unspecified; I10 Essential (primary) hypertension; E11.9 Type 2 diabetes mellitus without complications; Z88.2 Allergy status to sulfonamides; Z96.652 Presence of left artificial knee joint; I25.2 Old myocardial infarction
CPT/HCPCS: 93005; 99284; 96374; 36415; 85025; 80053; 84484; 83880; 71046; 93010; J2270

== ENCOUNTER → 2019-03-13 | Outpatient (CLI) | payer OTHER, MEDICARE ==
[2019-03-13 12:21] LABS: ABSOLUTE BASOPHILS # (AUTO) 0.1 10^3/uL (0.0-0.2); ABSOLUTE EOSINOPHILS # (AUTO) 0.4 10^3/uL (0.0-0.6); ABSOLUTE LYMPHOCYTES (AUTO) 2.6 10^3/uL (0.5-4.7); ABSOLUTE MONOCYTES (AUTO) 0.9 10^3/uL (0.1-1.4); ABSOLUTE NEUT (AUTO) 5.2 10^3/uL (1.7-8.2); BASOPHILS % (AUTO) 0.9 % (0-2); EOSINOPHILS % (AUTO) 4.5 % (0-6); HEMATOCRIT 45.2 % (37.9-51.0); HEMOGLOBIN 15.5 g/dL (13.5-17.0); LYMPHOCYTES % (AUTO) 28.2 % (13-45); MEAN CORPUSCULAR HEMOGLOBIN 30.7 pg (27.0-33.4); MEAN CORPUSCULAR HGB CONC 34.3 g/dL (32.0-36.0); MEAN CORPUSCULAR VOLUME 89 fl (80-97); MONOCYTES % (AUTO) 10.1 % (3-13); PLATELET COUNT 222 10^3/uL (150-450); RED BLOOD COUNT 5.06 10^6/uL (4.35-5.55); RED CELL DISTRIBUTION WIDTH 13.8 % (11.5-14.0); SEGMENTED NEUTROPHILS % (AUTO) 56.3 % (42-78); TOTAL CELLS COUNTED % (AUTO) 100 %; WHITE BLOOD COUNT 9.3 10^3/uL (4.0-10.5)
--- NOTE | 2019-03-13 12:26 | RADIOLOGY REPORT (SQ) ---
EXAM DESCRIPTION: CHEST PA/LATERAL COMPLETED DATE/TIME: 03/13/2019 11:56 am REASON FOR STUDY: PRE-OP COMPARISON: 02/05/2019 EXAM PARAMETERS: NUMBER OF VIEWS: two views TECHNIQUE: Digital Frontal and Lateral radiographic views of the chest acquired. RADIATION DOSE: NA LIMITATIONS: none FINDINGS: LUNGS AND PLEURA: No opacities, masses or pneumothorax. No pleural effusion. MEDIASTINUM AND HILAR STRUCTURES: No masses or contour abnormalities. HEART AND VASCULAR STRUCTURES: Heart normal size. No evidence for failure. BONES: No acute findings. HARDWARE: Partially visualized cervical fusion hardware. OTHER: No other significant finding. IMPRESSION: NO SIGNIFICANT RADIOGRAPHIC FINDING IN THE CHEST. TECHNICAL DOCUMENTATION: JOB ID: [id number] [employer]- All Rights Reserved Reading location - IP/workstation name: [email or web address]
[2019-03-13 12:43] LABS: ANION GAP 11 (5-19); BLOOD UREA NITROGEN 11 mg/dL (7-20); CALCIUM 9.7 mg/dL (8.4-10.2); CARBON DIOXIDE 26 mmol/L (22-30); CHLORIDE 98 mmol/L (98-107); GLUCOSE 226 mg/dL (75-110); POTASSIUM 4.5 mmol/L (3.6-5.0)
--- NOTE | 2019-03-13 15:16 | EKG REPORT ---
SEVERITY:- ABNORMAL ECG - SINUS RHYTHM VENTRICULAR PREMATURE COMPLEX NONSPECIFIC INTRAVENTRICULAR CONDUCTION DELAY : Confirmed by: Marisol Sanchez MD 13-Mar-2019 15:15:55
== END ==
LOC: OD 11:18
PROVIDERS: ATTEND Orthopaedic Surgery
DX: Z01.89 Encounter for other specified special examinations (principal); Z01.810 Encounter for preprocedural cardiovascular examination; Z01.811 Encounter for preprocedural respiratory examination
CPT/HCPCS: 36415; 71046; 80048; 85025; 93005; 93010

== ENCOUNTER 2019-04-07 10:44 | Emergency (ER) | payer OTHER, MEDICARE ==
--- NOTE | 2019-04-07 11:20 | ER Document Report ---
ED Medical Screen (RME) - General Chief Complaint: Chest Pain Stated Complaint: RIB PAIN Time Seen by Provider: 04/07/19 11:11 Primary Care Provider: JOYCE DANIELS DO [Primary Care Provider] - Follow up as needed Notes: HPI: 58-year-old male with history of diabetes, hypertension, possible DE in the past with no stents presenting for evaluation of chest pain and painful respiration 2 days post left shoulder surgery. Patient had surgery with Dr. Daniels. No abdominal pain nausea vomiting or fever. Patient states symptoms began after the surgery I have greeted and performed a rapid initial assessment of this patient. A comprehensive ED assessment and evaluation of the patient, analysis of test results and completion of the medical decision making process will be conducted by additional ED providers PHYSICAL EXAMINATION: GENERAL: Well-appearing, well-nourished and in mild acute distress. HEAD: Atraumatic, normocephalic. EYES: sclera anicteric, conjunctiva are normal. ENT: Moist mucous membranes. NECK: Normal range of motion LUNGS: Normal work of breathing, clear to auscultation mild tenderness on palpation of the chest wall HEART: 2+ radial pulses bilaterally, regular rate and rhythm ABD: limited by positioning for exam in triage. EXTREMITIES: no pitting or edema. No cyanosis. Left shoulder in sling NEUROLOGICAL: No focal neurological deficits. PSYCH: Normal mood, normal affect. SKIN: Warm, Dry, normal turgor, no rashes or lesions noted. discussed with Dr. Leon, ER attending TRAVEL OUTSIDE OF THE [place] IN LAST 30 DAYS: No - Related Data Allergies/Adverse Reactions: Sulfa (Sulfonamide Antibiotics) Allergy (Verified 02/05/19 12:19) Past Medical History - Past Medical History Cardiac Medical History: Reports: Hx Coronary Artery Disease, Hx Heart Attack, Hx Hypercholesterolemia, Hx Hypertension Denies: Hx Congestive Heart Failure, Hx DVT, Hx Pulmonary Embolism Pulmonary Medical History: Reports: Hx Sleep Apnea Denies: Hx Asthma, Hx COPD Neurological Medical History: Denies: Hx Seizures Endocrine Medical History: Reports: Hx Diabetes Mellitus Type 2 - "borderline". Denies: Hx Diabetes Mellitus Type 1, Hx Hyperthyroidism, Hx Hypothyroidism Renal/ Medical History: Denies: Hx Peritoneal Dialysis GI Medical History: Reports: Hx Gastroesophageal Reflux Disease, Hx Colonoscopy. Denies: Hx Cirrhosis, Hx Hepatitis Musculoskeltal Medical History: Reports Hx Arthritis, Reports Hx Muscle Spasm Skin Medical History: Denies Hx Eczema, Denies Hx Psoriasis Psychiatric Medical History: Reports: Hx Depression Infectious Medical History: Denies: Hx Hepatitis Past Surgical History: Reports: Hx Cardiac Catheterization, Hx Orthopedic Surgery - Left total knee replacement. C3-C4 and C4- C5 ACF. - Immunizations Hx Diphtheria, Pertussis, Tetanus Vaccination: Yes Physical Exam - Vital signs Vitals: Temp Pulse Resp BP Pulse Ox 97.8 F 77 18 145/70 H 96 04/07/19 11:03 04/07/19 11:03 04/07/19 11:03 04/07/19 11:03 04/07/19 11:03 Course - Vital Signs Vital signs: Temp Pulse Resp BP Pulse Ox 97.8 F 77 18 145/70 H 96 04/07/19 11:03 04/07/19 11:03 04/07/19 11:03 04/07/19 11:03 04/07/19 11:03 Doctor's Discharge - Discharge Referrals: JOYCE DANIELS DO [Primary Care Provider] - Follow up as needed
[2019-04-07] MEDS ORDERED: OXYCODONE-ACETAMINOPHEN 5-325 MG TABLET PO ONE (12:12)
[2019-04-07 12:38] LABS: ABSOLUTE BASOPHILS # (AUTO) 0.1 10^3/uL (0.0-0.2); ABSOLUTE EOSINOPHILS # (AUTO) 0.2 10^3/uL (0.0-0.6); ABSOLUTE LYMPHOCYTES (AUTO) 3.2 10^3/uL (0.5-4.7); ABSOLUTE MONOCYTES (AUTO) 1.1 10^3/uL (0.1-1.4); ABSOLUTE NEUT (AUTO) 6.5 10^3/uL (1.7-8.2); BASOPHILS % (AUTO) 0.6 % (0-2); EOSINOPHILS % (AUTO) 1.8 % (0-6); HEMATOCRIT 41.8 % (37.9-51.0); HEMOGLOBIN 14.6 g/dL (13.5-17.0); LYMPHOCYTES % (AUTO) 28.6 % (13-45); MEAN CORPUSCULAR HEMOGLOBIN 31.1 pg (27.0-33.4); MEAN CORPUSCULAR HGB CONC 34.9 g/dL (32.0-36.0); MEAN CORPUSCULAR VOLUME 89 fl (80-97); MONOCYTES % (AUTO) 9.9 % (3-13); PLATELET COUNT 206 10^3/uL (150-450); RED BLOOD COUNT 4.68 10^6/uL (4.35-5.55); RED CELL DISTRIBUTION WIDTH 14.2 % (11.5-14.0); SEGMENTED NEUTROPHILS % (AUTO) 59.1 % (42-78); TOTAL CELLS COUNTED % (AUTO) 100 %
[2019-04-07 13:04] LABS: ALBUMIN 4.2 g/dL (3.5-5.0); ALKALINE PHOSPHATASE 83 U/L (38-126); ANION GAP 8 (5-19); ASPARTATE AMINO TRANSFERASE 24 U/L (17-59); BILIRUBIN,TOTAL 0.4 mg/dL (0.2-1.3); BLOOD UREA NITROGEN 13 mg/dL (7-20); CALCIUM 9.5 mg/dL (8.4-10.2); CARBON DIOXIDE 28 mmol/L (22-30); CHLORIDE 102 mmol/L (98-107); GLUCOSE 116 mg/dL (75-110); POTASSIUM 4.2 mmol/L (3.6-5.0)
--- NOTE | 2019-04-07 13:52 | ER Document Report ---
Entered by WERO WITT SCRIBE 04/07/19 [id number] Acting as scribe for:DORETHA MARY MD ED General - General Chief Complaint: Chest Pain Stated Complaint: RIB PAIN Time Seen by Provider: 04/07/19 11:11 Primary Care Provider: JOYCE DANIELS DO [ACTIVE STAFF] - Follow up as needed Information source: Patient Notes: 58-year-old male presents to the emergency department with bilateral chest wall pain that began two days ago post left shoulder surgery. Patient explains that pain is worsen by moving and describes the pain as shooting. Patient reports SOB and hurts to breath. Patient denies vomiting, nausea, fever and abdominal pain. TRAVEL OUTSIDE OF THE [place] IN LAST 30 DAYS: No - Related Data Allergies/Adverse Reactions: Sulfa (Sulfonamide Antibiotics) Allergy (Verified 02/05/19 12:19) Past Medical History - General Information source: Patient - Social History Smoking Status: Current Every Day Smoker Cigarette use (# per day): Yes Chew tobacco use (# tins/day): No Frequency of alcohol use: Occasional Family History: Reviewed & Not Pertinent Patient has suicidal ideation: No Patient has homicidal ideation: No - Past Medical History Cardiac Medical History: Reports: Hx Coronary Artery Disease, Hx Heart Attack, Hx Hypercholesterolemia, Hx Hypertension Pulmonary Medical History: Reports: Hx Sleep Apnea Neurological Medical History: Denies: Hx Seizures Endocrine Medical History: Reports: Hx Diabetes Mellitus Type 2 - "borderline" GI Medical History: Reports: Hx Gastroesophageal Reflux Disease, Hx Colonoscopy Musculoskeletal Medical History: Reports Hx Arthritis, Reports Hx Muscle Spasm Psychiatric Medical History: Reports: Hx Depression Past Surgical History: Reports: Hx Cardiac Catheterization, Hx Orthopedic Surgery - Left total knee replacement. C3-C4 and C4- C5 ACF. - Immunizations Hx Diphtheria, Pertussis, Tetanus Vaccination: Yes Review of Systems - Review of Systems Constitutional: See HPI. denies: Fever EENT: No symptoms reported Cardiovascular: See HPI, Chest pain Respiratory: See HPI, Hurts to breathe, Short of breath Gastrointestinal: See HPI. denies: Abdominal pain, Nausea, Vomiting Genitourinary: No symptoms reported Male Genitourinary: No symptoms reported Musculoskeletal: No symptoms reported Skin: No symptoms reported Hematologic/Lymphatic: No symptoms reported Neurological/Psychological: No symptoms reported -: Yes All other systems reviewed and negative Physical Exam - Vital signs Vitals: Temp Pulse Resp BP Pulse Ox 97.8 F 77 18 145/70 H 96 04/07/19 11:03 04/07/19 11:03 04/07/19 11:03 04/07/19 11:03 04/07/19 11:03 - Notes Notes: Physical Exam: General: Alert, appears well. HEENT: Normocephalic. Atraumatic. PERRL. Extraocular movements intact. Orop harynx clear. Neck: Supple. Non-tender. Respiratory: No respiratory distress. Clear and equal breath sounds bilaterally. Anterior chest wall tenderness to palpation. Cardiovascular: Regular rate and rhythm. Abdominal: Normal Inspection. Non-tender. No distension. Normal Bowel Sounds. Back: No gross abnormalities. Extremities: Upper extremities: Normal inspection. Left arm restricted due to 2 days post shoulder surgery. Lower extremities: Normal inspection. No edema. Normal ROM. Neurological: Normal cognition. AAOx4. Normal speech. Psychological: Normal affect. Normal Mood. Skin: Warm. Dry. Normal color. Course - Re-evaluation Re-evalutation: 04/07/19 14:54 CTA of the chest is unremarkable, CTA of the abdomen shows the known 4.2 cm infrarenal abdominal aortic aneurysm. There is recommendation for every 12- month follow-up, and vascular surgery consultation. I had discussed with the patient during the physical exam, that his pain was most likely related to pulling and stretching on the pectoralis region while he was under general anesthesia for his left shoulder surgery. - Vital Signs Vital signs: Temp Pulse Resp BP Pulse Ox 97.8 F 77 18 145/70 H 96 04/07/19 11:03 04/07/19 11:03 04/07/19 11:03 04/07/19 11:03 04/07/19 11:03 - Laboratory Result Diagrams: 04/07/19 12:15 04/07/19 12:15 Laboratory results interpreted by me: 04/07/19 04/07/19 12:15 12:15 WBC 11.0 H RDW 14.2 H Glucose 116 H - Diagnostic Test Radiology reviewed: Image reviewed, Reports reviewed - CTA of the chest is unremarkable. CT of the abdomen shows a 4.2 cm infrarenal abdominal aortic aneurysm. Discharge - Discharge Clinical Impression: Chest wall pain following surgery, Aneurysm of infrarenal abdominal aorta Condition: Stable Disposition: HOME, SELF-CARE Additional Instructions: Chest Wall Pain: Your chest pain has been diagnosed as coming from the chest wall. This is often caused by straining the muscles or joints in the chest during physical activity, direct trauma, coughing, or vigorous vomiting. Persons with arthritis are especially prone to this type of pain, due to inflammation of the cartilage joints near the breast bone. Occasionally, no cause can be found. Rest from strenuous physical activity. This kind of chest pain is usually made worse by movement of the chest. Depending on the symptoms, we may prescribe medicine for pain, muscle relaxation, and antiinflammatory effects. If the pain is new, and seems to be due to muscle strain, cold packs can help. Otherwise, apply gentle warmth to the painful area for 15 minutes every hour or two. You should contact the doctor immediately if things change. Further evaluation is needed if you develop a fever or cough, if the nature of the pain changes, or if you become short of breath. The CT scan of your chest did not show any abnormalities. CT scan of your abdomen showed your infrarenal abdominal aortic aneurysm measures up to 4.2 cm. I suspect the pain in your chest is related to the pulling and stretching of the chest wall muscles during the surgical procedure he recently had. Continue your regular medications, try to avoid doing anything that makes your pain worse. [facility] and [facility] copies of your CT scans for your doctor to review and to enter into your records. Follow-up with your orthopedic surgeon if not improving. RETURN TO THE EMERGENCY ROOM IF ANY NEW OR WORSENING SYMPTOMS. Referrals: JOYCE DANIELS, DO [ACTIVE STAFF] - Follow up as needed I personally performed the services described in the documentation, reviewed and edited the documentation which was dictated to the scribe in my presence, and it accurately records my words and actions.
--- NOTE | 2019-04-07 13:55 | EKG REPORT ---
SEVERITY:- NORMAL ECG - SINUS RHYTHM : Confirmed by: Marisol Sanchez MD 07-Apr-2019 13:54:21
--- NOTE | 2019-04-07 14:14 | RADIOLOGY REPORT (SQ) ---
EXAM DESCRIPTION: CTA CHEST COMPLETED DATE/TIME: 04/07/2019 1:53 pm REASON FOR STUDY: sob/cp post shoulder surgery COMPARISON: 03/13/2018 TECHNIQUE: CT scan of the chest performed using helical scanning technique with dynamic intravenous contrast injection. Images reviewed with lung, soft tissue and bone windows. Reconstructed coronal and sagittal MPR images reviewed. Additional 3 dimensional post-processing performed to develop Maximal Intensity Projection images (PR P). All images stored on PACS. All CT scanners at this facility use dose modulation, iterative reconstruction, and/or weight based d osing when appropriate to reduce radiation dose to as low as reasonably achievable (ALARA). [facility]: Dose Right [facility]: CareDose [facility]: Dose Right [facility]: Teradose 4D [facility]: [employer] CONTRAST TYPE AND DOSE: contrast/concentration: Isovue 350.00 mg/ml; Total Contrast Delivered: 100.0 ml; Total Saline Delivered: 70.0 ml Contrast bolus optimized for the pulmonary arteries. Not diagnostic for the aorta. RENAL FUNCTION: See abdomen RADIATION DOSE: CT Rad equipment meets quality standard of care and radiation dose reduction techniq ues were employed. CTDIvol: 20.8 - 51.0 mGy. DLP: 1477 mGy-cm. . LIMITATIONS: None. FINDINGS: LUNGS AND PLEURA: No masses, infiltrates, or pneumothorax. No pleural effusions or pleura l calcifications. No suspicious masses. Stable 4 mm right upper lobe pulmonary nodule, stable since 2016. AORTA AND GREAT VESSELS: No aneurysm. No dissection of the thoracic aorta. HEART: No pericardial effusion. No significant coronary artery calcifications. PULMONARY ARTERIES: No emboli visualized in the main pulmonary arteries or the segmental branches. HILAR AND MEDIASTINAL STRUCTURES: No identified masses or abnormal nodes. HARDWARE: None in the chest. UPPER ABDOMEN: See separate report of the CT of the abdomen. THYROID AND OTHER SOFT TISSUES: No masses. No adenopathy. BONES: Partially visualized cervical fusion hardware. No acute bony abnormality. No suspicious osse ous findings. 3D MIPS: Confirm above findings. OTHER: No other significant finding. IMPRESSION: 1. No evidence of pulmonary embolus or other acute intrathoracic process. 2. Please see same-day abdomen CT for findings below the diaphragm. COMMENT: Quality ID # [id number]: Final reports with documentation of one or more dose reduction techniques (e.g., Automated exposure control, adjustment of the mA and/or kV according to patient size, use of iterative reconstruction technique) TECHNICAL DOCUMENTATION: JOB ID: [id number] 2010 [email or web address]- All Rights Reserved Reading location - IP/workstation name: [email or web address]
--- NOTE | 2019-04-07 14:25 | RADIOLOGY REPORT (SQ) ---
EXAM DESCRIPTION: CTA ABDOMEN/PELVIS W WO COMPLETED DATE/TIME: 04/07/2019 1:53 pm REASON FOR STUDY: known enlarging AAA COMPARISON: 10/19/2015. TECHNIQUE: CT scan of the abdominal aorta extending to the iliac bifurcation performed with and with out intravenous contrast using helical scanning technique with dynamic intravenous contrast injection . Images reviewed with lung, soft tissue, and bone windows. Reconstructed coronal and sagittal MPR im ages reviewed. All images stored on PACS. Advanced 3D imaging as volume rendering, MIPS, SSD performed? yes All CT scanners at this facility use dose modulation, iterative reconstruction, and/or weight based d osing when appropriate to reduce radiation dose to as low as reasonably achievable (ALARA). [facility]: Dose Right [facility]: CareDose [facility]: Dose Right [facility]: Teradose 4D [facility]: [employer] CONTRAST TYPE AND DOSE: See chest RENAL FUNCTION: Creatinine 0.67 LIMITATIONS: None. FINDINGS: AORTA AND VESSELS: There is an infrarenal abdominal aortic aneurysm measuring up to 4.2 cm maximally. Extensive mural thrombus along the right lateral wall. The aneurysm measures approximat raman 9.3 cm in cranial caudal dimension. Aneurysm previously measured 3.7 cm on exam dated 2015. The re is ectasia of the left common iliac artery measuring up to 18 mm. Scattered additional aortoiliac atherosclerosis. No evidence of high-grade luminal narrowing. The celiac, SMA, bilateral renals an d SHELL are widely patent. Nodule right renal artery is. LUNG BASES: See same-day chest CT. LIVER: Normal size. No masses or dilated ducts. SPLEEN: Normal size. No focal lesions. PANCREAS: No masses. No significant calcifications. No adjacent inflammation or peripancreatic fluid collections. Pancreatic duct not dilated. GALLBLADDER: No identified stones by CT criteria. No inflammatory changes to suggest cholecystitis. ADRENAL GLANDS: No significant masses or asymmetry. RIGHT KIDNEY AND URETER: No mass, calculi or urinary tract obstruction. LEFT KIDNEY AND URETER: No mass, calculi or urinary tract obstruction. RETROPERITONEUM: No retroperitoneal adenopathy, hemorrhage or masses. BOWEL AND PERITONEAL CAVITY: No masses or inflammatory changes. No free fluid or peritoneal masses. APPENDIX: Normal. ABDOMINAL WALL: No masses. No hernias. BONY STRUCTURES: No significant or acute findings. 3-D IMAGING: Confirms the above findings. OTHER: No other significant finding. IMPRESSION: 1. Infrarenal abdominal aortic aneurysm measuring up to 4.2 cm maximally. Aneurysm pre viously measured 3.7 cm on exam dated 10/19/2015. Follow-up recommendations as below. 2. No other evidence of acute intra-abdominal/pelvic process. COMMENT: AAA Size: Follow-up Recommendation 4.0-4.4 cm Every 12 months, vascular consultation recommended *Based upon the Society for Vascular Surgery Guidelines: J Vasc Surg. 2009 Nov;50(4 Suppl):S2-49 *For aortas of maximum diameter of 2.6-2.9 cm meeting the criteria for AAA (?1.5 x proximal normal se gment) TECHNICAL DOCUMENTATION: JOB ID: [id number] Quality ID # [id number]: Final reports with documentation of one or more dose reduction techniques (e.g., Au tomated exposure control, adjustment of the mA and/or kV according to patient size, use of iterative reconstruction technique) 2010 [employer]- All Rights Reserved Reading location - IP/workstation name: [email or web address]
[2019-04-07 15:32] VITALS: BP 120/92
== END 2019-04-07 15:32 | disposition home or self-care (01) ==
LOC: ER 10:44
DX: I71.4 Abdominal aortic aneurysm, without rupture (principal); G89.18 Other acute postprocedural pain; R07.89 Other chest pain; R06.02 Shortness of breath; R07.81 Pleurodynia; F17.210 Nicotine dependence, cigarettes, uncomplicated; E78.00 Pure hypercholesterolemia, unspecified; Z88.2 Allergy status to sulfonamides; I25.2 Old myocardial infarction; I25.10 Atherosclerotic heart disease of native coronary artery without angina pectoris; E11.9 Type 2 diabetes mellitus without complications; Z96.652 Presence of left artificial knee joint
CPT/HCPCS: 36415; 71275; 74174; 80053; 84484; 85025; 93005; 93010; 99284

== ENCOUNTER 2019-11-12 23:14 | Emergency (ER) | payer OTHER, MEDICARE ==
[2019-11-12 23:31] VITALS: BP 159/88
[2019-11-13] MEDS ORDERED: KETOROLAC TROMETHAMINE 60 MG/2 ML SDV IM ONE (00:51)
[2019-11-13] MEDS ORDERED: DEXAMETHASONE SOD PHOS INJ 10 MG/1 ML VIAL IM ONE (00:51)
[2019-11-13] MEDS ORDERED: HYDROCODONE/ACETAMINOPHEN 5-325 MG (6 TAB/ER DISP) PO PRN (00:52)
[2019-11-13] MEDS ORDERED: LIDOCAINE 5% (700 MG) TRANSDERMAL ADH..PATCH TP ONE (00:54)
--- NOTE | 2019-11-13 00:58 | ER Document Report ---
ED General - General Chief Complaint: Back Pain Stated Complaint: LEFT SIDE FLANK PAIN/BACK PAIN Time Seen by Provider: 11/13/19 00:51 Primary Care Provider: SAMIR GANGON [Primary Care Provider] - Follow up as needed Mode of Arrival: Ambulatory Information source: Patient Notes: 59-year-old male coming in today with left-sided low back pain that is shooting down his left leg. This started this afternoon while he was in the shower and he reached up and he suddenly had a pain in the left lower back that shot down his left leg. Denies bladder and bowel dysfunction. Denies saddle anesthesia. Denies focal weakness. Denies urinary symptoms. TRAVEL OUTSIDE OF THE [place] IN LAST 30 DAYS: No - Related Data Allergies/Adverse Reactions: Sulfa (Sulfonamide Antibiotics) Allergy (Verified 02/05/19 12:19) Past Medical History - Social History Smoking Status: Unknown if Ever Smoked Family History: Reviewed & Not Pertinent Patient has homicidal ideation: No - Past Medical History Cardiac Medical History: Reports: Hx Coronary Artery Disease, Hx Heart Attack, Hx Hypercholesterolemia, Hx Hypertension Denies: Hx Congestive Heart Failure, Hx DVT, Hx Pulmonary Embolism Pulmonary Medical History: Reports: Hx Sleep Apnea Denies: Hx Asthma, Hx COPD Neurological Medical History: Denies: Hx Seizures Endocrine Medical History: Reports: Hx Diabetes Mellitus Type 2 - "borderline". Denies: Hx Diabetes Mellitus Type 1, Hx Hyperthyroidism, Hx Hypothyroidism Renal/ Medical History: Denies: Hx Peritoneal Dialysis GI Medical History: Reports: Hx Gastroesophageal Reflux Disease, Hx Colonoscopy. Denies: Hx Cirrhosis, Hx Hepatitis Musculoskeletal Medical History: Reports Hx Arthritis, Reports Hx Muscle Spasm Skin Medical History: Denies Hx Eczema, Denies Hx Psoriasis Psychiatric Medical History: Reports: Hx Depression Infectious Medical History: Denies: Hx Hepatitis Past Surgical History: Reports: Hx Cardiac Catheterization, Hx Orthopedic Surgery - Left total knee replacement. C3-C4 and C4- C5 ACF. - Immunizations Hx Diphtheria, Pertussis, Tetanus Vaccination: Yes Review of Systems - Review of Systems Notes: Constitutional: No fevers. No chills. EENT: No eye redness. No eye pain. No ear pain. No sore throat. Cardiovascular: No chest pain. No palpitations. Respiratory: No cough. No shortness of breath. No respiratory distress. Gastrointestinal: No abdominal pain. No nausea, vomiting, or diarrhea. Genitourinary: Atraumatic. No lesions. No pain. No discharge. Musculoskeletal: Positive for left-sided low back pain Skin: No rash or lesions. Lymphatic: No swollen lymph nodes. Neurologic: No headache. No syncope. Psychiatric: No suicidal or homicidal ideation. Physical Exam - Vital signs Vitals: Temp Pulse Resp BP Pulse Ox 98.3 F 81 15 159/88 H 100 11/12/19 23:30 11/12/19 23:30 11/12/19 23:30 11/12/19 23:30 11/12/19 23:30 - Notes Notes: General: Well-developed, well-nourished. In no acute distress. Non-toxic appearing. Cardiac: Well-perfused. Regular rate and rhythm. No murmurs, rubs, or gallops. Pulmonary: No respiratory distress. No cyanosis. Bilateral lung fiels are clear to auscultation. Abdominal: Non-distended. Non-rigid. Bowels sounds are present in all four quadrants. No guarding or rebound. HEENT: Head is atraumatic. Conjunctivae not reddened. No tearing. PERRL. EOMI. Orbits atraumatic. No periorbital swelling or erythema. Oropharynx is without erythema, swelling, or exudates. Neck: Supple. No adenopathy. No meningismus. Dermatologic: Warm with good turgor. No rash. Atraumatic. Chest: Atraumatic. No chest wall tenderness to palpation. Musculoskeletal: Moves all extremities well. No range of motion deficits. no muscular or joint tenderness. No paraspinal muscle tenderness. No midline lumbar tenderness or step-off. Left-sided paralumbar tenderness Genitourinary: Examination deferred Neurologic: No gross neurologic deficits. Psychiatric: Normal mood. Course - Re-evaluation Re-evalutation: 11/13/19 00:55 Presentation consistent with acute lumbar radiculopathy or sciatica. Patient already takes cyclobenzaprine. We will give him some Toradol, dexamethasone, and a Lidoderm patch here. Will discharge home with prescription for prednisone. He will also have Charlotte to take for the acute pain. - Vital Signs Vital signs: Temp Pulse Resp BP Pulse Ox 98.3 F 81 15 159/88 H 100 11/12/19 23:30 11/12/19 23:30 11/12/19 23:30 11/12/19 23:30 11/12/19 23:30 Discharge - Discharge Clinical Impression: Elevated blood pressure reading Sciatica Qualifiers: Laterality: left Qualified Code(s): M54.32 - Sciatica, left side Condition: Good Disposition: HOME, SELF-CARE Instructions: Ice Packs ([facility]), Low Back Pain ([facility]), Oral Narcotic Medication ([facility]) Additional Instructions: Please take your chronic cyclobenzaprine as directed. Start prescription prednisone tomorrow. Charlotte is the medicine that you received in the hospital in the bottle. Take this for moderate to severe pain as directed. Lidocaine topical patches are available over the counter sold as generic or Salonpas. Follow-up as needed with your primary care provider Prescriptions: Hydrocodone/Acetaminophen [Charlotte 5-325 mg Tabs (6 Tab/ER Disp)] 1 tab PO Q6HP PRN #1 dspk PRN Reason: Prednisone [Deltasone 10 mg Tablet] 50 mg PO DAILY 5 Days #25 tablet Forms: Elevated Blood Pressure [facility] [[facility]] - Follow up as needed
== END 2019-11-13 01:20 | disposition home or self-care (01) ==
LOC: ER 23:14
DX: R03.0 Elevated blood-pressure reading, without diagnosis of hypertension (principal); M54.32 Sciatica, left side; M54.5 Low back pain; R10.9 Unspecified abdominal pain; I25.10 Atherosclerotic heart disease of native coronary artery without angina pectoris; E78.00 Pure hypercholesterolemia, unspecified; I10 Essential (primary) hypertension; Z88.2 Allergy status to sulfonamides; Z96.652 Presence of left artificial knee joint; I25.2 Old myocardial infarction
CPT/HCPCS: 99284; 96372; J1885; J1100

== ENCOUNTER 2019-11-13 12:00 | Emergency (ER) | payer OTHER, MEDICARE ==
[2019-11-13] MEDS ORDERED: DEXAMETHASONE SOD PHOS INJ 10 MG/1 ML VIAL IM ONE (12:52)
[2019-11-13] MEDS ORDERED: KETOROLAC TROMETHAMINE 60 MG/2 ML SDV IM ONE (12:52)
--- NOTE | 2019-11-13 12:56 | ER Document Report ---
ED Medical Screen (RME) - General Chief Complaint: Back Pain Stated Complaint: LOW BACK PAIN Time Seen by Provider: 11/13/19 12:41 Primary Care Provider: KALIN,SAMIR [Primary Care Provider] - Follow up as needed Mode of Arrival: Medic Information source: Patient Notes: 59-year-old male presented to ED for increasing pain to the low back. He states he had a history of low back pain but is never been this bad. He states the pain is so bad that he cannot walk very good. He states he cannot sleep. He states he has not lost any control of bowel bladder but he has had decreased urination. He states he was treated with Toradol and Decadron yesterday and that helped. He does have a rash to the left butt cheek. He states he has had them multiple times. He states he is already had a shingles shot. He states his shots helped.. Time but the pain is back is better worse than it was. I have ordered blood work CT of the lumbar spine repeat of the Toradol and D ecadron and he will be seen by another provider. He states his landlord does have positive covered test. He states he has been around her but not around her. He states the last time he has been around his landlord's was 3 days ago. I have greeted and performed a rapid initial assessment of this patient. A comprehensive ED assessment and evaluation of the patient, analysis of test results and completion of medical decision making process will be conducted by an additional ED providers. TRAVEL OUTSIDE OF THE [place] IN LAST 30 DAYS: No - Related Data Allergies/Adverse Reactions: Sulfa (Sulfonamide Antibiotics) Allergy (Verified 02/05/19 12:19) Past Medical History - Past Medical History Cardiac Medical History: Reports: Hx Coronary Artery Disease, Hx Heart Attack, Hx Hypercholesterolemia, Hx Hypertension Denies: Hx Congestive Heart Failure, Hx DVT, Hx Pulmonary Embolism Pulmonary Medical History: Reports: Hx Sleep Apnea Denies: Hx Asthma, Hx COPD Neurological Medical History: Denies: Hx Seizures Endocrine Medical History: Reports: Hx Diabetes Mellitus Type 2 - "borderline". Denies: Hx Diabetes Mellitus Type 1, Hx Hyperthyroidism, Hx Hypothyroidism Renal/ Medical History: Denies: Hx Peritoneal Dialysis GI Medical History: Reports: Hx Gastroesophageal Reflux Disease, Hx Colonoscopy. Denies: Hx Cirrhosis, Hx Hepatitis Musculoskeltal Medical History: Reports Hx Arthritis, Reports Hx Muscle Spasm Skin Medical History: Denies Hx Eczema, Denies Hx Psoriasis Psychiatric Medical History: Reports: Hx Depression Infectious Medical History: Denies: Hx Hepatitis Past Surgical History: Reports: Hx Cardiac Catheterization, Hx Orthopedic Surgery - Left total knee replacement. C3-C4 and C4- C5 ACF. - Immunizations Hx Diphtheria, Pertussis, Tetanus Vaccination: Yes Physical Exam - Vital signs Vitals: Temp Pulse Resp BP Pulse Ox 98.0 F 85 22 H 143/96 H 95 11/13/19 12:15 11/13/19 12:15 11/13/19 12:15 11/13/19 12:15 11/13/19 12:15 Course - Vital Signs Vital signs: Temp Pulse Resp BP Pulse Ox 98.0 F 85 22 H 143/96 H 95 11/13/19 12:15 11/13/19 12:15 11/13/19 12:15 11/13/19 12:15 11/13/19 12:15 Doctor's Discharge - Discharge Referrals: [facility] [[facility]] - Follow up as needed
[2019-11-13 14:09] LABS: ABSOLUTE MONOCYTES (AUTO) 0.2 10^3/uL (0.1-1.4); ABSOLUTE NEUT (AUTO) 11.6 10^3/uL (1.7-8.2); BASOPHILS % (AUTO) 0.2 % (0-2); LYMPHOCYTES % (AUTO) 8.1 % (13-45); MEAN CORPUSCULAR HEMOGLOBIN 31.2 pg (27.0-33.4); MEAN CORPUSCULAR HGB CONC 34.8 g/dL (32.0-36.0); MEAN CORPUSCULAR VOLUME 90 fl (80-97); MONOCYTES % (AUTO) 1.4 % (3-13); PLATELET COUNT 240 10^3/uL (150-450); RED BLOOD COUNT 5.13 10^6/uL (4.35-5.55); RED CELL DISTRIBUTION WIDTH 13.7 % (11.5-14.0); SEGMENTED NEUTROPHILS % (AUTO) 90.3 % (42-78); TOTAL CELLS COUNTED % (AUTO) 100 %; WHITE BLOOD COUNT 12.9 10^3/uL (4.0-10.5)
[2019-11-13 14:21] LABS: APPEARANCE,URINE SLIGHTLY-CLOUDY; BILIRUBIN,URINE NEGATIVE (NEGATIVE); COLOR,URINE YELLOW; GLUCOSE, URINE >=500 mg/dL (NEGATIVE); KETONES,URINE NEGATIVE (NEGATIVE); LEUKOCYTE ESTERASE,URINE NEGATIVE (NEGATIVE); NITRITE,URINE NEGATIVE (NEGATIVE); PROTEIN,URINE 30 mg/dL (NEGATIVE); URINE SPECIFIC GRAVITY 1.035; UROBILINOGEN,URINE NEGATIVE mg/dL (<2.0)
[2019-11-13 14:34] LABS: ALBUMIN 4.8 g/dL (3.5-5.0); ALKALINE PHOSPHATASE 84 U/L (38-126); ANION GAP 13 (5-19); ASPARTATE AMINO TRANSFERASE 23 U/L (17-59); BILIRUBIN,DIRECT 0.3 mg/dL (0.0-0.4); BILIRUBIN,TOTAL 0.5 mg/dL (0.2-1.3); BLOOD UREA NITROGEN 19 mg/dL (7-20); CALCIUM 10.4 mg/dL (8.4-10.2); CARBON DIOXIDE 24 mmol/L (22-30); CHLORIDE 100 mmol/L (98-107); GLUCOSE 174 mg/dL (75-110); POTASSIUM 5.2 mmol/L (3.6-5.0); TOTAL PROTEIN 7.9 g/dL (6.3-8.2)
--- NOTE | 2019-11-13 14:52 | ER Document Report ---
ED Neck/Back Problem - General Chief Complaint: Back Pain Stated Complaint: LOW BACK PAIN Time Seen by Provider: 11/13/19 12:41 Primary Care Provider: [facility] [Provider Group] - Follow up as needed [facility] - Follow up as needed Mode of Arrival: Medic Information source: Patient Notes: Patient presents complaining of left lower back pain that radiates to the left lower extremity. Patient states pain started yesterday. Patient states he was seen here earlier today but his pain started to worsen when he was at home. Pat ient denies any injury. Patient denies any urinary retention or incontinence. Patient denies any fever. Patient states that he does have chronic low back pain. Patient was given a steroid shot and Toradol shot in triage and states presently his pain is almost completely resolved although he is anxious about how he will feel when he returns home today. TRAVEL OUTSIDE OF THE [place] IN LAST 30 DAYS: No - HPI Patient complains to provider of: Lower back Onset: Yesterday Onset: Chronic Timing: Better Pain Level: 1 Recent injury: No Associated symptoms: Radiation to leg, Lower back pain Exacerbated by: Movement of trunk Relieved by: Nothing Similar symptoms previously: Yes Recently seen / treated by doctor: Yes - Related Data Allergies/Adverse Reactions: Sulfa (Sulfonamide Antibiotics) Allergy (Verified 02/05/19 12:19) Past Medical History - General Information source: Patient - Social History Smoking Status: Current Every Day Smoker Frequency of alcohol use: Occasional Drug Abuse: None Occupation: None Family History: Reviewed & Not Pertinent - Past Medical History Cardiac Medical History: Reports: Hx Coronary Artery Disease, Hx Heart Attack, Hx Hypercholesterolemia, Hx Hypertension Denies: Hx Congestive Heart Failure, Hx DVT, Hx Pulmonary Embolism Pulmonary Medical History: Reports: Hx Sleep Apnea Denies: Hx Asthma, Hx COPD Neurological Medical History: Denies: Hx Seizures Endocrine Medical History: Reports: Hx Diabetes Mellitus Type 2 - "borderline". Denies: Hx Diabetes Mellitus Type 1, Hx Hyperthyroidism, Hx Hypothyroidism Renal/ Medical History: Denies: Hx Peritoneal Dialysis GI Medical History: Reports: Hx Gastroesophageal Reflux Disease, Hx Colonoscopy. Denies: Hx Cirrhosis, Hx Hepatitis Musculoskeletal Medical History: Reports Hx Arthritis, Reports Hx Muscle Spasm Skin Medical History: Denies Hx Eczema, Denies Hx Psoriasis Psychiatric Medical History: Reports: Hx Depression Infectious Medical History: Denies: Hx Hepatitis Past Surgical History: Reports: Hx Cardiac Catheterization, Hx Orthopedic Surge ry - Left total knee replacement. C3-C4 and C4- C5 ACF. - Immunizations Hx Diphtheria, Pertussis, Tetanus Vaccination: Yes Review of Systems - Review of Systems Constitutional: No symptoms reported. denies: Fever, Recent illness EENT: No symptoms reported Cardiovascular: No symptoms reported. denies: Chest pain Respiratory: No symptoms reported. denies: Cough Gastrointestinal: No symptoms reported. denies: Vomiting Genitourinary: No symptoms reported. denies: Dysuria, Incontinence, Retention Male Genitourinary: No symptoms reported Musculoskeletal: Back pain Skin: No symptoms reported Hematologic/Lymphatic: No symptoms reported Neurological/Psychological: No symptoms reported Physical Exam - Vital signs Vitals: Temp Pulse Resp BP Pulse Ox 98.0 F 85 22 H 143/96 H 95 11/13/19 12:15 11/13/19 12:15 11/13/19 12:15 11/13/19 12:15 11/13/19 12:15 - General General appearance: Appears well, Alert In distress: None Notes: PHYSICAL EXAMINATION: GENERAL: Well-appearing, well-nourished and in no acute distress. HEAD: Atraumatic, normocephalic. EYES: sclera clear, anicteric, conjunctiva are normal. ENT: nares patent, Moist mucous membranes. NECK: Normal range of motion, supple no lymphadenopathy LUNGS: respirations unlabored HEART: Regular rate and rhythm without murmurs EXTREMITIES: Normal range of motion, no pitting or edema. No cyanosis. Gait normal, pt ambulates without difficulty BACK: Left lower lumbar paraspinal tenderness, no midline tenderness, no deformities or step-offs. No CVA tenderness. NEUROLOGICAL: Cranial nerves grossly intact. Normal speech, normal gait. No saddle anesthesia. PSYCH: Normal mood, normal affect. SKIN: Warm, Dry, normal turgor, no rashes or lesions noted. Course - Re-evaluation Re-evalutation: 11/13/19 15:50 Patient presents with a flareup of his chronic low back pain. Patient denies any injury. Patient without any fever. Patient does report radicular pain to the left lower extremity. No saddle anesthesia. Patient does have a mild leukocytosis although was recently given steroids. Patient was seen earlier thi s morning and given a dispense pack of narcotic medication and a prescription for steroids. Will provide patient with a prescription for topical lidocaine patches and encourage outpatient follow-up with his primary care provider for recheck. The patient presents with low back pain without signs of spinal cord compression, cauda equina syndrome, infection, aneurysm, or other serious etiology. The patient is neurologically intact. Given the extremely risk of these diagnoses further testing and evaluation for these possibilities does not appear to be indicated at this time. Patient has been instructed to return if the symptoms worsen or change in any way. - Vital Signs Vital signs: Temp Pulse Resp BP Pulse Ox 98.1 F 72 20 138/68 H 99 11/13/19 16:12 11/13/19 16:12 11/13/19 16:12 11/13/19 16:12 11/13/19 16:12 - Laboratory Result Diagrams: 11/13/19 13:55 11/13/19 13:55 Laboratory results interpreted by me: 11/13/19 11/13/19 11/13/19 13:55 13:55 13:55 WBC 12.9 H Lymph % (Auto) 8.1 L Otero % (Auto) 1.4 L Absolute Neuts (auto) 11.6 H Seg Neutrophils % 90.3 H Potassium 5.2 H Glucose 174 H Calcium 10.4 H Urine Protein 30 H Urine Glucose (UA) >=500 H Urine Blood SMALL H 11/13/19 15:51 Labs- All tests 24 hr 11/13/19 11/13/19 11/13/19 13:55 13:55 13:55 WBC 12.9 H RBC 5.13 Hgb 16.0 Hct 46.0 MCV 90 MCH 31.2 MCHC 34.8 RDW 13.7 Plt Count 240 Lymph % (Auto) 8.1 L Otero % (Auto) 1.4 L Eos % (Auto) 0.0 Baso % (Auto) 0.2 Absolute Neuts (auto) 11.6 H Absolute Lymphs (auto) 1.0 Absolute Monos (auto) 0.2 Absolute Eos (auto) 0.0 Absolute Basos (auto) 0.0 Seg Neutrophils % 90.3 H Sodium 137.4 Potassium 5.2 H Chloride 100 Carbon Dioxide 24 Anion Gap 13 BUN 19 Creatinine 0.80 Est GFR ( Amer) > 60 Est GFR (MDRD) Non-Af > 60 Glucose 174 H Calcium 10.4 H Total Bilirubin 0.5 Direct Bilirubin 0.3 Neonat Total Bilirubin Not Reportable Neonat Direct Bilirubin Not Reportable Neonat Indirect Bili Not Reportable AST 23 ALT 30 Alkaline Phosphatase 84 Total Protein 7.9 Albumin 4.8 Urine Color YELLOW Urine Appearance SLIGHTLY-CLOUDY Urine pH 5.0 Ur Specific [place] 1.035 Urine Protein 30 H Urine Glucose (UA) >=500 H Urine Ketones NEGATIVE Urine Blood SMALL H Urine Nitrite NEGATIVE Urine Bilirubin NEGATIVE Urine Urobilinogen NEGATIVE Ur Leukocyte Esterase NEGATIVE Urine WBC (Auto) 1 Urine RBC (Auto) 1 Squamous Epi Cells Auto 1 Urine Mucus (Auto) MANY Urine Ascorbic Acid NEGATIVE - Diagnostic Test Radiology reviewed: Reports reviewed Discharge - Discharge Clinical Impression: Sciatica Qualifiers: Laterality: left Qualified Code(s): M54.32 - Sciatica, left side Low back pain Qualifiers: Chronicity: chronic Back pain laterality: unspecified Sciatica presence: with sciatica Sciatica laterality: sciatica of left side Qualified Code(s): M54.42 - Lumbago with sciatica, left side Condition: Stable Disposition: HOME, SELF-CARE Instructions: Ice Packs ([facility]), Low Back Pain ([facility]), Sciatica ([facility]) Additional Instructions: Return immediately for any new or worsening symptoms Followup with your primary care provider, call tomorrow to make a followup appo intment Follow-up with pain management Prescriptions: Lidocaine [Lidoderm 5% (700 mg) Transdermal Patch] 1 patch TP DAILY PRN #10 adh..patch PRN Reason: Referrals: [facility] [[facility]] - Follow up as needed [facility] [Provider Group] - Follow up as needed
--- NOTE | 2019-11-13 15:23 | RADIOLOGY REPORT (SQ) ---
EXAM DESCRIPTION: CT LUMBAR SPINE WITHOUT IMAGES COMPLETED DATE/TIME: 11/13/2019 3:10 pm REASON FOR STUDY: Severe low back pain radiating down left leg COMPARISON: 04/07/[address] TECHNIQUE: Axial images acquired through the lumbar spine without intravenous contrast. Images revie wed with lung, soft tissue and bone windows. Reconstructed coronal and sagittal MPR images reviewed. Images stored on PACS. All CT scanners at this facility use dose modulation, iterative reconstruction, and/or weight based d osing when appropriate to reduce radiation dose to as low as reasonably achievable (ALARA). [facility]: Dose Right [facility]: CareDose [facility]: Dose Right [facility]: Teradose 4D [facility]: [place] Microwave RADIATION DOSE: mGy. LIMITATIONS: None. FINDINGS: Since the prior examination there has been no interval change in the grade 1 anterolisthes is of L5 on S1 with degenerative disc disease, moderate bilateral neural foraminal narrowing and bila teral pars interarticularis defects. Mild degenerative changes are present elsewhere throughout the lumbar spine. No compression deformity or evidence for acute fracture. Visualized portions of the b silviano pelvis and SI joints are intact. Similar appearance of the abdominal aortic aneurysm. VISUALIZED RIBS: No fractures. OTHER: No other significant finding. IMPRESSION: No acute findings. Stable exam compared with March 2019. TECHNICAL DOCUMENTATION: JOB ID: [id number] [place]-72 Quality ID # [id number]: Final reports with documentation of one or more dose reduction techniques (e.g., Au tomated exposure control, adjustment of the mA and/or kV according to patient size, use of iterative reconstruction technique) 2010 [employer]- All Rights Reserved Reading location - IP/workstation name: [email or web address]
[2019-11-13 16:13] VITALS: BP 138/68
== END 2019-11-13 16:13 | disposition home or self-care (01) ==
LOC: ER 12:00
DX: M54.42 Lumbago with sciatica, left side (principal); G89.29 Other chronic pain; F17.200 Nicotine dependence, unspecified, uncomplicated; I25.10 Atherosclerotic heart disease of native coronary artery without angina pectoris; I10 Essential (primary) hypertension; D72.829 Elevated white blood cell count, unspecified; Z88.2 Allergy status to sulfonamides
CPT/HCPCS: 99285; 96372; 36415; 85025; 80053; 81001; 72131; J1885; J1100

== ENCOUNTER 2019-11-21 16:10 | Emergency (ER) | payer OTHER, MEDICARE ==
[2019-11-21] MEDS ORDERED: DEXAMETHASONE SOD PHOSPHATE INJ 4 MG/1 ML VIAL IM ONE (17:56)
[2019-11-21] MEDS ORDERED: KETOROLAC TROMETHAMINE 60 MG/2 ML SDV IM ONE (17:56)
[2019-11-21] MEDS ORDERED: HYDROCODONE/ACETAMINOPHEN 5-325 MG (6 TAB/ER DISP) PO PRN (17:59)
--- NOTE | 2019-11-21 18:04 | ER Document Report ---
HPI - HPI Time Seen by Provider: 11/21/19 17:40 - REPRODUCTIVE Reproductive: DENIES: : Past Medical History - Social History Family History: Reviewed & Not Pertinent - Past Medical History Cardiac Medical History: Reports: Hx Coronary Artery Disease, Hx Heart Attack, Hx Hypercholesterolemia, Hx Hypertension Denies: Hx Congestive Heart Failure, Hx DVT, Hx Pulmonary Embolism Pulmonary Medical History: Reports: Hx Sleep Apnea Denies: Hx Asthma, Hx COPD Neurological Medical History: Denies: Hx Seizures Endocrine Medical History: Reports: Hx Diabetes Mellitus Type 2 - "borderline". Denies: Hx Diabetes Mellitus Type 1, Hx Hyperthyroidism, Hx Hypothyroidism Renal/ Medical History: Denies: Hx Peritoneal Dialysis GI Medical History: Reports: Hx Gastroesophageal Reflux Disease, Hx Colonoscopy. Denies: Hx Cirrhosis, Hx Hepatitis Musculoskeletal Medical History: Reports Hx Arthritis, Reports Hx Muscle Spasm Skin Medical History: Denies Hx Eczema, Denies Hx Psoriasis Psychiatric Medical History: Reports: Hx Depression Infectious Medical History: Denies: Hx Hepatitis Past Surgical History: Reports: Hx Cardiac Catheterization, Hx Orthopedic Surgery - Left total knee replacement. C3-C4 and C4- C5 ACF. - Immunizations Hx Diphtheria, Pertussis, Tetanus Vaccination: Yes Vertical Provider Document - INFECTION CONTROL TRAVEL OUTSIDE OF THE [place] IN LAST 30 DAYS: No Course - Vital Signs Vital signs: Temp Pulse Resp BP Pulse Ox 99.5 F 96 16 145/84 H 98 11/21/19 16:45 11/21/19 16:45 11/21/19 16:45 11/21/19 16:45 11/21/19 16:45 Discharge - Discharge Clinical Impression: Chronic pain, Sciatica of left side Condition: Stable Disposition: HOME, SELF-CARE Instructions: Sciatica ([facility]), Low Back Pain ([facility]), Stretching Exercises for the Back ([facility]) Prescriptions: Prednisone [Deltasone 20 mg Tablet] 3 tab PO DAILY 5 Days #15 tablet Naproxen 500 mg PO BID #10 tablet Forms: Return to Work Referrals: [facility] [[facility]] - Follow up as needed JOYCE DANIELS DO [ACTIVE STAFF] - Follow up as needed
--- NOTE | 2019-11-21 18:17 | ER Document Report ---
ED Medical Screen (RME) - General Chief Complaint: Numbness Stated Complaint: TOES ARE NUMB,LEFT LEG NUMBNESS Time Seen by Provider: 11/21/19 17:40 Primary Care Provider: KALIN,SAMIR [Primary Care Provider] - Follow up as needed JOYCE DANIELS DO [ACTIVE STAFF] - Follow up as needed TRAVEL OUTSIDE OF THE [place] IN LAST 30 DAYS: No - HPI Notes: 11/21/19 18:09 59-year-old male with a history of type 2 diabetes, chronic back pain presents to the emergency room today with complaints of left back pain that radiates down to his left toes with numbness and tingling. Patient states is become progressively worse. When he spoke to a nurse from the [facility], they advised to go to the emergency room immediately to get an emergent MRI. Patient states that he has had some dribbling but no urinary retention or urinary incontinence, when asked if he had any fecal incontinence he says that he has not been in the morning he is noticed some stool in his underpants. Patient has a upcoming MRI of his mid back and lower back in 2 weeks with the [facility]. Patient denies any recent trauma or falls. Patient had a CT of the lumbar spine on November 12, which was unchanged from his previous CT's. Patient is convinced that his numbness and tingling is unrelated to his type 2 diabetes or chronic back pain. Denies any saddle anesthesia. Denies any weakness in his lower extremities, reports worsening numbness and tingling of his toes. Denies any fevers chills, chest pain, shortness of breath, nausea vomiting diarrhea. I have greeted and performed a rapid initial assessment of this patient. A comprehensive ED assessment and evaluation of the patient, analysis of test results and completion of the medical decision making process will be conducted by additional ED providers. PHYSICAL EXAMINATION: GENERAL: Well-appearing, well-nourished and in no acute distress. HEAD: Atraumatic, normocephalic. EYES: Pupils equal round extraocular movements intact, conjunctiva are normal. NECK: Normal range of motion CV: s1, s2 regular LUNGS: No respiratory distress Musculoskeletal: Normal range of motion. No pain with flexion extension or rotating hips. normal hip rotation. DTR +2 in BLE equally. Strength 5 out of 5 both distally and proximally to bilateral lower extremities normal motor and sensory function in BLE equally. Distal pulses + 2 BLE equally. Noted left paraspinal tenderness near L2 and L3. Strength 5 out of 5 in bilateral lower extremities equally with push and pull and with walking. no spinal tenderness. No CVA tenderness bilaterally. Femoral pulses + 2 bilaterally and equally. No abrasions, scars, lacerations, ecchymosis of any recent trauma. normal gait with heel to toe, on tip toes, on heels. NEUROLOGICAL: Normal speech, normal gait. Psych: aggressive SKIN: Warm, Dry, normal turgor, no rashes or lesions noted. Unable to obtain a rectal exam in triage as well as obtaining a postvoid residual urine to determine if patient needs an MRI however he has no focal neurological deficit on a full neurological examination that was performed in triage. Since patient would like to go ahead and receive a rectal examination to determine if he needs an MRI, which cannot be done in triage, patient states that he would like to wait - Related Data Allergies/Adverse Reactions: Sulfa (Sulfonamide Antibiotics) Allergy (Verified 02/05/19 12:19) Past Medical History - Past Medical History Cardiac Medical History: Reports: Hx Coronary Artery Disease, Hx Heart Attack, Hx Hypercholesterolemia, Hx Hypertension Denies: Hx Congestive Heart Failure, Hx DVT, Hx Pulmonary Embolism Pulmonary Medical History: Reports: Hx Sleep Apnea Denies: Hx Asthma, Hx COPD Neurological Medical History: Denies: Hx Seizures Endocrine Medical History: Reports: Hx Diabetes Mellitus Type 2 - "borderline". Denies: Hx Diabetes Mellitus Type 1, Hx Hyperthyroidism, Hx Hypothyroidism Renal/ Medical History: Denies: Hx Peritoneal Dialysis GI Medical History: Reports: Hx Gastroesophageal Reflux Disease, Hx Colonoscopy. Denies: Hx Cirrhosis, Hx Hepatitis Musculoskeltal Medical History: Reports Hx Arthritis, Reports Hx Muscle Spasm Skin Medical History: Denies Hx Eczema, Denies Hx Psoriasis Psychiatric Medical History: Reports: Hx Depression Infectious Medical History: Denies: Hx Hepatitis Past Surgical History: Reports: Hx Cardiac Catheterization, Hx Orthopedic Surgery - Left total knee replacement. C3-C4 and C4- C5 ACF. - Immunizations Hx Diphtheria, Pertussis, Tetanus Vaccination: Yes Physical Exam - Vital signs Vitals: Temp Pulse Resp BP Pulse Ox 99.5 F 96 16 145/84 H 98 11/21/19 16:45 11/21/19 16:45 11/21/19 16:45 11/21/19 16:45 11/21/19 16:45 Course - Vital Signs Vital signs: Temp Pulse Resp BP Pulse Ox 99.5 F 96 16 145/84 H 98 11/21/19 16:45 11/21/19 16:45 11/21/19 16:45 11/21/19 16:45 11/21/19 16:45 Doctor's Discharge - Discharge Clinical Impression: Chronic pain, Sciatica of left side Condition: Stable Disposition: HOME, SELF-CARE Instructions: Low Back Pain ([facility]), Sciatica ([facility]), Stretching Exercises for the Back ([facility]) Prescriptions: Prednisone [Deltasone 20 mg Tablet] 3 tab PO DAILY 5 Days #15 tablet Naproxen 500 mg PO BID #10 tablet Forms: Return to Work [facility]errals: [facility] [[facility]] - Follow up as needed JOYCE DANIELS DO [ACTIVE STAFF] - Follow up as needed
[2019-11-21 19:02] LABS: APPEARANCE,URINE CLEAR; BILIRUBIN,URINE NEGATIVE (NEGATIVE); COLOR,URINE YELLOW; GLUCOSE, URINE NEGATIVE (NEGATIVE); KETONES,URINE NEGATIVE (NEGATIVE); LEUKOCYTE ESTERASE,URINE NEGATIVE (NEGATIVE); NITRITE,URINE NEGATIVE (NEGATIVE); PROTEIN,URINE NEGATIVE (NEGATIVE); URINE SPECIFIC GRAVITY 1.019; UROBILINOGEN,URINE NEGATIVE mg/dL (<2.0)
--- NOTE | 2019-11-21 19:10 | RADIOLOGY REPORT (SQ) ---
EXAM DESCRIPTION: L SPINE WHOLE IMAGES COMPLETED DATE/TIME: 11/21/2019 5:48 pm REASON FOR STUDY: acute on chronic sciatica, back pain COMPARISON: CT lumbar spine, 11/13/2019. NUMBER OF VIEWS: Five views including obliques. TECHNIQUE: AP, lateral, oblique, and sacral radiographic images acquired of the lumbar spine. LIMITATIONS: None. FINDINGS: MINERALIZATION: Normal. SEGMENTATION: Normal. No transitional anatomy. ALIGNMENT: Normal. VERTEBRAE: No acute fracture or loss of vertebral body height. Mild spondylosis with small marginal osteophytes at the endplates. No lytic or blastic bone lesion. DISCS: Mild degenerative disc disease with loss of intervertebral disc height. This is most prominen t at L5-S1. POSTERIOR ELEMENTS: Chronic bilateral L5 pars interarticularis defects. Mild anterolisthesis L5 on S 1. Findings are stable. No evidence of acute fracture of the posterior elements. HARDWARE: None in the spine. PARASPINAL SOFT TISSUES: Normal. PELVIS: Intact as visualized. No fractures or worrisome bone lesions. SI joints intact. OTHER: No other significant finding. IMPRESSION: No significant interval change. Mild anterolisthesis L5 on S1 secondary to chronic bila teral pars interarticularis defects. No acute fracture or dislocation. Spondylosis and degenerative disc disease. TECHNICAL DOCUMENTATION: JOB ID: [id number] 2010 [employer]- All Rights Reserved Reading location - IP/workstation name: [email or web address]
[2019-11-22] MEDS ORDERED: MORPHINE SULFATE 10 MG/ML INJ IV ONE (04:18)
--- NOTE | 2019-11-22 04:34 | ER Document Report ---
ED General - General TRAVEL OUTSIDE OF THE [place] IN LAST 30 DAYS: No - Related Data Home Medications: Patient is unsure medications. He is on antihypertensives, diabetic medications. Also notes a muscle relaxer. <HAWA BRAUN - Last Filed: 11/22/19 06:01> <DORETHA MARY - Last Filed: 11/22/19 09:53> - General Chief Complaint: Leg Pain Stated Complaint: TOES ARE NUMB,LEFT LEG NUMBNESS Time Seen by Provider: 11/21/19 17:40 Primary Care Provider: [facility] [Primary Care Provider] - Follow up as needed JOYCE DANIELS DO [ACTIVE STAFF] - Follow up as needed - HPI Notes: Patient is a 59-year-old male who presents to the emergency department for evaluation of pain and weakness in his left leg, numbness to his toes, low back pain. Patient has been seen here several times for similar symptoms. About 2 weeks ago he noticed that he had diminished sensation in his left lower extremity. He was in the shower when he raised his arms, developed a sudden sharp and stabbing pain in his lower back, that radiated into his left buttock and his left leg. It brought him to his knees. He states that since then he has had progressive weakness in his left leg, states he is having difficulty lifting his toes. He denies any bladder incontinence, although he admits to some urinary hesitation on occasion. He states that this morning he woke and noticed some stool in his underwear, which has never happened before. He denies any saddle anesthesia. (HAWA BRAUN) - Related Data Allergies/Adverse Reactions: Sulfa (Sulfonamide Antibiotics) Allergy (Verified 11/22/19 07:19) Past Medical History - General Information source: Patient - Social History Smoking Status: Current Every Day Smoker Chew tobacco use (# tins/day): No Frequency of alcohol use: Occasional Drug Abuse: Marijuana Family History: Reviewed & Not Pertinent Patient has homicidal ideation: No - Past Medical History Cardiac Medical History: Reports: Hx Coronary Artery Disease, Hx Heart Attack, Hx Hypercholesterolemia, Hx Hypertension Denies: Hx Congestive Heart Failure, Hx DVT, Hx Pulmonary Embolism Pulmonary Medical History: Reports: Hx Sleep Apnea Denies: Hx Asthma, Hx COPD Neurological Medical History: Denies: Hx Seizures Endocrine Medical History: Reports: Hx Diabetes Mellitus Type 2 - "borderline". Denies: Hx Diabetes Mellitus Type 1, Hx Hyperthyroidism, Hx Hypothyroidism Renal/ Medical History: Denies: Hx Peritoneal Dialysis GI Medical History: Reports: Hx Gastroesophageal Reflux Disease, Hx Colonoscopy. Denies: Hx Cirrhosis, Hx Hepatitis Musculoskeletal Medical History: Reports Hx Arthritis, Reports Hx Muscle Spasm Skin Medical History: Denies Hx Eczema, Denies Hx Psoriasis Psychiatric Medical History: Reports: Hx Depression Infectious Medical History: Denies: Hx Hepatitis Past Surgical History: Reports: Hx Cardiac Catheterization, Hx Orthopedic Surgery - Left total knee replacement. C3-C4 and C4- C5 ACF. - Immunizations Hx Diphtheria, Pertussis, Tetanus Vaccination: Yes <HAWA BRAUN M - Last Filed: 11/22/19 06:01> Review of Systems - Review of Systems Constitutional: No symptoms reported EENT: No symptoms reported Cardiovascular: No symptoms reported Respiratory: No symptoms reported Gastrointestinal: See HPI Genitourinary: See HPI Musculoskeletal: See HPI Skin: No symptoms reported Neurological/Psychological: See HPI <HAWA BRAUN M - Last Filed: 11/22/19 06:01> Physical Exam <HAWA BRAUN M - Last Filed: 11/22/19 06:01> - Vital signs Vitals: Temp Pulse Resp BP Pulse Ox 99.5 F 96 16 145/84 H 98 11/21/19 16:45 11/21/19 16:45 11/21/19 16:45 11/21/19 16:45 11/21/19 16:45 - Notes Notes: This is a 59-year-old male who appears his stated age, no acute distress. Vital signs reviewed, please refer to chart. Head is normocephalic, atraumatic. Pupils equal round, reactive to light. Neck is supple without meningismus. Heart is regular rate and rhythm. Lungs are clear to auscultation bilaterally. Abdomen is obese, nontender, normoactive bowel sounds throughout. Extremities without cyanosis, clubbing. Posterior calves are nontender. Peripheral pulses are equal. Skin is warm and dry. Examination of the spine yields midline tenderness without associated step-off at approximately L4-5 and into the sacrum. Paraspinal musculature tenderness is noted from L3 down to L5 on the le ft. Positive straight leg raise on the left. Patient has 3+ out of 5 strength that is extension of the left knee, but dorsiflexion of the foot and toes. Diminished sensation to light touch over the dorsal aspect of the foot. Markedly diminished Achilles reflex on the left. The remainder the neurological exam of the lower extremities is unremarkable. (HAWA BRAUN) Course - Laboratory Result Diagrams: 11/22/19 05:14 11/22/19 05:14 - Diagnostic Test Radiology reviewed: Reports reviewed <HAWA BRAUN - Last Filed: 11/22/19 06:01> - Laboratory Result Diagrams: 11/22/19 05:14 11/22/19 05:14 <DORETHA MARY - Last Filed: 11/22/19 09:53> - Re-evaluation Re-evalutation: 11/22/19 04:34 Patient presents to the emergency department for evaluation. He had sudden onset of low back pain, progressive weakness of his legs, and now has some concerned over stool incontinence. This patient is diabetic, has chronic back issues. I am concerned about the possibility of a significant herniation and possible cauda equina syndrome. Laboratory investigations were ordered. Currently patient can get an MRI here in the department approximately 2 hours. I do not see any benefit to transferring this patient to an outside facility for an MRI, as I know that this will significantly delay the time of this possibly happening. Laboratory investigations and pain medicine are ordered. I ordered his MRI. Patient is currently stable. 11/22/19 05:54 Blood work is unremarkable.. MRI is pending. Patient remains stable. I suspec t some sort of pathology will show us of an MRI. Assuming no surgical emergency, patient can go home with steroids and pain medication. He states his blood sugars normally well controlled, runs around 120. Care of this patient will be turned over to the dayshift provider pending MRI and blood results. (HAWA BRAUN) - Vital Signs Vital signs: Temp Pulse Resp BP Pulse Ox 98.0 F 73 18 126/86 H 94 11/22/19 07:50 11/22/19 01:46 11/22/19 01:46 11/22/19 08:59 11/22/19 08:59 - Laboratory Laboratory results interpreted by me: 11/21/19 11/22/19 11/22/19 18:45 05:14 05:14 RDW 14.2 H Lymph % (Auto) 11.5 L Norton % (Auto) 1.4 L Seg Neutrophils % 86.9 H Glucose 192 H Urine Blood SMALL H - Diagnostic Test Radiology results interpreted by me: 11/22/19 04:35 Lumbar Spine X-Ray 11/21/19 18:19 IMPRESSION: No significant interval change. Mild anterolisthesis L5 on S1 secondary to chronic bilateral pars interarticularis defects. No acute fracture or dislocation. Spondylosis and degenerative disc disease. (HAWA BRAUN) Discharge <HAWA BRAUN - Last Filed: 11/22/19 06:01> <DORETHA MARY - Last Filed: 11/22/19 09:53> - Discharge Clinical Impression: Lumbar radiculopathy Chronic pain Qualifiers: Chronic pain type: other chronic pain Qualified Code(s): G89.29 - Other chronic pain Condition: Stable Disposition: HOME, SELF-CARE Instructions: Low Back Pain ([facility]), Sciatica ([facility]), Stretching Exercises for the Back ([facility]) Additional Instructions: Take the medications as prescribed. Take the MRI report and CD with you to see your primary care provider for appropriate referral to a spine surgeon if they feel it is needed. Follow-up with your primary care provider for further management of your back issues until you can see a pet nutrition specialist. RETURN TO THE EMERGENCY ROOM IF ANY NEW OR WORSENING SYMPTOMS. Prescriptions: Prednisone [Deltasone 10 mg Tablet] 10 mg PO ASDIR PRN #21 tablet PRN Reason: Naproxen [Naprosyn] 500 mg PO BID #10 tablet Forms: Return to Work Referrals: [facility] [Primary Care Provider] - Follow up as needed JOYCE DANIELS DO [ACTIVE STAFF] - Follow up as needed
[2019-11-22 05:53] LABS: ABSOLUTE MONOCYTES (AUTO) 0.1 10^3/uL (0.1-1.4); ABSOLUTE NEUT (AUTO) 7.3 10^3/uL (1.7-8.2); BASOPHILS % (AUTO) 0.2 % (0-2); HEMATOCRIT 47.9 % (37.9-51.0); HEMOGLOBIN 16.3 g/dL (13.5-17.0); LYMPHOCYTES % (AUTO) 11.5 % (13-45); MEAN CORPUSCULAR HEMOGLOBIN 30.6 pg (27.0-33.4); MEAN CORPUSCULAR VOLUME 90 fl (80-97); MONOCYTES % (AUTO) 1.4 % (3-13); PLATELET COUNT 232 10^3/uL (150-450); RED BLOOD COUNT 5.31 10^6/uL (4.35-5.55); RED CELL DISTRIBUTION WIDTH 14.2 % (11.5-14.0); SEGMENTED NEUTROPHILS % (AUTO) 86.9 % (42-78); TOTAL CELLS COUNTED % (AUTO) 100 %; WHITE BLOOD COUNT 8.4 10^3/uL (4.0-10.5)
[2019-11-22 05:58] LABS: ALBUMIN 4.5 g/dL (3.5-5.0); ALKALINE PHOSPHATASE 106 U/L (38-126); ANION GAP 13 (5-19); ASPARTATE AMINO TRANSFERASE 27 U/L (17-59); BILIRUBIN,DIRECT 0.2 mg/dL (0.0-0.4); BILIRUBIN,TOTAL 0.6 mg/dL (0.2-1.3); BLOOD UREA NITROGEN 16 mg/dL (7-20); CALCIUM 9.8 mg/dL (8.4-10.2); CARBON DIOXIDE 23 mmol/L (22-30); CHLORIDE 101 mmol/L (98-107); GLUCOSE 192 mg/dL (75-110); POTASSIUM 4.4 mmol/L (3.6-5.0); TOTAL PROTEIN 7.3 g/dL (6.3-8.2)
[2019-11-22] MEDS ORDERED: LORAZEPAM INJ 2 MG/1 ML VIAL IV ONE (07:41)
--- NOTE | 2019-11-22 07:43 | ER Document Report ---
Doctor's Note Notes: 11/22/19 07:42 MRI is ready for the patient. He is up walking around. He states he is not really having much pain at this point. He is concerned about his claustrophobia and needs medication prior to the MRI. He will be given Ativan 1 mg IV, and the nurses to ask the MRI staff to call if he becomes too anxious so we can give him additional medication, rather than sending him back to the emergency room with an unfinished study. 11/22/19 09:40 The MRI shows bulging disks at L4-5 and L5-S1. I discussed the scan with the radiologist. He does not see anything that would cause the patient to have stool incontinence. I reviewed the findings with the patient and the plan and he is to follow-up with his doctor at the [place] [facility].
--- NOTE | 2019-11-22 09:20 | RADIOLOGY REPORT (SQ) ---
EXAM DESCRIPTION: MRI LUMBAR SPINE WITHOUT IMAGES COMPLETED DATE/TIME: 11/22/2019 8:54 am REASON FOR STUDY: pain, left leg weakness, bowel incontinence COMPARISON: CT dated 11/13/2019, conventional radiographs dated 11/21/2019 TECHNIQUE: Sagittal and Axial imaging includes T1, T2, STIR and gradient echo sequences. Coronal T2/ HASTE imaging. LIMITATIONS: None. FINDINGS: VISUALIZED UPPER ABDOMEN: Limited evaluation. No acute or suspicious findings suggested. SEGMENTATION: No transitional anatomy. The lowest well-developed disc space is labeled L5-S1. ALIGNMENT: Grade 1 anterolisthesis of L5 on S1. This is stable. VERTEBRAE: Intact. BONE MARROW: Normal. No marrow replacement or reactive changes. DISC SIGNAL: Multilevel desiccation loss of normal water signal throughout the lumbar spine. POSTERIOR ELEMENTS: Bilateral pars defects at L5-S1. HARDWARE: None in the spine. CORD AND CONUS: Normal in size and signal intensity. Conus at the appropriate level. SOFT TISSUES: No aortic aneurysm seen. No bulky retroperitoneal adenopathy or mass. No paraspinal mas s or fluid. L1-L2: No significant spinal stenosis or exit foraminal stenosis. L2-L3: No significant spinal stenosis or exit foraminal stenosis. L3-L4: No significant spinal stenosis or exit foraminal stenosis. L4-L5: There is annular disc bulging along with a left paracentral extruded disc fragment. Mild cent ral stenosis. There is asymmetric narrowing of the left neural foramina. L5-S1: No significant spina l stenosis or exit foraminal stenosis. L5-S1: Broad-based annular disc bulging. Bilateral facet arthropathy. No significant central steno sis. There is mild bilateral foraminal stenosis. LOWER THORACIC: Incompletely imaged. No stenosis seen. SACRUM: Visualized upper sacrum intact. OTHER: No other significant findings. IMPRESSION: 1. Annular disc bulging at L4-L5 with a focal left paracentral extradural defect. Most likely extruded disc fragment. There is asymmetric narrowing of the left neural foramina and mild c entral stenosis. 2. Grade 1 anterolisthesis of L5 on S1. Bilateral pars defects. This results in bilateral foramina l stenosis. TECHNICAL DOCUMENTATION: JOB ID: [id number] [employer]- All Rights Reserved Reading location - IP/workstation name: [email or web address]
[2019-11-22 10:14] VITALS: BP 133/97
== END 2019-11-22 10:00 | disposition home or self-care (01) ==
LOC: ER 16:10
DX: M54.32 Sciatica, left side (principal); G89.29 Other chronic pain; M54.9 Dorsalgia, unspecified; R20.0 Anesthesia of skin; E11.9 Type 2 diabetes mellitus without complications; Z88.2 Allergy status to sulfonamides; I25.10 Atherosclerotic heart disease of native coronary artery without angina pectoris; I25.2 Old myocardial infarction; E78.00 Pure hypercholesterolemia, unspecified; I10 Essential (primary) hypertension
CPT/HCPCS: 99285; 96372; 96374; 36415; 85025; 80053; 81001; 72148; 72110; J1100; J1885; J2060

== ENCOUNTER 2020-01-08 11:21 | Emergency (ER) | payer OTHER, MEDICARE ==
[2020-01-08] MEDS ORDERED: NORMAL SALINE 1000 ML 1,000 ML IV ONE (12:21)
--- NOTE | 2020-01-08 12:23 | ER Document Report ---
ED Medical Screen (RME) - General Chief Complaint: Dizziness Stated Complaint: POSSIBLE SYNCOPE Time Seen by Provider: 01/08/20 12:20 Primary Care Provider: [facility] [Primary Care Provider] - Follow up as needed Information source: Patient Notes: Patient presents stating that he has been feeling faint with position changes after kneeling or sitting. Patient states that he last felt faint yesterday. Patient reports occasional shortness of breath. Patient denies any chest pain. Patient denies any change in his recent medications. Patient does have a history of diabetes, hypertension chronic back pain and dyslipidemia. I have greeted and performed a rapid initial assessment of this patient. A comprehensive ED assessment and evaluation of the patient, analysis of test results and completion of the medical decision making process will be conducted by additional ED providers. TRAVEL OUTSIDE OF THE [place] IN LAST 30 DAYS: No - Related Data Allergies/Adverse Reactions: Sulfa (Sulfonamide Antibiotics) Allergy (Verified 11/22/19 07:19) Past Medical History - Past Medical History Cardiac Medical History: Reports: Hx Coronary Artery Disease, Hx Heart Attack, Hx Hypercholesterolemia, Hx Hypertension Denies: Hx Congestive Heart Failure, Hx DVT, Hx Pulmonary Embolism Pulmonary Medical History: Reports: Hx Sleep Apnea Denies: Hx Asthma, Hx COPD Neurological Medical History: Denies: Hx Seizures Endocrine Medical History: Reports: Hx Diabetes Mellitus Type 2 - "borderline". Denies: Hx Diabetes Mellitus Type 1, Hx Hyperthyroidism, Hx Hypothyroidism Renal/ Medical History: Denies: Hx Peritoneal Dialysis GI Medical History: Reports: Hx Gastroesophageal Reflux Disease, Hx Colonoscopy. Denies: Hx Cirrhosis, Hx Hepatitis Musculoskeltal Medical History: Reports Hx Arthritis, Reports Hx Muscle Spasm Skin Medical History: Denies Hx Eczema, Denies Hx Psoriasis Psychiatric Medical History: Reports: Hx Depression Infectious Medical History: Denies: Hx Hepatitis Past Surgical History: Reports: Hx Cardiac Catheterization, Hx Orthopedic Surgery - Left total knee replacement. C3-C4 and C4- C5 ACF. - Immunizations Hx Diphtheria, Pertussis, Tetanus Vaccination: Yes Physical Exam - Vital signs Vitals: Temp Pulse Resp BP Pulse Ox 98.0 F 92 16 114/58 L 97 01/08/20 11:31 01/08/20 11:31 01/08/20 11:31 01/08/20 11:31 01/08/20 11:31 - Respiratory Respiratory status: No respiratory distress Breath sounds: Normal - Cardiovascular Rhythm: Regular Heart sounds: S1 appreciated, S2 appreciated Course - Vital Signs Vital signs: Temp Pulse Resp BP Pulse Ox 98.0 F 92 16 114/58 L 97 01/08/20 11:31 01/08/20 11:31 01/08/20 11:31 01/08/20 11:31 01/08/20 11:31 Doctor's Discharge - Discharge Referrals: [facility] [Primary Care Provider] - Follow up as needed
--- NOTE | 2020-01-08 12:41 | RADIOLOGY REPORT (SQ) ---
EXAM DESCRIPTION: CHEST SINGLE VIEW IMAGES COMPLETED DATE/TIME: 01/08/2020 12:32 pm REASON FOR STUDY: near syncope COMPARISON: 03/13/2019 EXAM PARAMETERS: NUMBER OF VIEWS: One view. TECHNIQUE: Single frontal radiographic view of the chest acquired. RADIATION DOSE: NA LIMITATIONS: None. FINDINGS: LUNGS AND PLEURA: Mild bibasilar infiltrates consistent with atelectasis or pneumonia. No pneumothorax. No effusions. MEDIASTINUM AND HILAR STRUCTURES: No masses. Contour normal. HEART AND VASCULAR STRUCTURES: Heart normal in size. Normal vasculature. BONES: No acute findings. HARDWARE: None in the chest. OTHER: No other significant finding. IMPRESSION: New asymmetric basilar airspace disease consistent with atelectasis or pneumonia. TECHNICAL DOCUMENTATION: JOB ID: [id number] 2010 [employer]- All Rights Reserved Reading location - IP/workstation name: [email or web address]
[2020-01-08 13:03] LABS: ABSOLUTE BASOPHILS # (AUTO) 0.1 10^3/uL (0.0-0.2); ABSOLUTE EOSINOPHILS # (AUTO) 0.4 10^3/uL (0.0-0.6); ABSOLUTE LYMPHOCYTES (AUTO) 2.7 10^3/uL (0.5-4.7); ABSOLUTE MONOCYTES (AUTO) 1.1 10^3/uL (0.1-1.4); BASOPHILS % (AUTO) 0.7 % (0-2); EOSINOPHILS % (AUTO) 4.3 % (0-6); HEMATOCRIT 43.7 % (37.9-51.0); HEMOGLOBIN 14.9 g/dL (13.5-17.0); LYMPHOCYTES % (AUTO) 28.8 % (13-45); MEAN CORPUSCULAR HEMOGLOBIN 30.8 pg (27.0-33.4); MEAN CORPUSCULAR HGB CONC 34.1 g/dL (32.0-36.0); MEAN CORPUSCULAR VOLUME 90 fl (80-97); MONOCYTES % (AUTO) 12.4 % (3-13); PLATELET COUNT 217 10^3/uL (150-450); RED BLOOD COUNT 4.84 10^6/uL (4.35-5.55); RED CELL DISTRIBUTION WIDTH 14.1 % (11.5-14.0); SEGMENTED NEUTROPHILS % (AUTO) 53.8 % (42-78); TOTAL CELLS COUNTED % (AUTO) 100 %; WHITE BLOOD COUNT 9.2 10^3/uL (4.0-10.5)
[2020-01-08 13:12] LABS: APPEARANCE,URINE CLEAR; BILIRUBIN,URINE NEGATIVE (NEGATIVE); COLOR,URINE YELLOW; GLUCOSE, URINE >=500 mg/dL (NEGATIVE); KETONES,URINE NEGATIVE (NEGATIVE); LEUKOCYTE ESTERASE,URINE NEGATIVE (NEGATIVE); NITRITE,URINE NEGATIVE (NEGATIVE); PROTEIN,URINE NEGATIVE (NEGATIVE); URINE SPECIFIC GRAVITY 1.025; UROBILINOGEN,URINE NEGATIVE mg/dL (<2.0)
[2020-01-08 13:31] LABS: ALBUMIN 4.3 g/dL (3.5-5.0); ALKALINE PHOSPHATASE 76 U/L (38-126); ANION GAP 9 (5-19); ASPARTATE AMINO TRANSFERASE 24 U/L (17-59); BILIRUBIN,DIRECT 0.2 mg/dL (0.0-0.4); BILIRUBIN,TOTAL 0.6 mg/dL (0.2-1.3); BLOOD UREA NITROGEN 21 mg/dL (7-20); CALCIUM 9.9 mg/dL (8.4-10.2); CARBON DIOXIDE 26 mmol/L (22-30); CHLORIDE 101 mmol/L (98-107); GLUCOSE 203 mg/dL (75-110); TOTAL PROTEIN 7.1 g/dL (6.3-8.2)
--- NOTE | 2020-01-08 14:09 | EKG REPORT ---
SEVERITY:- OTHERWISE NORMAL ECG - SINUS RHYTHM RIGHT AXIS DEVIATION : Confirmed by: Kush Brooks MD 08-Jan-2020 14:09:14
--- NOTE | 2020-01-08 18:17 | RADIOLOGY REPORT (SQ) ---
EXAM DESCRIPTION: CT HEAD WITHOUT IMAGES COMPLETED DATE/TIME: 01/08/2020 6:04 pm REASON FOR STUDY: Dizziness and weakness right leg COMPARISON: CT 11/28/2015 MR 11/29/2015 TECHNIQUE: Axial images acquired through the brain without intravenous contrast. Images reviewed wi th bone, brain and subdural windows. Additional sagittal and coronal reconstructions were generated. Images stored on PACS. All CT scanners at this facility use dose modulation, iterative reconstruction, and/or weight based d osing when appropriate to reduce radiation dose to as low as reasonably achievable (ALARA). [facility]: Dose Right [facility]: CareDose [facility]: Dose Right [facility]: Teradose 4D [facility]: Smart [employer] RADIATION DOSE: CT Rad equipment meets quality standard of care and radiation dose reduction techniq ues were employed. CTDIvol: 53.2 mGy. DLP: 1177 mGy-cm. mGy. LIMITATIONS: None. FINDINGS: VENTRICLES: Normal size and contour. CEREBRUM: No masses. No hemorrhage. No midline shift. No evidence for acute infarction. Normal gra y/white matter differentiation. No areas of low density in the white matter. CEREBELLUM: No masses. No hemorrhage. No alteration of density. No evidence for acute infarction. EXTRAAXIAL SPACES: No fluid collections. No masses. ORBITS AND GLOBE: No intra- or extraconal masses. Normal contour of globe without masses. CALVARIUM: No fracture. PARANASAL SINUSES: No fluid or mucosal thickening. SOFT TISSUES: No mass or hematoma. OTHER: No other significant finding. IMPRESSION: NORMAL BRAIN CT WITHOUT CONTRAST. EVIDENCE OF ACUTE STROKE: NO. COMMENT: Quality ID # [id number]: Final reports with documentation of one or more dose reduction techniques (e.g., Automated exposure control, adjustment of the mA and/or kV according to patient size, use of iterative reconstruction technique) TECHNICAL DOCUMENTATION: JOB ID: [id number] 2010 [employer]- All Rights Reserved Reading location - IP/workstation name: [email or web address]
--- NOTE | 2020-01-08 18:53 | RADIOLOGY REPORT (SQ) ---
EXAM DESCRIPTION: CAROTID DOPPLER IMAGES COMPLETED DATE/TIME: 01/08/2020 6:45 pm REASON FOR STUDY: Intermittent dizziness COMPARISON: 2016 TECHNIQUE: Grayscale ultrasound, Doppler velocity and spectra, and color Doppler images acquired of the extra-cranial carotid and vertebral arteries. Images stored on PACS. LIMITATIONS: None. FINDINGS: RIGHT CAROTID CCA Velocities: Within normal limits. ICA Velocities Peak systolic 94 cm/s. End diastolic 53 cm/s. Proximal ICA/CCA peak systolic ratio 1.0. Intimal thickening. LEFT CAROTID CCA Velocities: Within normal limits. ICA Velocities Peak systolic 82 cm/s. End diastolic 43 cm/s. Proximal ICA/CCA peak systolic ratio 0.9. Intimal thickening VERTEBRAL ARTERIES: Antegrade flow. Normal waveforms. SUBCLAVIAN ARTERIES: No finding. OTHER: No other significant finding. IMPRESSION: NO HEMODYNAMICALLY SIGNIFICANT STENOSIS. COMMENT: Quality ID #[id number]: Velocity criteria are extrapolated from the diameter data as defined by t he Society of Radiologists in Ultrasound Consensus Conference. Radiology 2003: 229; 340-346. TECHNICAL DOCUMENTATION: JOB ID: [id number] 2010 [employer]- All Rights Reserved Reading location - IP/workstation name: [email or web address]
--- NOTE | 2020-01-08 20:17 | ER Document Report ---
ED Dizziness/Weakness - General Chief Complaint: Dizziness Stated Complaint: POSSIBLE SYNCOPE Time Seen by Provider: 01/08/20 12:20 Primary Care Provider: KALIN,SAMIR [Primary Care Provider] - Follow up as needed Mode of Arrival: Ambulatory Information source: Patient Cannot obtain history due to: Unstable vital signs Notes: 59-year-old man presenting to the emergency department with a complaint of positional dizziness and imbalance and feeling like he is going to pass out for approximately 3 months. States that he talked to his friend who is a neurosurgeon who convinced him to come to the hospital because he is concerned that he may have a carotid blockage. He denies focal weakness, change in speech or vision. He has not been treated by anyone and is worried that he has a vascular deficit. He has a history of diabetes mellitus, hypercholesterolemia, hypertension, and sleep apnea. TRAVEL OUTSIDE OF THE [place] IN LAST 30 DAYS: No - Related Data Allergies/Adverse Reactions: Sulfa (Sulfonamide Antibiotics) Allergy (Verified 11/22/19 07:19) Past Medical History - General Information source: Patient - Social History Smoking Status: Unknown if Ever Smoked Family History: Reviewed & Not Pertinent - Past Medical History Cardiac Medical History: Reports: Hx Coronary Artery Disease, Hx Heart Attack, Hx Hypercholesterolemia, Hx Hypertension Denies: Hx Congestive Heart Failure, Hx DVT, Hx Pulmonary Embolism Pulmonary Medical History: Reports: Hx Sleep Apnea Denies: Hx Asthma, Hx COPD Neurological Medical History: Denies: Hx Seizures Endocrine Medical History: Reports: Hx Diabetes Mellitus Type 2 - "borderline". Denies: Hx Diabetes Mellitus Type 1, Hx Hyperthyroidism, Hx Hypothyroidism Renal/ Medical History: Denies: Hx Peritoneal Dialysis GI Medical History: Reports: Hx Gastroesophageal Reflux Disease, Hx Colonoscopy. Denies: Hx Cirrhosis, Hx Hepatitis Musculoskeletal Medical History: Reports Hx Arthritis, Reports Hx Muscle Spasm Skin Medical History: Denies Hx Eczema, Denies Hx Psoriasis Psychiatric Medical History: Reports: Hx Depression Infectious Medical History: Denies: Hx Hepatitis Past Surgical History: Reports: Hx Cardiac Catheterization, Hx Orthopedic Surgery - Left total knee replacement. C3-C4 and C4- C5 ACF. - Immunizations Hx Diphtheria, Pertussis, Tetanus Vaccination: Yes Review of Systems - Review of Systems Notes: Constitutional: Negative for fever. HENT: Negative for sore throat. Eyes: Negative for visual changes. Cardiovascular: Negative for chest pain. Respiratory: Negative for shortness of breath. Gastrointestinal: Negative for abdominal pain, vomiting or diarrhea. Genitourinary: Negative for dysuria. Musculoskeletal: Negative for back pain. Skin: Negative for rash. Neurological: See HPI 10 point ROS negative except as marked above and in HPI. Physical Exam - Vital signs Vitals: Temp Pulse Resp BP Pulse Ox 98.0 F 92 16 114/58 L 97 01/08/20 11:31 01/08/20 11:31 01/08/20 11:31 01/08/20 11:31 01/08/20 11:31 - Notes Notes: PHYSICAL EXAMINATION: Physical Exam: General: Well-nourished well-developed 59-year-old man in no acute distress HEENT: NC/AT, pupils equal round and reactive to light, MM moist,nares clear, oropharynx clear, airway patent, + + lateral nystagmus Neck: supple, no adenopathy, no masses. Good range of motion Lungs: clear, no wheezing, no rales no rhonchi CVS: Regular rate and rhythm no murmur gallop or rub Abdomen: Soft, active, nontender, no masses, no hepatosplenomegaly Ext: No edema, clubbing or cyanosis. Neuro: Alert and responsive, moving all 4 extremities on command, cranial nerves intact, no focal findings Skin: Intact no open lesions, no rash Course - Vital Signs Vital signs: Temp Pulse Resp BP Pulse Ox 98.1 F 79 18 133/82 H 95 01/08/20 17:11 01/08/20 17:37 01/08/20 20:01 01/08/20 20:01 01/08/20 20:01 - Laboratory Result Diagrams: 01/08/20 12:51 01/08/20 12:51 Laboratory results interpreted by me: 01/08/20 01/08/20 01/08/20 12:49 12:51 12:51 RDW 14.1 H Sodium 135.8 L BUN 21 H Glucose 203 H POC Glucose 198 H Urine Glucose (UA) 01/08/20 12:51 RDW Sodium BUN Glucose POC Glucose Urine Glucose (UA) >=500 H - Diagnostic Test Radiology reviewed: Image reviewed, Reports reviewed Radiology results interpreted by me: 01/08/20 20:27 Chest X-Ray 01/08/20 12:21 IMPRESSION: New asymmetric basilar airspace disease consistent with atelectasis or pneumonia. Head CT 01/08/20 17:08 IMPRESSION: NORMAL BRAIN CT WITHOUT CONTRAST. EVIDENCE OF ACUTE STROKE: NO. Carotid Doppler Study 01/08/20 17:09 IMPRESSION: NO HEMODYNAMICALLY SIGNIFICANT STENOSIS. - EKG Interpretation by Me Rate: Normal - EKG interpreted by Dr. Barboza: Normal sinus rhythm, rate 90, OR interval 188 ms, QT interval 342 ms, normal axis, no acute ST or T wave abnormalities, no ischemic findings, compared to EKG dated 04/08/2019, there are no acte interval changes. Interpretation abnormal EKG Discharge - Discharge Clinical Impression: Dizziness, Positional vertigo Condition: Good Disposition: HOME, SELF-CARE Instructions: Vertigo (OM), Dizziness (OM), Meclizine ([facility]) Additional Instructions: You were seen in the emergency department tonight Doppler of the carotids was negative as well as a CT scan of the brain which reveals no signs of stroke. Your symptoms positional dizziness suggestive of possible imbalance in the inner ear system that causes vertigo. We are giving you meclizine to try for the symptoms and follow-up with your primary doctor who could refer you to ENT if needed. If his symptoms are worsening or if you have other concerns you may return to the emergency department for further evaluation and treatment. HOME CARE INSTRUCTIONS & INFORMATION: Thank you for choosing us for your [facility] needs. We hope you're satisfied with the care you received. After you leave, you must properly care for your problem and, at the same time, observe its progress. Any condition can change. Some illnesses can change rapidly over hours or days. If your condition worsens, return to the Emergency Department or see your physician promptly. ABOUT YOUR X-RAYS AND EKG'S: If you had an EKG or X-rays taken, they have been read by the Emergency Physician. The X-rays and EKG's will also be read by a Radiologist or [facility] within 24 hours. If discrepancies are noted, you will be notified by telephone. Please be certain the ED has a correct telephone number & address where you can be reached. Also, realize that some fractures or abnormalities do not show up on initial X-rays. If your symptoms continue, see your physician. ABOUT YOUR LABORATORY TEST: If you had laboratory tests, the results have been reviewed by the Emergency Physician. Some test results (for example cultures) may not be available for several days. You will be contacted if any test result shows you need additional treatment. Please be certain the ED has a correct telephone number and address where you can be reached. ABOUT YOUR MEDICATIONS: You will receive instructions on how to take your medicine on the prescription label you receive. Additional information may be provided by the Pharmacy. If you have questions afterwards, call the ED for clarification or further instructions. Some prescribed medications may cause drowsiness. Do not perform tasks such as driving a car or operating machinery without consulting your Pharmacist. If you feel you need a refill of pain medication, your condition will need re-evaluation. Please do not call for a refill of any medication. ABOUT YOUR SIGNATURE: Signature of this document acknowledges to followin. Understanding that you received emergency treatment and that you may be released before al medical problems are known or treated. Please be certain the ED has a correct phone number & address where you can be reached. 2. Acknowledgement that you will arrange for follow-up care as recommended. 3. Authorization for the Emergency Physician to provide information to your follow-up Physician in order to maximize your care. AT ANY TIME, IF YOUR SYMPTOMS CHANGE SIGNIFICANTLY OR WORSEN OR YOU DEVELOP NEW SYMPTOMS, RETURN TO THE EMERGENCY DEPARTMENT IMMEDIATELY FOR RE-EVALUATION. OUR GOAL IS TO PROVIDE EXCELLENT MEDICAL CARE! WE HOPE THAT WE HAVE MET YOUR EXPECTATIONS DURING YOUR EMERGENCY DEPARTMENT VISIT AND THAT YOU FEEL YOU HAVE RECEIVED EXCELLENT CARE! Prescriptions: Meclizine HCl [Antivert 25 mg Tablet] 25 mg PO TID PRN #30 tablet PRN Reason: [facility]errals: [facility] [[facility]] - Follow up as needed
[2020-01-08] MEDS ORDERED: MECLIZINE HCL 25 MG TABLET PO ONE (20:38)
[2020-01-08 21:00] VITALS: BP 133/78
== END 2020-01-08 21:00 | disposition home or self-care (01) ==
LOC: ER 11:21
DX: R42 Dizziness and giddiness (principal); R06.02 Shortness of breath; I25.10 Atherosclerotic heart disease of native coronary artery without angina pectoris; E78.00 Pure hypercholesterolemia, unspecified; I10 Essential (primary) hypertension; E11.9 Type 2 diabetes mellitus without complications; I25.2 Old myocardial infarction; Z88.2 Allergy status to sulfonamides
CPT/HCPCS: 93005; 99285; 96360; 36415; 82962; 83735; 85025; 80053; 81001; 84484; 93880; 71045; 70450; 93010; J7030